=== PATIENT | female | born 1995 | race Caucasian/White ===

== ENCOUNTER 2016-10-15 14:58 | Emergency (ER) | payer OTHER ==
[2016-10-15] MEDS ORDERED: SODIUM CHLORIDE 0.9% 1,000 ML IV STA (16:53)
[2016-10-15] MEDS ORDERED: METOCLOPRAMIDE 5 MG/ML 2 ML VIAL IVP STA (16:53)
[2016-10-15 17:10] LABS: Basophils # (A) 0.1 k/uL (0-0.2); Basophils % (A) 1 %; CH 28.8; CHCM 34.3; Eosinophils # (A) 0.1 k/uL (0-0.7); Eosinophils % (A) 1 %; HCT 41.8 % (34.0-46.0); HDW 2.46; HGB 13.9 gm/dL (11.4-16.0); Luc # (Auto) 0.21; Luc % (Auto) 2; Lymphocytes # (A) 2.1 k/uL (1.0-4.8); Lymphocytes % (A) 21 %; MCH 28.1 pg (25.0-35.0); MCHC 33.3 g/dL (31.0-37.0); MCV 84.3 fL (80.0-100.0); Mean Platelet Volume 7.1; Monocytes # (A) 0.4 k/uL (0-1.0); Monocytes % (A) 4 %; Neutrophils % (A) 71 %; RBC 4.95 m/uL (3.80-5.40); RDW 12.5 % (11.5-15.5); WBC 9.8 k/uL (3.8-10.6); WBC (Perox) 9.82
[2016-10-15 17:13] LABS: Amorphous Sediment,Urine Rare /hpf; Appearance,Urine Cloudy (Clear); Bacteria,Urine Occasional /hpf; Bilirubin,Urine Negative (Negative); Glucose,Urine (UA) Negative (Negative); Ketones,Urine 4+ (Negative); Leukocyte Esterase,Urine Trace (Negative); Mucus,Urine Few /hpf; Nitrite,Urine Negative (Negative); Particle Count 9411; Protein,Urine Trace (Negative); RBC,Urine 2 /hpf (0-5); Specific Gravity,Urine 1.022 (1.001-1.035); Squamous Epithelial Cell,Urine 12 /hpf (0-4); UA Billing (MACRO vs. MICRO) MICRO; Urobilinogen,Urine <2.0 mg/dL (<2.0); WBC,Urine 12 /hpf (0-5)
[2016-10-15 17:24] LABS: ALT 21 U/L (9-52); AST 16 U/L (14-36); Alkaline Phosphatase 56 U/L (38-126); Amylase 47 U/L (30-110); Anion Gap 13 mmol/L; Blood Urea Nitrogen 9 mg/dL (7-17); Calcium 9.7 mg/dL (8.4-10.2); Carbon Dioxide 24 mmol/L (22-30); Chloride 101 mmol/L (98-107); Glucose 83 mg/dL (74-99); Non-African American GFR(MDRD) >60 (>60 ml/min/1.73 sqM); Potassium 3.7 mmol/L (3.5-5.1); Sodium 138 mmol/L (137-145); Total Bilirubin 0.6 mg/dL (0.2-1.3)
--- NOTE | 2016-10-15 17:30 | ED ---
Nausea/Vomiting/Diarrhea HPI - General Chief complaint: Nausea/Vomiting/Diarrhea Stated complaint: 8 wks preg/poss dehydration Time Seen by Provider: 10/15/16 16:42 Source: patient, RN notes reviewed Mode of arrival: ambulatory Limitations: no limitations - History of Present Illness Initial comments: 20-year-old female presents emergency Department with chief complaint of nausea vomiting. Patient states is a weeks . Patient has no see her TRANSPORTATION LEAD this he states he is scheduled appointment. Patient has fever, chills, change in bowel habits. She denies any constipation, diarrhea, dysuria or hematuria. Denies any abdominal pain,, cramping or any vaginal bleeding or vaginal discharge. Patient states she is just concerned about dehydration. She states she has no complaints of . Patient is A0. Patient has NO KNOWN DRUG ALLERGIES. Patient's currently taking vitamin. Patient offers no complaints. - Related Data Previous Rx's Medication Instructions Recorded Metoclopramide [Reglan] 10 mg PO TID PRN #15 tab 10/15/16 Allergies Allergy/AdvReac Type Severity Reaction Status Date / Time No Known Allergies Allergy Verified 10/15/16 17:17 Review of Systems ROS Statement: Those systems with pertinent positive or pertinent negative responses have been documented in the HPI. ROS Other: All systems not noted in ROS Statement are negative. Past Medical History Past Medical History: No Reported History History of Any Multi-Drug Resistant Organisms: None Reported Past Surgical History: No Surgical Hx Reported Past Psychological History: No Psychological Hx Reported Smoking Status: Never smoker Past Alcohol Use History: Rare Past Drug Use History: None Reported General Exam Limitations: no limitations General appearance: alert, in no apparent distress Head exam: Present: atraumatic, normocephalic, normal inspection ENT exam: Present: normal oropharynx Neck exam: Present: normal inspection, full ROM. Absent: tenderness, meningismus, lymphadenopathy Respiratory exam: Present: normal lung sounds bilaterally. Absent: respiratory distress, wheezes, rales, rhonchi, stridor Cardiovascular Exam: Present: regular rate, normal rhythm, normal heart sounds. Absent: systolic murmur, diastolic murmur, rubs, gallop, clicks GI/Abdominal exam: Present: soft, normal bowel sounds. Absent: distended, tenderness, guarding, rebound, rigid Back exam: Absent: CVA tenderness (R), CVA tenderness (L) Neurological exam: Present: alert, oriented X3, CN II-XII intact Skin exam: Present: warm, dry, intact, normal color. Absent: rash Course Vital Signs 10/15/16 10/15/16 16:09 18:04 Temperature 98.1 F 98.4 F Pulse Rate 87 63 Respiratory 18 16 Rate Blood Pressure 135/71 108/59 O2 Sat by Pulse 97 98 Oximetry Medical Decision Making - Medical Decision Making 20-year-old female presented emergency department with chief complaint of nausea vomiting . Patient states she feels much improved after IV fluids. Patient will be discharged with a tablet the right groin. Patient will follow-up with her TRANSPORTATION LEAD. Patient hasn't noted abdominal pain. Patient did have some ketones noted in urine though she was hydrated. Return parameters were discussed - Lab Data Result diagrams: 10/15/16 16:55 10/15/16 16:55 Lab Results 10/15/16 10/15/16 10/15/16 Range/Units 16:55 16:55 16:55 WBC 9.8 (3.8-10.6) k/uL RBC 4.95 (3.80-5.40) m/uL Hgb 13.9 (11.4-16.0) gm/dL Hct 41.8 (34.0-46.0) % MCV 84.3 (80.0-100.0) fL MCH 28.1 (25.0-35.0) pg MCHC 33.3 (31.0-37.0) g/dL RDW 12.5 (11.5-15.5) % Plt Count 284 (150-450) k/uL Neutrophils % 71 % Lymphocytes % 21 % Monocytes % 4 % Eosinophils % 1 % Basophils % 1 % Neutrophils # 7.0 (1.3-7.7) k/uL Lymphocytes # 2.1 (1.0-4.8) k/uL Monocytes # 0.4 (0-1.0) k/uL Eosinophils # 0.1 (0-0.7) k/uL Basophils # 0.1 (0-0.2) k/uL Sodium 138 (137-145) mmol/L Potassium 3.7 (3.5-5.1) mmol/L Chloride 101 (98-107) mmol/L Carbon Dioxide 24 (22-30) mmol/L Anion Gap 13 mmol/L BUN 9 (7-17) mg/dL Creatinine 0.53 (0.52-1.04) mg/dL Est GFR (MDRD) Af Amer >60 (>60 ml/min/1.73 sqM) Est GFR (MDRD) Non-Af >60 (>60 ml/min/1.73 sqM) Glucose 83 (74-99) mg/dL Calcium 9.7 (8.4-10.2) mg/dL Total Bilirubin 0.6 (0.2-1.3) mg/dL AST 16 (14-36) U/L ALT 21 (9-52) U/L Alkaline Phosphatase 56 (38-126) U/L Total Protein 8.0 (6.3-8.2) g/dL Albumin 4.6 (3.5-5.0) g/dL Amylase 47 (30-110) U/L Lipase 50 (23-300) U/L Urine Color Yellow Urine Appearance Cloudy H (Clear) Urine pH 6.0 (5.0-8.0) Ur Specific [place] 1.022 (1.001-1.035) Urine Protein Trace H (Negative) Urine Glucose (UA) Negative (Negative) Urine Ketones 4+ H (Negative) Urine Blood Trace H (Negative) Urine Nitrate Negative (Negative) Urine Bilirubin Negative (Negative) Urine Urobilinogen <2.0 (<2.0) mg/dL Ur Leukocyte Esterase Trace H (Negative) Urine RBC 2 (0-5) /hpf Urine WBC 12 H (0-5) /hpf Ur Squamous Epith Cells 12 H (0-4) /hpf Amorphous Sediment Rare H (None) /hpf Urine Bacteria Occasional H (None) /hpf Urine Mucus Few H (None) /hpf Disposition Clinical Impression: Nausea/vomiting in , Mild dehydration Disposition: HOME SELF-CARE Condition: Stable Instructions: Nausea and Vomiting in (ED) Additional Instructions: Please return to the Emergency Department if symptoms worsen or any other concerns. Prescriptions: Metoclopramide [Reglan] 10 mg PO TID PRN #15 tab PRN Reason: GERD Time of Disposition: 18:23
[2016-10-15] MEDS ORDERED: SODIUM CHLORIDE 0.9% 1,000 ML IV ONE (17:46)
[2016-10-15 18:59] VITALS: PULSE 77
[2016-10-15 19:32] VITALS: BP 129/69; RESP 18; TEMP 97.7
== END 2016-10-15 19:32 | disposition home or self-care (01) ==
LOC: EC 14:58
DX: O21.1 Hyperemesis gravidarum with metabolic disturbance (principal); Z3A.08 8 weeks gestation of pregnancy
CPT/HCPCS: 36415; 80053; 82150; 83690; 85025; 81001; 84702; 99284; 96374; 96361 ×2; J2765

== ENCOUNTER 2017-05-16 18:10 | Inpatient (IN) | payer OTHER ==
[2017-05-16 18:57] LABS: Appearance,Urine Cloudy (Clear); Bacteria,Urine Rare /hpf; Bilirubin,Urine Negative (Negative); Glucose,Urine (UA) Negative (Negative); Ketones,Urine 1+ (Negative); Leukocyte Esterase,Urine Negative (Negative); Mucus,Urine Rare /hpf; Nitrite,Urine Negative (Negative); Particle Count 1868; Protein,Urine Negative (Negative); RBC,Urine 14 /hpf (0-5); Specific Gravity,Urine 1.003 (1.001-1.035); Squamous Epithelial Cell,Urine 7 /hpf (0-4); UA Billing (MACRO vs. MICRO) MICRO; Urobilinogen,Urine <2.0 mg/dL (<2.0); WBC,Urine 3 /hpf (0-5)
[2017-05-16 19:34] LABS: ALT 40 U/L (9-52); AST 20 U/L (14-36); Blood Urea Nitrogen 5 mg/dL (7-17); LDH 409 U/L (313-618); Non-African American GFR(MDRD) >60 (>60 ml/min/1.73 sqM); Uric Acid 4.2 mg/dL (3.7-7.4)
[2017-05-16 19:35] LABS: Basophils % (A) 0 %; CHCM 34.1; Eosinophils # (A) 0.2 k/uL (0-0.7); Eosinophils % (A) 3 %; HCT 36.5 % (34.0-46.0); HDW 2.85; HGB 11.9 gm/dL (11.4-16.0); Luc # (Auto) 0.26; Luc % (Auto) 3; Lymphocytes # (A) 2.1 k/uL (1.0-4.8); Lymphocytes % (A) 26 %; MCHC 32.7 g/dL (31.0-37.0); MCV 88.6 fL (80.0-100.0); Mean Platelet Volume 9.7; Monocytes # (A) 0.4 k/uL (0-1.0); Monocytes % (A) 5 %; Neutrophils # (A) 4.8 k/uL (1.3-7.7); Neutrophils % (A) 62 %; RBC 4.11 m/uL (3.80-5.40); RDW 14.9 % (11.5-15.5); WBC 7.8 k/uL (3.8-10.6); WBC (Perox) 8.16
[2017-05-16] MEDS ORDERED: METHYLERGONOVINE 0.2 MG/ML 1 ML AMP IM PRN (20:01)
[2017-05-16] MEDS ORDERED: TERBUTALINE 1 MG/ML VIAL SQ PRN (20:01)
[2017-05-16] MEDS ORDERED: LIDOCAINE 1% (PF) 10 MG/ML (30 ML SDV) SQ PRN (20:01)
[2017-05-16] MEDS ORDERED: OXYTOCIN 10 UNIT/ML 1 ML VIAL IM PRN (20:01)
[2017-05-16] MEDS ORDERED: CARBOPROST TROMETHAMINE 250 MCG/ML 1 ML AMP IM PRN (20:01)
[2017-05-16] MEDS ORDERED: DINOPROSTONE 10 MG INSERT.ER VAGINAL ONE (20:03)
[2017-05-16] MEDS ORDERED: MAGNESIUM SULFATE-WATER PMX 4 GM in WATER FOR INJECTION 50 50ML.BAG IVPB ONE (20:05)
--- NOTE | 2017-05-16 20:15 | P.HPOB ---
History of Present Illness H&P Date: 05/16/17 Chief Complaint: IUP @ 38 5/7 weeks, PIH This is a 21-year-old 1 para 0 at 38-5/7 weeks with an estimated due date of 05/25/2017 based on last menstrual period. Patient presented to labor and delivery early this evening with complaints of decreased movement. NST was noted to be reactive but blood pressures were noted to be elevated 50s to 170s over 90s to 100s. Patient denies headache or right upper quadrant pain or visual changes. She is feeling movement on that she's on labor and delivery. And she denies contractions. On blood work blood type of A+, rubella immune, RPR nonreactive, hepatitis B surface antigen negative, HIV negative and group beta strep negative on 04/22/2017. Review of Systems Constitutional: Denies chronic headaches, Denies fatigue, Denies lethargy Ears, nose, mouth and throat: Denies headache Cardiovascular: Denies chest pain, Denies edema Respiratory: Denies cough, Denies dyspnea Gastrointestinal: Denies nausea, Denies vomiting Neurological: Reports weakness, Denies visual changes Past Medical History Past Medical History: No Reported History History of Any Multi-Drug Resistant Organisms: None Reported Past Surgical History: No Surgical Hx Reported Smoking Status: Never smoker Medications and Allergies Home Medications Medication Instructions Recorded Confirmed Type Metoclopramide [Reglan] 10 mg PO TID PRN #15 tab 10/15/16 Rx Pnv,Calcium 72/Iron/Folic Acid 1 DAILY 05/16/17 History [ Plus Tablet] Allergies Allergy/AdvReac Type Severity Reaction Status Date / Time No Known Allergies Allergy Verified 10/15/16 17:17 Exam Osteopathic Statement: *. No significant issues noted on an osteopathic structural exam other than those noted in the History and Physical/Consult. - Vital Signs Vital signs: Vital Signs Temp Pulse Resp 05/16/17 18:23 98.0 F 73 16 Intake and Output 05/16/17 05/16/17 05/16/17 06:59 14:59 22:59 Other: Weight 86.183 kg Patient Weight 05/17/17 06:59 Weight 86.183 kg - OBG Physical Exam Abdomen: gravid Cervix: 1-2/50/-3 Uterus: enlarged (eufemia for GA) Results Result Diagrams: 05/16/17 19:06 09/30/17 19:06 Abnormal Lab Results - Last 24 Hours (Table) 05/16/17 05/16/17 Range/Units 18:47 19:06 BUN 5 L (7-17) mg/dL Creatinine 0.50 L (0.52-1.04) mg/dL Urine Appearance Cloudy H (Clear) Urine Ketones 1+ H (Negative) Urine Blood Moderate H (Negative) Urine RBC 14 H (0-5) /hpf Ur Squamous Epith Cells 7 H (0-4) /hpf Urine Bacteria Rare H (None) /hpf Urine Mucus Rare H (None) /hpf Assessment and Plan (1) Term Status: Acute (2) PIH ( induced hypertension) Narrative/Plan: will start Mageniusm gtt, 4 gm bolus then 2 gm maintenance. PIH labs in the am , sims and strict I and O's. plan cervidil induction. continuous EFM/toco. HTN protocol in addition. Status: Acute
[2017-05-16] MEDS: LACTATED RINGERS 1,000 ML IV SCH (20:47)
[2017-05-16 21:05] VITALS: BMI 32.5
[2017-05-16] MEDS: MAGNESIUM SULFATE-WATER PMX 20 GM in WATER FOR INJECTION 1 500ML.BAG IV SCH (21:10)
[2017-05-16] MEDS: OXYTOCIN 20 UNITS/1000 ML NS 1,000 ML IV SCH (21:49)
[2017-05-17 04:20] LABS: ALT 40 U/L (9-52); AST 23 U/L (14-36); Blood Urea Nitrogen 3 mg/dL (7-17); LDH 445 U/L (313-618); Non-African American GFR(MDRD) >60 (>60 ml/min/1.73 sqM); Uric Acid 4.7 mg/dL (3.7-7.4)
[2017-05-17 04:24] LABS: Basophils % (A) 1 %; CH 28.9; CHCM 32.8; Eosinophils # (A) 0.2 k/uL (0-0.7); Eosinophils % (A) 3 %; HDW 2.79; HGB 12.2 gm/dL (11.4-16.0); Luc # (Auto) 0.36; Luc % (Auto) 4; Lymphocytes # (A) 1.8 k/uL (1.0-4.8); Lymphocytes % (A) 21 %; MCH 29.2 pg (25.0-35.0); MCHC 32.9 g/dL (31.0-37.0); MCV 88.6 fL (80.0-100.0); Mean Platelet Volume 8.7; Monocytes # (A) 0.4 k/uL (0-1.0); Monocytes % (A) 5 %; Neutrophils # (A) 5.6 k/uL (1.3-7.7); Neutrophils % (A) 67 %; RBC 4.17 m/uL (3.80-5.40); WBC 8.4 k/uL (3.8-10.6); WBC (Perox) 8.81
[2017-05-17] MEDS: MAGNESIUM SULFATE-WATER PMX 20 GM in WATER FOR INJECTION 1 500ML.BAG IV SCH ×2 (06:54→16:34)
[2017-05-17] MEDS ORDERED: SODIUM CHLORIDE 0.9% 100 ML BAG ONE ×2 (11:26→19:04)
[2017-05-17] MEDS ORDERED: fentaNYL (PF) 50 MCG/ML 5 ML AMP ONE ×2 (11:26→19:04)
[2017-05-17] MEDS ORDERED: BUPIVACAINE (PF) 0.25% 30 ML VIAL ONE ×2 (11:26→19:04)
[2017-05-17] MEDS: LACTATED RINGERS 1,000 ML IV SCH ×2 (11:55→23:33)
[2017-05-17] MEDS ORDERED: BUPIVACAINE (PF) 0.25% 25 ML, fentaNYL (PF) 200 MCG in SODIUM CHLORIDE 0.9% 71 ML EPIDURAL ONE (13:01)
[2017-05-17] MEDS ORDERED: CITRIC ACID-SODIUM CITRATE 15 ML CUP PO ONE (18:42)
[2017-05-17] MEDS ORDERED: ceFAZolin 2 GM in SODIUM CHLORIDE 0.9% 100 ML IVPB ONE (18:45)
[2017-05-17] MEDS ORDERED: LABETALOL 5 MG/ML VIAL MDV ONE (19:04)
[2017-05-17] MEDS ORDERED: SUCCINYLCHOLINE CHLORIDE 100 MG/5 ML SYR IV ONE (19:04)
[2017-05-17] MEDS ORDERED: METHYLERGONOVINE 0.2 MG/ML 1 ML AMP ONE (19:04)
[2017-05-17] MEDS ORDERED: MORPHINE SULFATE (PF) 0.3 MG/0.3 ML SYR ONE (19:04)
[2017-05-17] MEDS ORDERED: PROPOFOL 10 MG/ML 20 ML VIAL IV ONE (19:04)
[2017-05-17] MEDS ORDERED: OXYTOCIN 10 UNIT/ML 1 ML VIAL ONE (19:04)
[2017-05-17] MEDS ORDERED: MISOPROSTOL 200 MCG TAB RECTAL STA (20:00)
[2017-05-17 20:17] LABS: INR 0.9 (<1.2); Partial Thromboplastin Time 23.7 sec (22.0-30.0); Prothrombin Time 9.5 sec (9.0-12.0)
[2017-05-17] MEDS ORDERED: HYDROmorphone PCA 5 MG/25 ML SYRINGE IV PRN (20:32)
[2017-05-17] MEDS ORDERED: diphenhydrAMINE 25 MG CAP PO PRN (20:32)
[2017-05-17] MEDS ORDERED: diphenhydrAMINE 50 MG CAP PO PRN (20:32)
[2017-05-17] MEDS ORDERED: diphenhydrAMINE 50 MG/ML 1 ML VIAL IVP PRN ×2 (20:32)
[2017-05-17] MEDS ORDERED: Acetaminophen-Codeine 300-30mg TAB PO PRN (20:32)
[2017-05-17] MEDS ORDERED: SIMETHICONE 80 MG CHEWABLE PO PRN (20:32)
[2017-05-17] MEDS ORDERED: ZOLPIDEM 5 MG TAB PO PRN (20:32)
[2017-05-17] MEDS ORDERED: NALOXONE 0.4 MG/ML 1 ML VIAL IV PRN (20:32)
[2017-05-17] MEDS ORDERED: ONDANSETRON 4 MG/2 ML VIAL IVP PRN (20:32)
[2017-05-17] MEDS ORDERED: METOCLOPRAMIDE 5 MG/ML 2 ML VIAL IVP PRN (20:32)
--- NOTE | 2017-05-17 20:32 | P.OP ---
Date of Procedure: 05/17/17 Preoperative Diagnosis: IUP at 38 and 4, preeclampsia, arrest of first stage of labor Postoperative Diagnosis: same Procedure(s) Performed: Primary low transverse section Anesthesia: OBDULIA Surgeon: Chloe Boss Film Critic #1: Siva De La Rosa Estimated Blood Loss (ml): 1,000 IV fluids (ml): 1,300 Urine output (ml): 500 Pathology: other (Placenta) Condition: stable Disposition: observation Indications for Procedure: This is a 21-year-old 1 para 0 that presented to labor and delivery with complaints of decreased movement last night. She had a reactive NST at that time blood pressures were noted to be 178/101 and consistently remained elevated. She was admitted magnesium was started and Pitocin augmentation was begun. Her cervix at that time was a tight 2 cm 50% effaced high station. She made very little change this morning being 3 cm 50% effaced but softer and artificial rupture of membranes was done at that time. She progressed very slowly throughout the day eventually keening 5 cm. In addition her blood pressures that were 140s 150s over 90s began creeping up to 160s over low 100s to decision for primary low transverse section was made secondary to arrest of first stage of labor and increasing blood pressures. Operative Findings: Normal uterus tubes and ovaries were appreciated Description of Procedure: Patient was taken to the operating room where epidural anesthesia was found to be inadequate therefore general anesthesia was obtained by the anesthesia department. She had been prepped and draped in the normal sterile fashion in the dorsal supine position prior to this. A Almeida catheter was placed in the room when magnesium was started. A Pfannenstiel skin incision was made with the scalpel and carried through to underlying layer of fascia. The fascia was then incised in the midline and the incision was extended laterally. The superior aspect of the fascial incision was then grasped with Khushbu clamps, elevated and underlying rectus muscle was dissected off sharply. Attention was then turned to the inferior aspect of the fascial incision which was grasped with Khuhsbu clamps, elevated and underlying rectus muscles dissected off sharply. The rectus muscles were and the peritoneum was identified and entered. The bladder blade was then inserted into the abdomen the vesicouterine peritoneum was identified and a bladder flap was crated sharply. A hysterotomy incision was then made with the scalpel and the infant was delivered atraumatically and handed off to waiting RN. The uterus was then cleared of the placenta and all clots and debris. It was exteriorized and hysterotomy incision was closed with 0 Vicryl in a running locked fashion. A second layer was used to obtain hemostasis. Bleeding was noted on the left- hand side of the uterine incision therefore [id number] suture was used to obtain hemostasis. The pelvis was then irrigated copiously, and suction irrigated. The uterus was returned to the abdomen. Some bleeding was still noted on the hysterotomy incision therefore FloSeal was placed across the hysterotomy incision. Hemostasis was then appreciated. The fascial incision was then closed 0 Vicryl in a running fashion from one lateral edge the midline and the other lateral edge the midline. Subcutaneous tissue was then irrigated and hemostasis was appreciated. The skin was then closed with 4-0 Vicryl in a septic fashion. Steri-Strips and sterile dressings were applied as needed.
[2017-05-17] MEDS ORDERED: OXYTOCIN 20 UNITS/1000 ML NS 1,000 ML IV SCH (20:45)
[2017-05-17 20:56] LABS: Basophils % (A) 0 %; CH 28.8; Eosinophils % (A) 0 %; HCT 37.5 % (34.0-46.0); Luc # (Auto) 0.33; Luc % (Auto) 2; Lymphocytes # (A) 1.3 k/uL (1.0-4.8); Lymphocytes % (A) 8 %; MCH 29.1 pg (25.0-35.0); MCHC 32.1 g/dL (31.0-37.0); MCV 90.7 fL (80.0-100.0); Mean Platelet Volume 9.3; Monocytes # (A) 0.6 k/uL (0-1.0); Monocytes % (A) 4 %; Neutrophils # (A) 14.6 k/uL (1.3-7.7); Neutrophils % (A) 87 %; RBC 4.13 m/uL (3.80-5.40); RDW 14.1 % (11.5-15.5); WBC 16.9 k/uL (3.8-10.6); WBC (Perox) 17.51
[2017-05-17] MEDS ORDERED: ACETAMINOPHEN IV (For NPO) 1,000 MG in EMPTY BAG 1 BAG IVPB ONE (21:00)
[2017-05-18] MEDS: MAGNESIUM SULFATE-WATER PMX 20 GM in WATER FOR INJECTION 1 500ML.BAG IV SCH ×3 (02:40→23:44)
[2017-05-18 04:47] LABS: Basophils % (A) 0 %; CH 28.6; CHCM 32.7; Eosinophils % (A) 0 %; HCT 29.8 % (34.0-46.0); Luc # (Auto) 0.36; Luc % (Auto) 3; Lymphocytes # (A) 1.5 k/uL (1.0-4.8); Lymphocytes % (A) 11 %; MCH 29.5 pg (25.0-35.0); MCHC 33.5 g/dL (31.0-37.0); MCV 88.1 fL (80.0-100.0); Mean Platelet Volume 9.6; Monocytes # (A) 0.6 k/uL (0-1.0); Monocytes % (A) 5 %; Neutrophils # (A) 10.9 k/uL (1.3-7.7); Neutrophils % (A) 81 %; RBC 3.38 m/uL (3.80-5.40); RDW 14.2 % (11.5-15.5); WBC 13.4 k/uL (3.8-10.6); WBC (Perox) 13.41
[2017-05-18 05:01] LABS: ALT 34 U/L (9-52); AST 28 U/L (14-36); Blood Urea Nitrogen 2 mg/dL (7-17); LDH 655 U/L (313-618); Non-African American GFR(MDRD) >60 (>60 ml/min/1.73 sqM); Uric Acid 5.7 mg/dL (3.7-7.4)
[2017-05-18] MEDS: LACTATED RINGERS 1,000 ML IV SCH ×4 (05:27→22:41)
[2017-05-18] MEDS: OXYTOCIN 20 UNITS/1000 ML NS 1,000 ML IV SCH ×2 (05:27→22:41)
--- NOTE | 2017-05-18 08:03 | P.PN ---
Subjective Principal diagnosis: Postoperative day #1 Patient denies headache, no right upper quadrant pain, no visual changes. Overall tired, but hungry. Negative flatus Objective - Vital Signs Vital signs: Vital Signs Temp 97.6 F 05/18/17 06:30 Pulse 77 05/18/17 06:30 Resp 16 05/18/17 06:30 BP 135/77 05/18/17 06:30 Pulse Ox 99 05/18/17 02:30 Intake & Output 05/17/17 05/18/17 05/18/17 18:59 06:59 18:59 Intake Total 3885.761 7147 125 Output Total 1150 1000 650 Balance 433.333 775 -525 Intake: IV 50 500 50 Magnesium Sulfate-Water 50 500 50 Pmx 20 gm In Water For Injection 1 500ml.bag @ 2 GM/HR 50 mls/hr IV .Q10H LOWELL Rx#:[id number] Intake, IV Titration 6262.599 2861 75 Amount ACETAMINOPHEN IV (For NPO 100 ) 1,000 mg In Empty Bag 1 bag @ 400 mls/hr IVPB ONCE ONE Rx#:[id number] Lactated Ringers 1,000 ml 375 75 @ 125 mls/hr IV .Q8H LOWELL Rx#:[id number] Lactated Ringers 1,000 ml 1020 @ 20 mls/hr IV .Q24H LOWELL Rx#:[id number] Magnesium Sulfate-Water 483.333 500 Pmx 20 gm In Water For Injection 1 500ml.bag @ 2 GM/HR 50 mls/hr IV .Q10H LOWELL Rx#:[id number] Oxytocin 20 Units/1000 ml 30 Ns 1,000 ml @ 1 MILLIUNIT/MIN 3 mls/hr IV .Q24H LOWELL Rx#:[id number] Oxytocin 20 Units/1000 ml 300 Ns 1,000 ml @ Per Protocol IV .Q0M LOWELL Rx#: [id number] Output: Urine 1150 1000 650 - Constitutional General appearance: Present: average body habitus, cooperative - EENT Eyes: Present: PERRLA ENT: Present: hearing grossly normal - Neck Neck: Present: normal ROM - Respiratory Respiratory: bilateral: CTA - Cardiovascular Rhythm: regular - Gastrointestinal General gastrointestinal: Present: normal bowel sounds - Integumentary Integumentary Comment(s): Incision clean and dry, intact, Steri-Strips applied. Fundus firm, midline, nontender, 18 week size. Integumentary: Present: normal turgor - Neurologic Neurologic: Present: CNII-XII intact - Musculoskeletal Musculoskeletal Comment(s): +1 edema, 2+ reflexes, no clonus. Musculoskeletal: Present: generalized weakness, strength equal bilaterally - Psychiatric Psychiatric: Present: A&O x's 3, appropriate affect, intact judgment & insight - Labs CBC & Chem 7: 05/18/17 04:33 05/18/17 04:33 Labs: Abnormal Lab Results - Last 24 Hours (Table) 05/17/17 05/17/17 05/18/17 Range/Units 19:50 20:47 04:33 WBC 16.9 H (3.8-10.6) k/uL RBC (3.80-5.40) m/uL Hgb (11.4-16.0) gm/dL Hct (34.0-46.0) % Neutrophils # 14.6 H (1.3-7.7) k/uL Fibrinogen 511 H (200-500) mg/dL BUN 2 L (7-17) mg/dL Creatinine 0.50 L (0.52-1.04) mg/dL Lactate Dehydrogenase 655 H (313-618) U/L 05/18/17 Range/Units 04:33 WBC 13.4 H (3.8-10.6) k/uL RBC 3.38 L (3.80-5.40) m/uL Hgb 10.0 L D (11.4-16.0) gm/dL Hct 29.8 L (34.0-46.0) % Neutrophils # 10.9 H (1.3-7.7) k/uL Fibrinogen (200-500) mg/dL BUN (7-17) mg/dL Creatinine (0.52-1.04) mg/dL Lactate Dehydrogenase (313-618) U/L
[2017-05-18] MEDS: SENNOSIDES-DOCUSATE SODIUM 1 EACH TAB PO SCH ×2 (08:47→21:26)
[2017-05-18] MEDS: Acetaminophen-Codeine 300-30mg TAB PO PRN ×2 (08:47→16:43)
[2017-05-18] MEDS: IBUPROFEN 600 MG TAB PO PRN ×2 (12:54→22:33)
[2017-05-19] MEDS: Acetaminophen-Codeine 300-30mg TAB PO PRN ×3 (00:42→22:43)
--- NOTE | 2017-05-19 11:27 | P.PN ---
Subjective Principal diagnosis: Postoperative day number two No headache, visual changes, or right upper quadrant pain. Feeling stronger. Minimal lochia rubra. No complaints Objective - Vital Signs Vital signs: Vital Signs Temp 98.5 F 05/19/17 07:56 Pulse 75 05/19/17 07:56 Resp 16 05/19/17 07:56 BP 143/83 05/19/17 07:56 Pulse Ox 96 05/19/17 07:56 Intake & Output 05/18/17 05/19/17 05/19/17 18:59 06:59 18:59 Intake Total 625 Output Total 2400 Balance -1775 Intake: IV 50 Magnesium Sulfate-Water 50 Pmx 20 gm In Water For Injection 1 500ml.bag @ 2 GM/HR 50 mls/hr IV .Q10H LOWELL Rx#:[id number] Intake, IV Titration 575 Amount Lactated Ringers 1,000 ml 75 @ 125 mls/hr IV .Q8H LOWELL Rx#:[id number] Magnesium Sulfate-Water 500 Pmx 20 gm In Water For Injection 1 500ml.bag @ 2 GM/HR 50 mls/hr IV .Q10H LOWELL Rx#:[id number] Output: Urine 2400 Uretheral (Almeida) 1000 Other: Voiding Method Toilet # Voids 1 1 - Constitutional General appearance: Present: average body habitus, cooperative - EENT Eyes: Present: PERRLA ENT: Present: hearing grossly normal - Neck Neck: Present: normal ROM Thyroid: bilateral: normal size - Respiratory Respiratory: bilateral: CTA - Cardiovascular Rhythm: regular - Gastrointestinal General gastrointestinal: Present: normal bowel sounds - Genitourinary Genitourinary Comment(s): Incision clean and dry, intact, well approximated. Fundus firm, midline, symmetric, 18 week size - Neurologic Neurologic: Present: CNII-XII intact - Musculoskeletal Musculoskeletal: Present: gait normal, strength equal bilaterally - Psychiatric Psychiatric: Present: A&O x's 3, appropriate affect, intact judgment & insight - Additional findings Additional findings: 1+ peripheral edema. 2+ reflexes bilaterally. No clonus. - Labs CBC & Chem 7: 05/18/17 04:33 05/18/17 04:33 Assessment and Plan Plan: May DC IV. May shower. Circumcision now. Likely discharge home tomorrow. Time with Patient: Less than 30
[2017-05-19] MEDS: IBUPROFEN 600 MG TAB PO PRN (13:43)
[2017-05-19] MEDS: SENNOSIDES-DOCUSATE SODIUM 1 EACH TAB PO SCH ×2 (13:50→19:47)
[2017-05-20] MEDS: Acetaminophen-Codeine 300-30mg TAB PO PRN ×2 (04:13→23:48)
--- NOTE | 2017-05-20 08:18 | P.DS ---
Providers Date of admission: 05/16/17 20:00 Expected date of discharge: 05/20/17 Attending physician: Gosia Alves [facility] Course: This is a 21-year-old white female 1 para 0 EDC 05/25/2017 at 38-6/7 weeks' gestation. Patient presented to labor and delivery in early labor. On admission her blood pressure was noted to be 179/95. Artificial amniorrhexis revealed clear fluid. Please see dictated history and physical for details. Magnesium sulfate was started, blood pressure medications were given, blood pressure remained high and therefore the decision was made to proceed with primary low transverse section. Patient gave to a liveborn male with scores of 9 and 9 at one and 5 minutes respectively. Methergine was given along with FloSeal intraoperatively. weighed 7 lbs. 7 oz. or 3380 g. This was done under general analgesia, please see dictated operative note for details. Postoperatively the patient has done reasonably well. Her blood pressures have slowly stabilized, they are 140s over 70s to 80s this morning. She is feeling well. She is voiding, ambulating and passing flatus without difficulty. Vital signs are stable and she is afebrile. The incision is clean and dry, intact, Steri-Strips applied. The fundus is firm, midline, symmetric, 18 week size. Breast-feeding is going well. Circumcision has been performed. The extremities reveal +1 edema, +1 to +2 reflexes, no clonus. Patient denies headache, visual changes, or right upper quadrant pain. She is feeling steady and well for discharge home. Patient will be discharged home later today. She will obtain a sphygmomanometer and take her blood pressures at home twice daily. She will write these down, and bring them to the office with her in 1 week. I have given her prescription for a double electric breast pump to be used as needed. She will continue taking her vitamin daily. She will call me with any fevers shakes or chills, foul smelling or copious lochia, with the passage of large blood clots, with any pain not alleviated by Aleve, or indeed with any concerns. Patient Condition at Discharge: Good Plan - Discharge Summary New Discharge Prescriptions: No Action Pnv,Calcium 72/Iron/Folic Acid [ Plus Tablet] 1 tab DAILY Discharge Medication List Pnv,Calcium 72/Iron/Folic Acid [ Plus Tablet] 1 tab DAILY 05/16/17 [ History] Follow up Appointment(s)/Referral(s): Gosia Alves MD [Primary Care Provider] - 1 Week Discharge Disposition: HOME SELF-CARE
[2017-05-20] MEDS: SENNOSIDES-DOCUSATE SODIUM 1 EACH TAB PO SCH ×2 (09:11→22:37)
[2017-05-20] MEDS: IBUPROFEN 600 MG TAB PO PRN (12:33)
[2017-05-20] MEDS ORDERED: NIFEdipine XL 30 MG TAB.ER.24 PO SCH (12:45)
[2017-05-20] MEDS ORDERED: NIFEdipine XL 30 MG TAB.ER.24 PO STA (17:33)
[2017-05-21] MEDS: IBUPROFEN 600 MG TAB PO PRN ×3 (07:55→19:35)
--- NOTE | 2017-05-21 08:01 | P.DS ---
Providers Date of admission: 05/16/17 20:00 Expected date of discharge: 05/21/17 Attending physician: Gosia Alves Primary care physician: Gosia Alves [facility] Course: This is an addendum to the previously dictated discharge summary yesterday. She lives discharge was canceled secondary to elevated blood pressures. She was given 2 doses of Procardia XL yesterday, 30 mg. Her blood pressures were noted to be in the 150s over 80s to 90s range. She is receiving her second dose of Procardia 60 mg XL at this time. Physical exam appears healthy. The patient denies headache, visual changes, or right upper quadrant pain. She feels stronger and more energetic. Her incision is clean and dry, intact with Steri-Strips applied. Her fundus is firm , nontender, symmetric, 18 week size. Extremities reveal trace to 1+ edema. Reflexes are normal at 1+. is doing well. Morning blood pressure is 140/83. Patient will be watched today on the 60 mg of Procardia, and my plan is for ultimate discharge home later this afternoon. Again we have reviewed contraceptive options, we have reviewed with the patient will call me with any fevers shakes or chills, foul smelling or copious lochia, with the passage of large blood clots, with any pain not alleviated by [id number] meds, with any blood pressure elevations. She will take her blood pressure 1-2 times daily , right come down, and call me if systolic is consistently above 140 or diastolic greater than 90. I believe the patient is safe and in good condition for discharge home today. Patient Condition at Discharge: Good Plan - Discharge Summary New Discharge Prescriptions: No Action Pnv,Calcium 72/Iron/Folic Acid [ Plus Tablet] 1 tab DAILY Discharge Medication List Pnv,Calcium 72/Iron/Folic Acid [ Plus Tablet] 1 tab DAILY 05/16/17 [ History] Follow up Appointment(s)/Referral(s): Gosia Alves MD [Primary Care Provider] - 1 Week Discharge Disposition: HOME SELF-CARE
[2017-05-21] MEDS: SENNOSIDES-DOCUSATE SODIUM 1 EACH TAB PO SCH (09:24)
[2017-05-21 12:32] LABS: Basophils % (A) 1 %; CH 28.5; CHCM 31.9; Eosinophils # (A) 0.6 k/uL (0-0.7); Eosinophils % (A) 8 %; HCT 30.5 % (34.0-46.0); HDW 2.74; HGB 9.8 gm/dL (11.4-16.0); Luc # (Auto) 0.27; Luc % (Auto) 4; Lymphocytes # (A) 1.7 k/uL (1.0-4.8); Lymphocytes % (A) 22 %; MCHC 32.3 g/dL (31.0-37.0); MCV 89.8 fL (80.0-100.0); Mean Platelet Volume 9.1; Monocytes # (A) 0.3 k/uL (0-1.0); Monocytes % (A) 4 %; Neutrophils # (A) 4.8 k/uL (1.3-7.7); Neutrophils % (A) 63 %; RDW 13.8 % (11.5-15.5); WBC 7.6 k/uL (3.8-10.6); WBC (Perox) 7.98
[2017-05-21 12:47] LABS: ALT 39 U/L (9-52); AST 22 U/L (14-36); Blood Urea Nitrogen 10 mg/dL (7-17); Non-African American GFR(MDRD) >60 (>60 ml/min/1.73 sqM); Uric Acid 4.3 mg/dL (3.7-7.4)
[2017-05-21] MEDS ORDERED: LABETALOL 200 MG TAB PO STA (17:00)
[2017-05-21 18:04] VITALS: RESP 16
[2017-05-21] MEDS ORDERED: hydrALAZINE HCL 25 MG TAB PO STA (18:05)
[2017-05-21] MEDS: ACETAMINOPHEN TAB 325 MG TAB PO PRN (18:39)
[2017-05-21] MEDS ORDERED: hydrALAZINE HCL 25 MG TAB PO PRN (19:21)
[2017-05-22] MEDS: SENNOSIDES-DOCUSATE SODIUM 1 EACH TAB PO SCH (00:43)
[2017-05-22] MEDS: ACETAMINOPHEN TAB 325 MG TAB PO PRN (00:45)
[2017-05-22 07:25] VITALS: TEMP 98.8
--- NOTE | 2017-05-22 07:36 | P.DS ---
Providers Date of admission: 05/16/17 20:00 Expected date of discharge: 05/22/17 Attending physician: Gosia Alves Consults: 05/21/17 17:07 Consult Physician Stat Consulting Provider: Dieter Rich Jr Consult Reason/Comments: bp management Do you want consulting provider notified?: Yes Primary care physician: Gosia [facility] Course: This 21-year-old female 1 para 0 EDC 05/25/2017 at 38-6/7 weeks' gestation is postoperative day 5, status post low transverse section for nonreassuring heart tones and severe preeclampsia. Patient was managed with magnesium sulfate, and did well postoperatively for the first 48 hours. Her blood pressure was noted to increase, and therefore she was initially started on Procardia XL 30 mg daily. This is increased to Procardia 60 mg daily. In addition, labetalol 200 mg was added orally. Despite our best efforts, her blood pressure continued to be elevated. Discharge has been counseled 2. Dr. Rich was consulted yesterday, and hydralazine 25 mg by mouth was ordered. Blood pressure responded nicely, 120s over 80s. However through the night, blood pressure elevated once again and an additional dose of 25 mg was given. Blood pressure this morning 149/90, pulse 86. Patient feels very well. She has had a mild headache that has responded nicely to Motrin. Her incision is clean and dry, intact, Steri-Strips applied. Fundus is firm, midline, mobile, nontender. Extremities reveal trace edema. There are only 1+ reflexes. There is no clonus. Her breasts are not engorged. Her infant has been circumcised and is doing well, he has been discharged. This morning I am awaiting Dr. Rich's plan on blood pressure management. From my perspective, she is stable for discharge home and will follow-up with me in the office in 2 weeks. Discharge instructions have been reviewed now many times and patient understands well. She will be sure to call me with any fevers shakes or chills, foul smelling or copious lochia, with the passage of large blood clots, with any pain not alleviated by [id number] ibuprofen products, or indeed with any concerns. Patient Condition at Discharge: Good Plan - Discharge Summary New Discharge Prescriptions: No Action Pnv,Calcium 72/Iron/Folic Acid [ Plus Tablet] 1 tab DAILY Discharge Medication List Pnv,Calcium 72/Iron/Folic Acid [ Plus Tablet] 1 tab DAILY 05/16/17 [ History] Follow up Appointment(s)/Referral(s): Gosia Alves MD [Primary Care Provider] - 2 Weeks Discharge Disposition: HOME SELF-CARE
[2017-05-22 11:10] VITALS: BP 149/82
[2017-05-22] MEDS: IBUPROFEN 600 MG TAB PO PRN (13:40)
[2017-05-22 14:51] VITALS: PULSE 97
--- NOTE | 2017-05-22 17:45 | P.CONS ---
History of Present Illness - Reason for Consult Consult date: 05/22/17 Uncontrolled hypertension Requesting physician: Gosia Alves - Chief Complaint Uncontrolled hypertension - History of Present Illness This is a 21-year-old 1 para 0 at 38-5/7 weeks with estimated due date of 05/25/2017 based on last menstrual period. presented to labor and delivery early 7 with complaints of decreased movement . NST was done and be reactive but blood pressure was noted be elevated 50s to 170s over 90s. Patient denied headache tonight for a right upper quadrant pain denied visual changes . She is feeling movement since she had come up to labor and delivery. And denies contractions. This patient ended up going to section. And during her hospital stay and postoperative course her blood pressure is increased 200/120 I was asked to consult on 05/21/2017 Re: Blood pressure patient was placed on Lopressor 100 mg repeat blood pressure 30 minutes later was approximately 150-160/102 which was an improvement I added hydralazine 25 mg twice daily and the blood pressure came down nicely to 140/80 she was giving a second hydralazine approximately 6 hours later and the blood pressure stayed in that area a presented to see the patient at 5:37 on 2016. Blood pressure has remained down decision was to allow patient to go home on metoprolol 100 mg daily hydralazine 25 mg twice daily with see patient in my office on Thursday and would follow her weekly until we they're weaned her blood pressure meds down or patient tolerated something other than hydralazine and metoprolol. Review of Systems Constitutional: Reports as per HPI Ears, nose, mouth and throat: Reports as per HPI Cardiovascular: Reports as per HPI Respiratory: Reports as per HPI Gastrointestinal: Reports as per HPI Genitourinary: Reports as per HPI Menstruation: Reports as per HPI Musculoskeletal: Reports as per HPI Integumentary: Reports as per HPI Neurological: Reports as per HPI Psychiatric: Reports as per HPI Endocrine: Reports as per HPI Past Medical History Past Medical History: No Reported History History of Any Multi-Drug Resistant Organisms: None Reported Past Surgical History: No Surgical Hx Reported Past Anesthesia/Blood Transfusion Reactions: No Reported Reaction Smoking Status: Never smoker - Past Family History Mother Family Medical History: No Reported History Medications and Allergies Home Medications Medication Instructions Recorded Confirmed Type Pnv,Calcium 72/Iron/Folic Acid 1 tab DAILY 05/16/17 05/16/17 History [ Plus Tablet] Allergies Allergy/AdvReac Type Severity Reaction Status Date / Time No Known Allergies Allergy Verified 10/15/16 17:17 Physical Exam Osteopathic Statement: *. No significant issues noted on an osteopathic structural exam other than those noted in the History and Physical/Consult. Vitals: Vital Signs Temp Pulse Pulse Resp BP 05/22/17 11:09 95 149/82 05/22/17 07:36 97 151/91 05/22/17 07:20 98.8 F 86 16 149/90 05/22/17 03:10 137/89 05/22/17 00:15 98.1 F 73 16 151/97 05/21/17 23:14 150/90 05/21/17 19:10 88 16 137/80 05/21/17 18:03 105 H 16 152/92 Intake and Output 05/22/17 05/22/17 05/22/17 06:59 14:59 22:59 Other: Weight 86.183 kg Patient Weight 05/23/17 06:59 Weight 86.183 kg General: [Patient awake, alert and oriented times 3. Patient in no acute distress.] HEENT: [PERRL. EOMI. No pharyngeal erythema or exudate.] Neck: [No adenopathy.] Cardiac: [Heart regular in rate and rhythm. No S3. No S4. No clicks, rubs. No murmur.] Lungs: [Clear to auscultation bilaterally.] Abdomen: [No mass. No organomegaly. Bowel sounds presnt and normoactive in all 4 quadrants.] Extremes: [No edema no cyanosis no claudication normal pulses] : [] Musculoskeletal: [No joint erythema, mild 1+ edema to bilateral feet or tenderness.] Skin: [No rash.] Neurologic: [No lateralizing deficits. CN II - XII grossly intact.] Lymphatic: [No adenopathy.] Results CBC & Chem 7: 05/21/17 12:19 05/21/17 12:19 Assessment and Plan (1) PIH ( induced hypertension) Status: Acute Plan: -induced hypertension plan is to leave patient on anti- hypertensive including metoprolol succinate 100 mg daily And hydralazine 25 mg twice daily Reevaluate in my office weekly until blood pressure medicine is able to be weaned off if possible Will see patient on Thursday or Thursday next week Thank you Dr. Alves for this most interesting consultation feel free to ask for this type of consult anytime you would like Time with Patient: Greater than 30
== END 2017-05-22 17:07 | disposition home or self-care (01) | DRG 766 ==
LOC: FBPOP 18:10 → 4FBP 20:00
PROVIDERS: ADMIT Obstetrics & Gynecology Obstetrics; ATTEND Obstetrics & Gynecology
PROC: 00HU33Z Insertion of Infusion Device into Spinal Canal, Percutaneous Approach (ICD-10-PCS; 2017-05-17)
PROC: 3E0R3BZ Introduction of Anesthetic Agent into Spinal Canal, Percutaneous Approach (ICD-10-PCS; 2017-05-17)
PROC: 10D00Z1 Extraction of Products of Conception, Low, Open Approach (ICD-10-PCS; principal; 2017-05-17 19:04)
DX: O14.14 Severe pre-eclampsia complicating childbirth (principal); O36.8130 Decreased fetal movements, third trimester, not applicable or unspecified; Z37.0 Single live birth; O62.1 Secondary uterine inertia; Z3A.38 38 weeks gestation of pregnancy; Z79.899 Other long term (current) drug therapy
CPT/HCPCS: 59025; 81001; 82565; 83615; 84450; 84460; 84520; 84550; 85025; 85384; 85610; 85730; 86850; 86900; 86901; 88307; 99215

== ENCOUNTER 2018-09-14 10:15 | Emergency (ER) | payer BC, OTHER ==
[2018-09-14 10:33] VITALS: RESP 18; TEMP 98.4
[2018-09-14] MEDS ORDERED: METOCLOPRAMIDE 5 MG/ML 2 ML VIAL IVP STA (10:54)
[2018-09-14] MEDS ORDERED: SODIUM CHLORIDE 0.9% 1,000 ML IV STA (10:54)
--- NOTE | 2018-09-14 11:13 | ED ---
General Adult HPI - General Chief complaint: Nausea/Vomiting/Diarrhea Stated complaint: 9 weeks ,vomiting Time Seen by Provider: 09/14/18 10:38 Source: patient, RN notes reviewed Mode of arrival: ambulatory Limitations: no limitations - History of Present Illness Initial comments: Patient 22-year-old female G2, P1, presenting to the emergency room today with a chief complaint of increased nausea vomiting over the last 3 days. Patient denies any abdominal pain. States she saw some spotting when she wiped last night. Denies any bleeding this morning. Denies any abdominal pain. States increased nausea vomiting time keeping anything down. Patient denies any other complaints or symptoms. Patient denies any recent fever, chills, shortness of breath, chest pain, back pain, numbness or tingling, dysuria or hematuria, constipation or diarrhea, headaches or visual changes, or any other complaints. - Related Data Previous Rx's Medication Instructions Recorded Metoclopramide HCl [Reglan] 10 mg PO Q6HR PRN #10 tab 09/14/18 Allergies Allergy/AdvReac Type Severity Reaction Status Date / Time No Known Allergies Allergy Verified 09/14/18 11:06 Review of Systems ROS Statement: Those systems with pertinent positive or pertinent negative responses have been documented in the HPI. ROS Other: All systems not noted in ROS Statement are negative. Past Medical History Past Medical History: No Reported History History of Any Multi-Drug Resistant Organisms: None Reported Past Surgical History: Section Past Anesthesia/Blood Transfusion Reactions: No Reported Reaction Past Psychological History: No Psychological Hx Reported Smoking Status: Never smoker Past Alcohol Use History: Occasional Past Drug Use History: None Reported - Past Family History Mother Family Medical History: No Reported History General Exam - General Exam Comments Initial Comments: General: The patient is awake and alert, in no distress, and does not appear acutely ill. Eye: There is normal conjunctiva bilaterally. No signs of icterus. Ears, nose, mouth and throat: There are moist mucous membranes and no oral lesions. Neck: The neck is supple, there is no tenderness or JVD. Cardiovascular: There is a regular rate and rhythm. No murmur, rub or gallop is appreciated. Respiratory: Lungs are clear to auscultation, respirations are non-labored, breath sounds are equal. No wheezes, stridor, rales, or rhonchi. Gastrointestinal: Soft, non-distended, non-tender abdomen without masses or organomegaly noted. There is no rebound or guarding present. No CVA tenderness. Musculoskeletal: Normal ROM, no tenderness. Neurological: A&O x 3. CN II-XII intact, There are no obvious motor or sensory deficits. Coordination appears grossly intact. Speech is normal. Skin: Skin is warm and dry and no rashes or lesions are noted. Psychiatric: Cooperative, appropriate mood & affect, normal judgment. Limitations: no limitations Course Vital Signs 09/14/18 10:30 Temperature 98.4 F Pulse Rate 89 Respiratory 18 Rate Blood Pressure 129/84 O2 Sat by Pulse 98 Oximetry Medical Decision Making - Medical Decision Making Patient reexamined at this time shows no signs of distress. Patient states she' s feeling better. Patient's abdomen is soft nontender. Patient's not had any bleeding here in the emergency room. She does have an appointment with her doctor tomorrow. Patient was given liter bolus. She states she feels well like to be discharged at this time. Will be given prescription for Reglan. She does have an appointment tomorrow with her OB that she's going to follow-up with. - Lab Data Result diagrams: 09/14/18 11:23 09/14/18 11:23 Lab Results 09/14/18 09/14/18 09/14/18 Range/Units 11:23 11:23 12:10 WBC 9.4 (3.8-10.6) k/uL RBC 5.45 H (3.80-5.40) m/uL Hgb 14.8 (11.4-16.0) gm/dL Hct 45.6 (34.0-46.0) % MCV 83.7 (80.0-100.0) fL MCH 27.1 (25.0-35.0) pg MCHC 32.3 (31.0-37.0) g/dL RDW 13.2 (11.5-15.5) % Plt Count 310 (150-450) k/uL Neutrophils % 78 % Lymphocytes % 15 % Monocytes % 4 % Eosinophils % 1 % Basophils % 1 % Neutrophils # 7.3 (1.3-7.7) k/uL Lymphocytes # 1.5 (1.0-4.8) k/uL Monocytes # 0.4 (0-1.0) k/uL Eosinophils # 0.1 (0-0.7) k/uL Basophils # 0.1 (0-0.2) k/uL Sodium 138 (137-145) mmol/L Potassium 4.7 (3.5-5.1) mmol/L Chloride 105 (98-107) mmol/L Carbon Dioxide 17 L (22-30) mmol/L Anion Gap 16 mmol/L BUN 15 (7-17) mg/dL Creatinine 0.56 (0.52-1.04) mg/dL Est GFR (CKD-EPI)AfAm >90 (>60 ml/min/1.73 sqM) Est GFR (CKD-EPI)NonAf >90 (>60 ml/min/1.73 sqM) Glucose 64 L (74-99) mg/dL Calcium 9.8 (8.4-10.2) mg/dL Total Bilirubin 0.9 (0.2-1.3) mg/dL AST 20 (14-36) U/L ALT 17 (9-52) U/L Alkaline Phosphatase 67 (38-126) U/L Total Protein 8.9 H (6.3-8.2) g/dL Albumin 5.2 H (3.5-5.0) g/dL Urine Color Urine Appearance (Clear) Urine pH (5.0-8.0) Ur Specific [place] (1.001-1.035) Urine Protein (Negative) Urine Glucose (UA) (Negative) Urine Ketones (Negative) Urine Blood (Negative) Urine Nitrite (Negative) Urine Bilirubin (Negative) Urine Urobilinogen (<2.0) mg/dL Ur Leukocyte Esterase (Negative) Urine RBC (0-5) /hpf Urine WBC (0-5) /hpf Ur Squamous Epith Cells (0-4) /hpf Urine Bacteria (None) /hpf Hyaline Casts (0-2) /lpf Urine Mucus (None) /hpf Urine HCG, Qual Detected (Not Detectd) 09/14/18 Range/Units 12:10 WBC (3.8-10.6) k/uL RBC (3.80-5.40) m/uL Hgb (11.4-16.0) gm/dL Hct (34.0-46.0) % MCV (80.0-100.0) fL MCH (25.0-35.0) pg MCHC (31.0-37.0) g/dL RDW (11.5-15.5) % Plt Count (150-450) k/uL Neutrophils % % Lymphocytes % % Monocytes % % Eosinophils % % Basophils % % Neutrophils # (1.3-7.7) k/uL Lymphocytes # (1.0-4.8) k/uL Monocytes # (0-1.0) k/uL Eosinophils # (0-0.7) k/uL Basophils # (0-0.2) k/uL Sodium (137-145) mmol/L Potassium (3.5-5.1) mmol/L Chloride (98-107) mmol/L Carbon Dioxide (22-30) mmol/L Anion Gap mmol/L BUN (7-17) mg/dL Creatinine (0.52-1.04) mg/dL Est GFR (CKD-EPI)AfAm (>60 ml/min/1.73 sqM) Est GFR (CKD-EPI)NonAf (>60 ml/min/1.73 sqM) Glucose (74-99) mg/dL Calcium (8.4-10.2) mg/dL Total Bilirubin (0.2-1.3) mg/dL AST (14-36) U/L ALT (9-52) U/L Alkaline Phosphatase (38-126) U/L Total Protein (6.3-8.2) g/dL Albumin (3.5-5.0) g/dL Urine Color Yellow Urine Appearance Clear (Clear) Urine pH 5.5 (5.0-8.0) Ur Specific [place] 1.032 (1.001-1.035) Urine Protein 1+ H (Negative) Urine Glucose (UA) Negative (Negative) Urine Ketones 4+ H (Negative) Urine Blood Moderate H (Negative) Urine Nitrite Negative (Negative) Urine Bilirubin Negative (Negative) Urine Urobilinogen 2.0 (<2.0) mg/dL Ur Leukocyte Esterase Negative (Negative) Urine RBC 3 (0-5) /hpf Urine WBC 1 (0-5) /hpf Ur Squamous Epith Cells 8 H (0-4) /hpf Urine Bacteria Rare H (None) /hpf Hyaline Casts 2 (0-2) /lpf Urine Mucus Few H (None) /hpf Urine HCG, Qual (Not Detectd) Disposition Clinical Impression: Hyperemesis gravidarum Disposition: HOME SELF-CARE Condition: Good Instructions (If sedation given, give patient instructions): Hyperemesis Gravidarum (ED) Additional Instructions: Please use medication as discussed. Please follow-up with [facility] tomorrow. Please return to emergency room if the symptoms increase or worsen or for any other concerns. Prescriptions: Metoclopramide HCl [Reglan] 10 mg PO Q6HR PRN #10 tab PRN Reason: Nausea Is patient prescribed a controlled substance at d/c from ED?: No Referrals: Anahi Li DO [Primary Care Provider] - 1-2 days Time of Disposition: 13:09
[2018-09-14 12:12] LABS: Basophils # (A) 0.1 k/uL (0-0.2); Basophils % (A) 1 %; Eosinophils # (A) 0.1 k/uL (0-0.7); Eosinophils % (A) 1 %; HCT 45.6 % (34.0-46.0); HGB 14.8 gm/dL (11.4-16.0); Lymphocytes # (A) 1.5 k/uL (1.0-4.8); Lymphocytes % (A) 15 %; MCH 27.1 pg (25.0-35.0); MCHC 32.3 g/dL (31.0-37.0); MCV 83.7 fL (80.0-100.0); Mean Platelet Volume 7.3; Monocytes # (A) 0.4 k/uL (0-1.0); Monocytes % (A) 4 %; Neutrophils # (A) 7.3 k/uL (1.3-7.7); Neutrophils % (A) 78 %; Platelet Count 310 k/uL (150-450); RBC 5.45 m/uL (3.80-5.40); RDW 13.2 % (11.5-15.5); WBC 9.4 k/uL (3.8-10.6)
[2018-09-14 12:34] LABS: Appearance,Urine Clear (Clear); Bacteria,Urine Rare /hpf; Bilirubin,Urine Negative (Negative); Blood,Urine Moderate (Negative); Color,Urine Yellow; Glucose,Urine (UA) Negative (Negative); Hyaline Casts,Urine 2 /lpf (0-2); Ketones,Urine 4+ (Negative); Leukocyte Esterase,Urine Negative (Negative); Mucus,Urine Few /hpf; Nitrite,Urine Negative (Negative); PH, Urine 5.5 (5.0-8.0); Protein,Urine 1+ (Negative); RBC,Urine 3 /hpf (0-5); Specific Gravity,Urine 1.032 (1.001-1.035); Squamous Epithelial Cell,Urine 8 /hpf (0-4)
[2018-09-14 12:52] LABS: ALT 17 U/L (9-52); AST 20 U/L (14-36); Albumin 5.2 g/dL (3.5-5.0); Alkaline Phosphatase 67 U/L (38-126); Anion Gap 16 mmol/L; Blood Urea Nitrogen 15 mg/dL (7-17); Calcium 9.8 mg/dL (8.4-10.2); Carbon Dioxide 17 mmol/L (22-30); Chloride 105 mmol/L (98-107); Glucose 64 mg/dL (74-99); Potassium 4.7 mmol/L (3.5-5.1); Sodium 138 mmol/L (137-145); Total Bilirubin 0.9 mg/dL (0.2-1.3); Total Protein 8.9 g/dL (6.3-8.2)
[2018-09-14 13:38] VITALS: BP 119/75; PULSE 68
== END 2018-09-14 13:36 | disposition home or self-care (01) ==
LOC: EC 10:15
DX: O21.0 Mild hyperemesis gravidarum (principal); Z3A.09 9 weeks gestation of pregnancy
CPT/HCPCS: 36415; 80053; 81001; 81025; 85025; 96361; 96374; 99284

== ENCOUNTER 2019-04-14 10:07 | Inpatient (IN) | payer BC, OTHER ==
[2019-04-12 13:51] VITALS: BMI 32.5
[2019-04-14] MEDS ORDERED: LACTATED RINGERS 1,000 ML IV ONE (10:29)
[2019-04-14] MEDS ORDERED: CITRIC ACID-SODIUM CITRATE 15 ML CUP PO ONE (10:29)
[2019-04-14 10:54] LABS: Basophils % (A) 1 %; Eosinophils # (A) 0.3 k/uL (0-0.7); Eosinophils % (A) 4 %; HGB 12.5 gm/dL (11.4-16.0); Lymphocytes % (A) 25 %; MCH 29.4 pg (25.0-35.0); MCHC 33.9 g/dL (31.0-37.0); MCV 86.8 fL (80.0-100.0); Mean Platelet Volume 8.2; Monocytes # (A) 0.4 k/uL (0-1.0); Monocytes % (A) 5 %; Neutrophils # (A) 5.1 k/uL (1.3-7.7); Neutrophils % (A) 63 %; Platelet Count 211 k/uL (150-450); RBC 4.26 m/uL (3.80-5.40); RDW 13.8 % (11.5-15.5); WBC 8.1 k/uL (3.8-10.6)
[2019-04-14] MEDS ORDERED: NALBUPHINE 10 MG/ML (1 ML AMP) ONE (11:48)
[2019-04-14] MEDS ORDERED: OXYTOCIN 10 UNIT/ML 1 ML VIAL ONE (11:48)
[2019-04-14] MEDS ORDERED: ONDANSETRON 4 MG/2 ML VIAL ONE (11:48)
[2019-04-14] MEDS ORDERED: KETOROLAC 30 MG/ML 1 ML VIAL ONE (11:48)
[2019-04-14] MEDS ORDERED: LACTATED RINGERS 1,000 ML BAG IV ONE (11:48)
[2019-04-14] MEDS ORDERED: MORPHINE SULFATE (PF) 0.3 MG/0.3 ML SYR ONE (11:48)
[2019-04-14] MEDS ORDERED: CELLULOSE,OXIDIZED 1 EACH EACH MISCELLANE ONE (12:20)
[2019-04-14] MEDS ORDERED: diphenhydrAMINE 25 MG CAP PO PRN (12:39)
[2019-04-14] MEDS ORDERED: ONDANSETRON 4 MG/2 ML VIAL IVP PRN (12:39)
[2019-04-14] MEDS ORDERED: METOCLOPRAMIDE 5 MG/ML 2 ML VIAL IVP PRN (12:39)
[2019-04-14] MEDS ORDERED: diphenhydrAMINE 50 MG/ML 1 ML VIAL IVP PRN ×2 (12:39)
[2019-04-14] MEDS ORDERED: ZOLPIDEM 5 MG TAB PO PRN (12:39)
[2019-04-14] MEDS ORDERED: NALOXONE 0.4 MG/ML 1 ML VIAL IV PRN (12:39)
[2019-04-14] MEDS ORDERED: ACETAMINOPHEN TAB 325 MG TAB PO PRN (12:39)
[2019-04-14] MEDS ORDERED: ACETAMINOPHEN IV (For NPO) 1,000 MG in EMPTY BAG 1 BAG IVPB ONE (12:39)
[2019-04-14] MEDS ORDERED: diphenhydrAMINE 50 MG CAP PO PRN (12:39)
--- NOTE | 2019-04-14 12:42 | P.HPOB ---
History of Present Illness H&P Date: 04/14/19 Chief Complaint: IUP @ 39 0/7 week h/p c section x 1 desires RCS This is a 23-year-old 001 at 39 0/7 weeks that presents to labor and delivery for scheduled repeat repeat . Patient has a history of C- section 1 and desires repeat. Patient denies concerns this morning she notes good movement denies contractions loss of fluid or vaginal bleeding. Brandi ent has been receiving routine care with myself and has been essentially uncomplicated. Patient's last delivery was complicated by preeclampsia which her blood pressures have been normal this time around. On bloodwork should a blood type of A+, rubella immune, hepatitis B surface antigen negative, RPR nonreactive, GBS is negative. Review of Systems Constitutional: Denies chills, Denies fatigue, Denies fever Ears, nose, mouth and throat: Denies headache Cardiovascular: Reports leg edema Respiratory: Denies dyspnea Gastrointestinal: Denies constipation, Denies diarrhea, Denies nausea, Denies vomiting Genitourinary: Reports Past Medical History Past Medical History: No Reported History Additional Past Medical History / Comment(s): , STATES HX OF PRE- ECLAMPSIA WITH PREVIOUS . History of Any Multi-Drug Resistant Organisms: None Reported Past Surgical History: Section Past Anesthesia/Blood Transfusion Reactions: No Reported Reaction Past Psychological History: No Psychological Hx Reported Smoking Status: Never smoker Past Alcohol Use History: Occasional Past Drug Use History: None Reported - Past Family History Mother Family Medical History: No Reported History Medications and Allergies Home Medications Medication Instructions Recorded Confirmed Type Prenavite Supplement 1 tab PO DAILY 04/12/19 04/14/19 History Allergies Allergy/AdvReac Type Severity Reaction Status Date / Time No Known Allergies Allergy Verified 04/12/19 13:40 Exam Osteopathic Statement: *. No significant issues noted on an osteopathic structural exam other than those noted in the History and Physical/Consult. Vital Signs Temp Pulse Resp BP Pulse Ox 04/14/19 10:28 97.8 F 94 16 116/74 96 Targeted physical exam is performed in this date in general this a well- nourished well-developed female in no acute distress, breathing is noted to be nonlabored and heart has a regular rate and rhythm, abdomen is noted to be gravid and heart tones are noted to be category 1 she is ole very irregularly, cervical exam is deferred at this time. Results Result Diagrams: 04/14/19 10:44 Assessment and Plan (1) H/O: Current Visit: Yes Status: Acute Code(s): Z98.891 - HISTORY OF UTERINE SCAR FROM PREVIOUS SURGERY SNOMED Code(s): 095901109 (2) Term Current Visit: No Status: Acute Code(s): Z34.80 - ENCOUNTER FOR SUPRVSN OF NORMAL , UNSP TRIMESTER SNOMED Code(s): 86697590 Plan: Patient is admitted to labor and delivery for planned repeat section.
[2019-04-14] MEDS ORDERED: OXYTOCIN 20 UNITS/1000 ML NS 1,000 ML IV SCH (12:45)
--- NOTE | 2019-04-14 12:50 | P.OP ---
Date of Procedure: 04/14/19 Preoperative Diagnosis: IUP at 39 0/sevenths weeks, history of 1 desires repeat. Postoperative Diagnosis: Same Procedure(s) Performed: Repeat section Anesthesia: spinal Surgeon: Chloe Boss Sand Technician #1: Trudy Gordillo Estimated Blood Loss (ml): 800 IV fluids (ml): 1,000 Urine output (ml): 200 Pathology: none sent Condition: stable Disposition: PACU Indications for Procedure: History of 1, desires repeat Operative Findings: Uterus noted to be densely adherent to the anterior abdominal wall from the level of the round ligament to mid fundus. I was unable to deliver the uterus through the hysterotomy incision secondary to dense adhesions. Male delivered at 1212, weight of 6 lbs. 12 oz. infant did have a nuchal cord 4 loosely. Infant was delivered via vacuum assist. Description of Procedure: Patient was taken back to the operating suite where spinal anesthesia was obtained without difficulty by the anesthesia department. She was prepped and draped in normal sterile fashion in the dorsal supine position. A Almeida catheter was placed prior to this. A Pfannenstiel skin incision was then made w ith the scalpel and carried through to the underlying layer of fascia. The fascia was then incised in the midline and extended laterally. The anterior aspect of the fascial incision was then grasped peggy clamps, elevated and underlying rectus muscles dissected off sharply. Attention was then turned the inferior aspect of the fascial incision which was grasped peggy clamps, elevated and underlying rectus muscle was dissected off sharply once again. Dense scar tissue was noted in the midline the peritoneum was carefully identified and entered. This was then opened further superiorly and inferiorly with good visualization the bladder. On inspection of the patient's uterus initially dense adhesions were noted from the anterior aspect of the uterus to the abdominal wall. Decision was made to not perform adhesio lysis secondary to possibility of bleeding. A bladder blade was then inserted into the abdomen and the vesicouterine peritoneum was identified and a bladder flap is created using sharp and blunt dissection. The hysterotomy incision was then made the amniotic on except was visualized amniotomy was performed clear fluid was obtained. The placenta delivered via vacuum assist without difficulty. The umbilical cord was then doubly clamped and cut and was handed off to awaiting RN. The placenta was then delivered manually and the uterus was cleared of all clots and debris. The hysterotomy incision was then closed with 0 Vicryl in a running locked fashion from one lateral edge to the other. A second suture was used to obtain hemostasis. The adhesions were visualized small amount of bleeding was noted and made hemostatic with the Bovie. Interceed was placed over the incision. Hemostasis was appreciated. All instruments removed from the patient's abdomen the fascia was then closed with 0 Vicryl in a running locked fashion from one lateral edge to the midline and the other lateral edge the midline. Subcutaneous tissue was then irrigated hemostasis was appreciated. The subcu tissue was closed with 3-0 Vicryl in a running l fashion. The skin was then closed with 4-0 Vicryl in a subcuticular fashion. Steri-Strips and sterile dressings were applied as needed. All counts were correct 2 patient tolerated procedure well, and is resting comfortably.
[2019-04-14] MEDS ORDERED: IBUPROFEN IV 800 MG in SODIUM CHLORIDE 0.9% 250 ML IV ONE (13:30)
[2019-04-14] MEDS: LACTATED RINGERS 1,000 ML IV SCH ×2 (15:27→22:24)
[2019-04-14] MEDS: SENNOSIDES-DOCUSATE SODIUM 1 EACH TAB PO SCH (20:18)
[2019-04-15] MEDS: HYDROcodone/APAP 5-325MG 1 EACH TAB PO PRN ×3 (04:27→23:42)
[2019-04-15 06:43] LABS: Basophils % (A) 0 %; Eosinophils # (A) 0.4 k/uL (0-0.7); Eosinophils % (A) 4 %; HCT 37.4 % (34.0-46.0); HGB 12.4 gm/dL (11.4-16.0); Lymphocytes # (A) 1.6 k/uL (1.0-4.8); Lymphocytes % (A) 15 %; MCH 28.9 pg (25.0-35.0); MCHC 33.1 g/dL (31.0-37.0); MCV 87.5 fL (80.0-100.0); Mean Platelet Volume 8.7; Monocytes # (A) 0.5 k/uL (0-1.0); Monocytes % (A) 5 %; Neutrophils # (A) 8.1 k/uL (1.3-7.7); Neutrophils % (A) 75 %; Platelet Count 207 k/uL (150-450); RBC 4.28 m/uL (3.80-5.40); RDW 14.8 % (11.5-15.5); WBC 10.8 k/uL (3.8-10.6)
--- NOTE | 2019-04-15 07:03 | P.PN ---
Progress Note - Text Anesthesia POD 1. Patient is status post section under spinal anesthesia with intra-thecal preservative free morphine 300 g. Moderate pruritus now resolving, excellent post-op analgesia, and no headache or other complications.
[2019-04-15] MEDS: SENNOSIDES-DOCUSATE SODIUM 1 EACH TAB PO SCH ×2 (08:03→21:27)
[2019-04-15] MEDS: IBUPROFEN 600 MG TAB PO PRN ×3 (08:03→21:27)
[2019-04-15] MEDS: LACTATED RINGERS 1,000 ML IV SCH ×2 (08:10→18:19)
--- NOTE | 2019-04-15 13:58 | P.PNOBGPC ---
Subjective - Subjective Principal diagnosis: POD 1 RCS Interval history: Patient has done well postoperatively. She is ambulating voiding without difficulty. Her pain is well-controlled. She is proceeding without difficulty she denies nausea vomiting is tolerating regular diet. Patient reports: Reports appetite normal, Reports voiding normally, Reports pain well controlled, Reports ambulating normally [place]: doing well Objective - Vital Signs Latest vital signs: Vital Signs Temp Pulse Resp BP Pulse Ox 04/15/19 12:00 98.5 F 70 16 125/68 04/15/19 08:00 98.7 F 71 18 122/69 96 04/15/19 04:00 98.1 F 73 14 124/74 96 04/15/19 00:00 98.1 F 73 14 122/72 95 04/14/19 20:00 98.2 F 97 14 137/87 96 04/14/19 16:00 97.6 F 58 L 18 118/74 04/14/19 14:39 97.6 F 57 L 16 117/77 98 04/14/19 14:09 67 16 115/79 98 Intake and Output 04/14/19 04/15/19 04/15/19 22:59 06:59 14:59 Output Total 700 650 Balance -700 -650 Output: Urine 700 650 Uretheral (Almeida) 350 Other: # Voids 1 - Exam Extremities: Present: normal, edema Abdomen: Present: normal appearance, soft Incision: Present: normal, dry, intact Uterus: Present: normal, firm - Labs Labs: Abnormal Lab Results - Last 24 Hours (Table) 04/15/19 Range/Units 06:26 WBC 10.8 H (3.8-10.6) k/uL Neutrophils # 8.1 H (1.3-7.7) k/uL Assessment and Plan (1) H/O: Current Visit: Yes Status: Acute Code(s): Z98.891 - HISTORY OF UTERINE SCAR FROM PREVIOUS SURGERY SNOMED Code(s): 057899891 (2) Term Current Visit: No Status: Acute Code(s): Z34.80 - ENCOUNTER FOR SUPRVSN OF NORMAL , UNSP TRIMESTER SNOMED Code(s): 93940943 (3) Status post vaginal delivery Current Visit: Yes Status: Acute Code(s): MFQ1340 - SNOMED Code(s): 062719647 Plan: We'll continue routine post operative care
[2019-04-15] MEDS: PRENATAL VIT-IRON-FOLIC ACID 1 EACH CAP PO SCH (15:50)
[2019-04-16] MEDS: IBUPROFEN 600 MG TAB PO PRN (03:36)
[2019-04-16] MEDS: SENNOSIDES-DOCUSATE SODIUM 1 EACH TAB PO SCH (08:00)
[2019-04-16] MEDS: HYDROcodone/APAP 5-325MG 1 EACH TAB PO PRN (08:36)
[2019-04-16 09:25] VITALS: BP 122/75; PULSE 67; RESP 18; TEMP 97.8
--- NOTE | 2019-04-16 09:35 | P.DS ---
Providers Date of admission: 04/14/19 10:07 Expected date of discharge: 04/16/19 Attending physician: Chloe Boss Primary care physician: Stated None - Discharge Diagnosis(es) (1) H/O: Current Visit: Yes Status: Acute (2) Term Current Visit: No Status: Acute (3) Status post vaginal delivery Current Visit: Yes Status: Acute Hospital Course: This is a 23-year-old 2 para 1001 at 39 0/7 weeks that presented to labor and delivery for scheduled repeat section. Patient had a prior and desired repeat. Patient was taken back to the operating suite spinal anesthesia was obtained was performed without difficulty. Patient delivered a viable male at 1212, weight of 6 lbs. 12 oz. via vacuum assist, patient and infant did have a loose nuchal cord 4. Patient was noted to have dense uterine incisions from the anterior aspect of the uterus to the anterior abdominal wall. Patient is aware of these findings. Patient's postoperative course has been uneventful. On this postop day #2 she is ambulating and voiding without difficulty. She is tolerating a regular diet without nausea or vomiting. She does wish discharge home later today. Patient Condition at Discharge: Good Plan - Discharge Summary Discharge Rx Participant: Yes New Discharge Prescriptions: No Action Prenavite Supplement 1 tab PO DAILY Discharge Medication List Prenavite Supplement 1 tab PO DAILY 04/12/19 [History] Follow up Appointment(s)/Referral(s): Chloe Boss DO [Doctor of Osteopathic Medicine] - 2 Weeks Patient Instructions/Handouts: (DC), (GEN) Discharge Disposition: HOME SELF-CARE
[2019-04-16] MEDS: PRENATAL VIT-IRON-FOLIC ACID 1 EACH CAP PO SCH (15:00)
== END 2019-04-16 14:25 | disposition home or self-care (01) | DRG 788 ==
LOC: 4FBP 10:07
PROVIDERS: ADMIT Obstetrics & Gynecology Obstetrics; ATTEND Obstetrics & Gynecology Obstetrics
PROC: 10D00Z1 Extraction of Products of Conception, Low, Open Approach (ICD-10-PCS; principal; 2019-04-14 12:02)
DX: O34.211 Maternal care for low transverse scar from previous cesarean delivery (principal); O69.81X0 Labor and delivery complicated by cord around neck, without compression, not applicable or unspecified; Z37.0 Single live birth; Z3A.39 39 weeks gestation of pregnancy
CPT/HCPCS: 85025; 86850; 86900; 86901

== ENCOUNTER 2019-06-25 20:54 | Inpatient (IN) | payer BC ==
[2019-06-25] MEDS ORDERED: SODIUM CHLORIDE 0.9% 1,000 ML IV STA (21:18)
--- NOTE | 2019-06-25 22:11 | US ---
EXAMINATION TYPE: US abdomen limited DATE OF EXAM: 06/25/2019 COMPARISON: NONE CLINICAL HISTORY: RUQ/epigastric pa in. EXAM MEASUREMENTS: Liver Length: 11.9 cm Gallbladder Wall: 0.6 cm CBD: 0.5 cm Right Kidney: 11.1 x 4.6 x 5.2 cm Pancreas: visualized portions wnl Liver: wnl Gallbladder: thickened wall with small amount of fluid, multiple mobile stones/sludge. Evidence for sonographic Ibanez's sign: No CBD: measures 0.5 cm Right Kidney: No hydronephrosis or masses seen IMPRESSION: There is echogenic bile and gallstones. No dilated ducts.
[2019-06-25 22:17] LABS: Basophils % (A) 0 %; Eosinophils # (A) 0.2 k/uL (0-0.7); Eosinophils % (A) 2 %; HCT 41.6 % (34.0-46.0); HGB 14.2 gm/dL (11.4-16.0); Lymphocytes # (A) 1.2 k/uL (1.0-4.8); Lymphocytes % (A) 13 %; MCH 29.2 pg (25.0-35.0); MCHC 34.2 g/dL (31.0-37.0); MCV 85.4 fL (80.0-100.0); Mean Platelet Volume 7.4; Monocytes # (A) 0.3 k/uL (0-1.0); Monocytes % (A) 3 %; Neutrophils # (A) 7.4 k/uL (1.3-7.7); Neutrophils % (A) 80 %; Platelet Count 256 k/uL (150-450); RBC 4.87 m/uL (3.80-5.40); RDW 12.6 % (11.5-15.5); WBC 9.2 k/uL (3.8-10.6)
[2019-06-25 22:22] LABS: ALT 190 U/L (9-52); AST 287 U/L (14-36); African American GFR (CKD) >90 (>60 ml/min/1.73 sqM); Albumin 4.6 g/dL (3.5-5.0); Alkaline Phosphatase 131 U/L (38-126); Anion Gap 11 mmol/L; Blood Urea Nitrogen 25 mg/dL (7-17); Calcium 9.8 mg/dL (8.4-10.2); Carbon Dioxide 24 mmol/L (22-30); Chloride 106 mmol/L (98-107); Glucose 161 mg/dL (74-99); Potassium 3.9 mmol/L (3.5-5.1); Sodium 141 mmol/L (137-145); Total Bilirubin 0.7 mg/dL (0.2-1.3); Total Protein 7.9 g/dL (6.3-8.2)
--- NOTE | 2019-06-25 22:26 | ED ---
Abdominal Pain HPI - General Chief Complaint: Abdominal Pain Stated Complaint: Abd pain Source: patient Mode of arrival: ambulatory Limitations: no limitations - History of Present Illness Initial Comments: 23-year-old year BREAST FEEDING female presented emergency department for chief complaint of epigastric pain radiating to the back. Patient states that during her she had some right upper quadrant epigastric pain that radiated to the back. She states is pretty consistent however subsided and has returned for the past few days. Patient states she is unable to tolerate the pain who presents to the ER for evaluation to his concern is her gallbladder. Denies fevers vomiting diarrhea. Patient denies any other complaints denies chest pain shortness of breath remaining review of systems negative upon arrival patient appears well signs of acute distress. Resting comfortably. Vital signs stable - Related Data Home Medications Medication Instructions Recorded Confirmed No Known Home Medications 06/25/19 06/25/19 Allergies Allergy/AdvReac Type Severity Reaction Status Date / Time No Known Allergies Allergy Verified 06/25/19 23:26 Review of Systems ROS Statement: Those systems with pertinent positive or pertinent negative responses have been documented in the HPI. ROS Other: All systems not noted in ROS Statement are negative. Past Medical History Past Medical History: No Reported History Additional Past Medical History / Comment(s): , STATES HX OF PRE- ECLAMPSIA WITH PREVIOUS . History of Any Multi-Drug Resistant Organisms: None Reported Past Surgical History: Section Past Anesthesia/Blood Transfusion Reactions: No Reported Reaction Past Psychological History: No Psychological Hx Reported Smoking Status: Never smoker Past Alcohol Use History: Rare Past Drug Use History: None Reported - Past Family History Mother Family Medical History: No Reported History General Exam - General Exam Comments Initial Comments: General: The patient is awake and alert, in no distress Eye: +3 mm pupils are equal, round and reactive to light, extra-ocular movements are intact. No nystagmus. There is normal conjunctiva bilaterally. No signs of icterus. Ears, nose, mouth and throat: There are moist mucous membranes and no oral lesions. Neck: The neck is supple, there is no tenderness or JVD. Cardiovascular: There is a regular rate and rhythm. No murmur, rub or gallop is appreciated. Respiratory: Lungs are clear to auscultation, respirations are non-labored, breath sounds are equal. No wheezes, stridor, rales, or rhonchi. Gastrointestinal: Soft, non-distended, abdomen tender to palpation of the epigastric region, without masses or organomegaly noted. There is no rebound, but guarding present.. No CVA tenderness. Bowel sounds are unremarkable. Musculoskeletal: Normal ROM, no tenderness. Strength 5/5. Sensation intact. Radial pulses equal bilaterally 2+. Neurological: A&O x 3. CN II-XII intact grossly, There are no obvious motor or sensory deficits. Coordination appears grossly intact. Speech is normal. Skin: Skin is warm and dry and no rashes or lesions are noted. Psychiatric: Cooperative, appropriate mood & affect, normal judgment. Limitations: no limitations Course Vital Signs 06/25/19 06/25/19 21:01 23:22 Temperature 98.4 F 98.1 F Pulse Rate 92 91 Respiratory 18 16 Rate Blood Pressure 130/82 135/89 O2 Sat by Pulse 97 98 Oximetry Medical Decision Making - Medical Decision Making 23-year-old female presenting for epigastric pain. Elevated lipase. Gallstones on ultrasound. Concerning for gallstone-induced pancreatitis. Patient ordered nothing by mouth. Given IV fluids. Agreeable with admission. Patient is and currently breast-feeding. Refuses pain medication secondary to breast feedings. I discussed at length the risk of certain IV analgesics/medications that may be given with breast-feeding and that she would need to have complete cessation of breast feeding if medications are contraindicated with breast feeding. She verbalized understanding. Case discussed with Dr. Stoner who is agreeable with care plan and admission. - Lab Data Result diagrams: 06/25/19 21:50 06/25/19 21:50 Lab Results 06/25/19 06/25/19 06/25/19 Range/Units 21:45 21:45 21:50 WBC (3.8-10.6) k/uL RBC (3.80-5.40) m/uL Hgb (11.4-16.0) gm/dL Hct (34.0-46.0) % MCV (80.0-100.0) fL MCH (25.0-35.0) pg MCHC (31.0-37.0) g/dL RDW (11.5-15.5) % Plt Count (150-450) k/uL Neutrophils % % Lymphocytes % % Monocytes % % Eosinophils % % Basophils % % Neutrophils # (1.3-7.7) k/uL Lymphocytes # (1.0-4.8) k/uL Monocytes # (0-1.0) k/uL Eosinophils # (0-0.7) k/uL Basophils # (0-0.2) k/uL Sodium 141 (137-145) mmol/L Potassium 3.9 (3.5-5.1) mmol/L Chloride 106 (98-107) mmol/L Carbon Dioxide 24 (22-30) mmol/L Anion Gap 11 mmol/L BUN 25 H (7-17) mg/dL Creatinine 0.67 (0.52-1.04) mg/dL Est GFR (CKD-EPI)AfAm >90 (>60 ml/min/1.73 sqM) Est GFR (CKD-EPI)NonAf >90 (>60 ml/min/1.73 sqM) Glucose 161 H (74-99) mg/dL Calcium 9.8 (8.4-10.2) mg/dL Total Bilirubin 0.7 (0.2-1.3) mg/dL AST 287 H (14-36) U/L ALT 190 H (9-52) U/L Alkaline Phosphatase 131 H (38-126) U/L Total Protein 7.9 (6.3-8.2) g/dL Albumin 4.6 (3.5-5.0) g/dL Amylase 582 H* (30-110) U/L Lipase 84687 H (23-300) U/L Urine Color Yellow Urine Appearance Cloudy H (Clear) Urine pH 7.0 (5.0-8.0) Ur Specific Tensed 1.032 (1.001-1.035) Urine Protein 1+ H (Negative) Urine Glucose (UA) Negative (Negative) Urine Ketones Trace H (Negative) Urine Blood Negative (Negative) Urine Nitrite Negative (Negative) Urine Bilirubin Negative (Negative) Urine Urobilinogen <2.0 (<2.0) mg/dL Ur Leukocyte Esterase Small H (Negative) Urine RBC 6 H (0-5) /hpf Urine WBC 7 H (0-5) /hpf Ur Squamous Epith Cells 7 H (0-4) /hpf Urine Mucus Few H (None) /hpf Urine HCG, Qual Not Detected (Not Detectd) 06/25/19 Range/Units 21:50 WBC 9.2 (3.8-10.6) k/uL RBC 4.87 (3.80-5.40) m/uL Hgb 14.2 (11.4-16.0) gm/dL Hct 41.6 (34.0-46.0) % MCV 85.4 (80.0-100.0) fL MCH 29.2 (25.0-35.0) pg MCHC 34.2 (31.0-37.0) g/dL RDW 12.6 (11.5-15.5) % Plt Count 256 (150-450) k/uL Neutrophils % 80 % Lymphocytes % 13 % Monocytes % 3 % Eosinophils % 2 % Basophils % 0 % Neutrophils # 7.4 (1.3-7.7) k/uL Lymphocytes # 1.2 (1.0-4.8) k/uL Monocytes # 0.3 (0-1.0) k/uL Eosinophils # 0.2 (0-0.7) k/uL Basophils # 0.0 (0-0.2) k/uL Sodium (137-145) mmol/L Potassium (3.5-5.1) mmol/L Chloride (98-107) mmol/L Carbon Dioxide (22-30) mmol/L Anion Gap mmol/L BUN (7-17) mg/dL Creatinine (0.52-1.04) mg/dL Est GFR (CKD-EPI)AfAm (>60 ml/min/1.73 sqM) Est GFR (CKD-EPI)NonAf (>60 ml/min/1.73 sqM) Glucose (74-99) mg/dL Calcium (8.4-10.2) mg/dL Total Bilirubin (0.2-1.3) mg/dL AST (14-36) U/L ALT (9-52) U/L Alkaline Phosphatase (38-126) U/L Total Protein (6.3-8.2) g/dL Albumin (3.5-5.0) g/dL Amylase (30-110) U/L Lipase (23-300) U/L Urine Color Urine Appearance (Clear) Urine pH (5.0-8.0) Ur Specific Tensed (1.001-1.035) Urine Protein (Negative) Urine Glucose (UA) (Negative) Urine Ketones (Negative) Urine Blood (Negative) Urine Nitrite (Negative) Urine Bilirubin (Negative) Urine Urobilinogen (<2.0) mg/dL Ur Leukocyte Esterase (Negative) Urine RBC (0-5) /hpf Urine WBC (0-5) /hpf Ur Squamous Epith Cells (0-4) /hpf Urine Mucus (None) /hpf Urine HCG, Qual (Not Detectd) Disposition Clinical Impression: Gallstones, Pancreatitis Disposition: ADMITTED IP TO THIS [facility] Condition: Stable Is patient prescribed a controlled substance at d/c from ED?: No Decision to Admit Reason: Admit from EC Decision Date: 06/25/19 Decision Time: 23:09
[2019-06-25 22:36] LABS: Appearance,Urine Cloudy (Clear); Bilirubin,Urine Negative (Negative); Blood,Urine Negative (Negative); Color,Urine Yellow; Glucose,Urine (UA) Negative (Negative); Ketones,Urine Trace (Negative); Leukocyte Esterase,Urine Small (Negative); Mucus,Urine Few /hpf; Nitrite,Urine Negative (Negative); Protein,Urine 1+ (Negative); RBC,Urine 6 /hpf (0-5); Specific Gravity,Urine 1.032 (1.001-1.035); Squamous Epithelial Cell,Urine 7 /hpf (0-4); Urobilinogen,Urine <2.0 mg/dL (<2.0); WBC,Urine 7 /hpf (0-5)
[2019-06-25] MEDS ORDERED: SODIUM CHLORIDE 0.9% 1,000 ML IV ONE (23:01)
[2019-06-25] MEDS ORDERED: MORPHINE SULFATE 4 MG/ML SYRINGE IVP STA (23:08)
[2019-06-25 23:09] LABS: Amylase 582 U/L (30-110)
[2019-06-25] MEDS ORDERED: NALOXONE 0.4 MG/ML 1 ML VIAL IV PRN (23:11)
[2019-06-25] MEDS ORDERED: MORPHINE SULFATE 4 MG/ML SYRINGE IVP PRN (23:58)
[2019-06-26] MEDS: SODIUM CHLORIDE 0.9% 1,000 ML IV SCH ×4 (01:14→20:05)
[2019-06-26 07:51] LABS: ALT 574 U/L (9-52); AST 643 U/L (14-36); African American GFR (CKD) >90 (>60 ml/min/1.73 sqM); Albumin 3.5 g/dL (3.5-5.0); Alkaline Phosphatase 122 U/L (38-126); Amylase 113 U/L (30-110); Anion Gap 4 mmol/L; Blood Urea Nitrogen 19 mg/dL (7-17); Calcium 8.5 mg/dL (8.4-10.2); Carbon Dioxide 25 mmol/L (22-30); Chloride 114 mmol/L (98-107); Glucose 77 mg/dL (74-99); Potassium 4.4 mmol/L (3.5-5.1); Sodium 143 mmol/L (137-145); Total Bilirubin 0.6 mg/dL (0.2-1.3); Total Protein 6.3 g/dL (6.3-8.2)
[2019-06-26] MEDS: PANTOPRAZOLE 40 MG/10 ML VIAL IVP SCH (12:40)
--- NOTE | 2019-06-26 13:18 | P.HPIM ---
History of Present Illness Patient is a pleasant 23-year-old female came in with comments of epigastric abdominal burning sensation severe pain. Patient is found to have cholelithiasis patient appears to cortical gases as well. Patient had an ultrasound of the abdomen which showed echogenic bile with gallstones no dilated bile ducts. Common bile duct is 0.5 cm. Although patient liver enzymes are elevated higher than yesterday he attained patient's the lipase is elevated to 10,004 7 and came down to sounds and patient is hungry patient's abdominal pain is better probably can be resumed on diet regarding the pancreatitis patient appears to have gallstone pancreatitis denied any significant history of alcoholism. Patient appears to have cholelithiasis and choledocholithiasis patient's Ibanez's sign is negative patient is an any fever and leukocytosis doesn't appear to have cholecystitis. Patient also denied any nausea vomiting. Review of Systems REVIEW OF SYSTEMS: CONSTITUTIONAL: No fever, no malaise, no fatigue. HEENT: No recent visual problems or hearing problems. Denied any sore throat. CARDIOVASCULAR: No chest pain, orthopnea, PND, no palpitations, no syncope. PULMONARY: No shortness of breath, no cough, no hemoptysis. GASTROINTESTINAL: No diarrhea, no nausea, no vomiting, NEUROLOGICAL: No headaches, no weakness, no numbness. HEMATOLOGICAL: Denies any bleeding or petechiae. GENITOURINARY: Denies any burning micturition, frequency, or urgency. MUSCULOSKELETAL/RHEUMATOLOGICAL: Denies any joint pain, swelling, or any muscle pain. ENDOCRINE: Denies any polyuria or polydipsia. The rest of the 14-point review of systems is negative. Past Medical History Past Medical History: No Reported History Additional Past Medical History / Comment(s): STATES HX OF PRE-ECLAMPSIA WITH PREVIOUS . Currently Breast Feeding History of Any Multi-Drug Resistant Organisms: None Reported Past Surgical History: Section Past Anesthesia/Blood Transfusion Reactions: No Reported Reaction Past Psychological History: No Psychological Hx Reported Smoking Status: Never smoker Past Alcohol Use History: Rare Past Drug Use History: None Reported - Past Family History Mother Family Medical History: No Reported History Medications and Allergies Home Medications Medication Instructions Recorded Confirmed Type No Known Home Medications 06/25/19 06/25/19 History Allergies Allergy/AdvReac Type Severity Reaction Status Date / Time No Known Allergies Allergy Verified 06/25/19 23:26 Physical Exam Vitals: Vital Signs Temp Pulse Pulse Resp BP BP Pulse Ox 06/26/19 07:00 97.8 F 72 16 118/72 93 L 06/26/19 00:00 97.9 F 87 16 126/74 99 06/25/19 23:22 98.1 F 91 16 135/89 98 06/25/19 21:01 98.4 F 92 18 130/82 97 Intake and Output 06/25/19 06/26/19 06/26/19 22:59 06:59 14:59 Intake Total 1200 Balance 1200 Intake: Amount of Fluid Infused ( 1200 ml) Other: # Voids 2 Weight 72.575 kg PHYSICAL EXAMINATION: GENERAL: The patient is alert and oriented x3, not in any acute distress. Well developed, well nourished. HEENT: Pupils are round and equally reacting to light. EOMI. No scleral icterus. No conjunctival pallor. Normocephalic, atraumatic. No pharyngeal erythema. No thyromegaly. CARDIOVASCULAR: S1 and S2 present. No murmurs, rubs, or gallops. PULMONARY: Chest is clear to auscultation, no wheezing or crackles. ABDOMEN: Soft, nondistended, normoactive bowel sounds. No palpable organomegaly. MUSCULOSKELETAL: No joint swelling or deformity. EXTREMITIES: No cyanosis, clubbing, or pedal edema. NEUROLOGICAL: Gross neurological examination did not reveal any focal deficits. SKIN: No rashes. Results CBC & Chem 7: 06/25/19 21:50 06/26/19 07:13 Labs: Abnormal Lab Results - Last 24 Hours (Table) 06/25/19 06/25/19 06/26/19 Range/Units 21:45 21:50 07:13 Chloride 114 H (98-107) mmol/L BUN 25 H 19 H (7-17) mg/dL Glucose 161 H (74-99) mg/dL AST 287 H 643 H (14-36) U/L ALT 190 H 574 H (9-52) U/L Alkaline Phosphatase 131 H (38-126) U/L Amylase 582 H* 113 H (30-110) U/L Lipase 82218 H 775 H (23-300) U/L Urine Appearance Cloudy H (Clear) Urine Protein 1+ H (Negative) Urine Ketones Trace H (Negative) Ur Leukocyte Esterase Small H (Negative) Urine RBC 6 H (0-5) /hpf Urine WBC 7 H (0-5) /hpf Ur Squamous Epith Cells 7 H (0-4) /hpf Urine Mucus Few H (None) /hpf Thrombosis Risk Factor Assmnt - Choose All That Apply Any of the Below Risk Factors Present?: No Other Risk Factors: No Other congenital or acquired thrombophilia - If yes, enter type in comment: No Thrombosis Risk Factor Assessment Level: Very Low Risk Assessment and Plan Plan: -t gallstone pancreatitis: Improving at this time, patient is presently nothing by mouth probably will start on diet patient's abdominal pain improved patient lipase has come down patient is not nauseous and hungry. If patient will undergo MRCP will start her on diet after MRCP. Discussed with the gastro neurology. Patient is and breast-feeding -Elevated liver enzymes without any evidence of bile duct stone this probably related to pass stone we'll repeat the liver enzymes again tomorrow. -Cholelithiasis without any clinical evidence of cholecystitis: General surgery was consulted for possible cholecystectomy during this hospitalization -DVT prophylaxis early ambulation
--- NOTE | 2019-06-26 15:18 | P.GSCN ---
History of Present Illness Consult date: 06/26/19 History of present illness: Patient comes in with history of initial epigastric abdominal pain. She also had gone to the ER where blood work demonstrated moderately elevated liver enzymes including elevated lipase consistent with gallstone pancreatitis per ultrasound. Today, she reports no abdominal pain. She is 2 weeks . She is currently breast-feeding. She has been nothing by mouth. She has been seen by gastroenterology team. She reports no prior workup for gallstone disease other than having intermittent right upper quadrant abdominal pain yaima cks during her . Gen. surgery's consult for gallstone pancreatitis. ABDOMEN: soft, nontender, nondistended. LABS: Reviewed were markedly elevated ALT and AST and alkaline phosphatase tren ding upwards. Total bilirubin completely normal. STUDIES: Ultrasound of the abdomen reviewed with thickened gallbladder wall over 5 mm including multiple gallstones consistent with cholecystitis ASSESSMENT: 1. Gallstones pancreatitis PLAN: 1. Agree with workup with GI including possibility of MRCP. 2. Discussion of inpatient cholecystectomy also described versus outpatient and she is a 2-month-old at home. Patient opted for inpatient cholecystectomy. Past Medical History Past Medical History: No Reported History Additional Past Medical History / Comment(s): STATES HX OF PRE-ECLAMPSIA WITH PREVIOUS . Currently Breast Feeding History of Any Multi-Drug Resistant Organisms: None Reported Past Surgical History: Section Past Anesthesia/Blood Transfusion Reactions: No Reported Reaction Past Psychological History: No Psychological Hx Reported Smoking Status: Never smoker Past Alcohol Use History: Rare Past Drug Use History: None Reported - Past Family History Mother Family Medical History: No Reported History Medications and Allergies Home Medications Medication Instructions Recorded Confirmed Type No Known Home Medications 06/25/19 06/25/19 History Allergies Allergy/AdvReac Type Severity Reaction Status Date / Time No Known Allergies Allergy Verified 06/25/19 23:26 Surgical - Exam Vital Signs Temp Pulse Resp BP Pulse Ox 98.4 F 92 18 130/82 97 06/25/19 21:01 06/25/19 21:01 06/25/19 21:01 06/25/19 21:01 06/25/19 21:01 Results - Labs 06/25/19 21:50 06/26/19 07:13 Abnormal Lab Results - Last 24 Hours (Table) 06/25/19 06/25/19 06/26/19 Range/Units 21:45 21:50 07:13 Chloride 114 H (98-107) mmol/L BUN 25 H 19 H (7-17) mg/dL Glucose 161 H (74-99) mg/dL AST 287 H 643 H (14-36) U/L ALT 190 H 574 H (9-52) U/L Alkaline Phosphatase 131 H (38-126) U/L Amylase 582 H* 113 H (30-110) U/L Lipase 90460 H 775 H (23-300) U/L Urine Appearance Cloudy H (Clear) Urine Protein 1+ H (Negative) Urine Ketones Trace H (Negative) Ur Leukocyte Esterase Small H (Negative) Urine RBC 6 H (0-5) /hpf Urine WBC 7 H (0-5) /hpf Ur Squamous Epith Cells 7 H (0-4) /hpf Urine Mucus Few H (None) /hpf Diabetes panel 06/25/19 06/26/19 06/26/19 Range/Units 21:50 07:13 07:13 Sodium 141 143 (137-145) mmol/L Potassium 3.9 4.4 (3.5-5.1) mmol/L Chloride 106 114 H (98-107) mmol/L Carbon Dioxide 24 25 (22-30) mmol/L BUN 25 H 19 H (7-17) mg/dL Creatinine 0.67 0.63 (0.52-1.04) mg/dL Glucose 161 H 77 (74-99) mg/dL Calcium 9.8 8.5 (8.4-10.2) mg/dL AST 287 H 643 H (14-36) U/L ALT 190 H 574 H (9-52) U/L Alkaline Phosphatase 131 H 122 (38-126) U/L Total Protein 7.9 6.3 (6.3-8.2) g/dL Albumin 4.6 3.5 (3.5-5.0) g/dL Triglycerides 61 (<150) mg/dL Calcium panel 06/25/19 06/26/19 Range/Units 21:50 07:13 Calcium 9.8 8.5 (8.4-10.2) mg/dL Albumin 4.6 3.5 (3.5-5.0) g/dL Pituitary panel 06/25/19 06/26/19 Range/Units 21:50 07:13 Sodium 141 143 (137-145) mmol/L Potassium 3.9 4.4 (3.5-5.1) mmol/L Chloride 106 114 H (98-107) mmol/L Carbon Dioxide 24 25 (22-30) mmol/L BUN 25 H 19 H (7-17) mg/dL Creatinine 0.67 0.63 (0.52-1.04) mg/dL Glucose 161 H 77 (74-99) mg/dL Calcium 9.8 8.5 (8.4-10.2) mg/dL Adrenal panel 06/25/19 06/26/19 Range/Units 21:50 07:13 Sodium 141 143 (137-145) mmol/L Potassium 3.9 4.4 (3.5-5.1) mmol/L Chloride 106 114 H (98-107) mmol/L Carbon Dioxide 24 25 (22-30) mmol/L BUN 25 H 19 H (7-17) mg/dL Creatinine 0.67 0.63 (0.52-1.04) mg/dL Glucose 161 H 77 (74-99) mg/dL Calcium 9.8 8.5 (8.4-10.2) mg/dL Total Bilirubin 0.7 0.6 (0.2-1.3) mg/dL AST 287 H 643 H (14-36) U/L ALT 190 H 574 H (9-52) U/L Alkaline Phosphatase 131 H 122 (38-126) U/L Total Protein 7.9 6.3 (6.3-8.2) g/dL Albumin 4.6 3.5 (3.5-5.0) g/dL
--- NOTE | 2019-06-26 18:00 | P.CONS ---
History of Present Illness - Reason for Consult Consult date: 06/26/19 Choledocholithiasis Requesting physician: Terence Winchester - Chief Complaint Abdominal pain - History of Present Illness 23-year-old female who presented to the hospital for evaluation of abdominal pain. The patient reports similar episodes of pain during her which had improved . She reports that the pain recurred prior to presentation and was constant, sharp and burning in the epigastric and right upper quadrant region of her abdomen. The pain was severe and she presented to the hospital for further evaluation. She denies any fevers chills or other symptoms. She did report some associated nausea without vomiting. The patient had an ultrasound performed which was significant for gallstones without any evidence of dilated bile ducts. Liver enzymes were found to be elevated with total bilirubin 0.6, alkaline phosphatase 122, AST 643 and ALTs 574 with a WBC 10.2, hemoglobin 14.2, platelet count 256,000 and INR of 0.9, and an amylase of 582 and a lipase of 10,479. Review of Systems On physical examination, patient appears comfortable in no apparent distress. HEAD: Normocephalic, atraumatic. EYES: No scleral icterus. No conjunctival injection. MOUTH: No lesions, tongue midline. NECK: Trachea midline, no gross abnormalities. CHEST: Clear to auscultation with no wheezing or rhonchi appreciated. HEART: Regular rate and rhythm. ABDOMEN: Soft, obese. Bowel sounds are positive. No organomegaly. No guarding or rigidity. EXTREMITIES: No pedal edema. SKIN: No rashes, no jaundice. NEUROLOGIC: Alert and oriented x3. No focal deficits. Past Medical History Past Medical History: No Reported History Additional Past Medical History / Comment(s): STATES HX OF PRE-ECLAMPSIA WITH PREVIOUS . Currently Breast Feeding History of Any Multi-Drug Resistant Organisms: None Reported Past Surgical History: Section Past Anesthesia/Blood Transfusion Reactions: No Reported Reaction Past Psychological History: No Psychological Hx Reported Smoking Status: Never smoker Past Alcohol Use History: Rare Past Drug Use History: None Reported - Past Family History Mother Family Medical History: No Reported History Medications and Allergies Home Medications Medication Instructions Recorded Confirmed Type No Known Home Medications 06/25/19 06/25/19 History Allergies Allergy/AdvReac Type Severity Reaction Status Date / Time No Known Allergies Allergy Verified 06/25/19 23:26 Physical Exam Vitals: Vital Signs Temp Pulse Pulse Resp BP BP Pulse Ox 06/26/19 07:00 97.8 F 72 16 118/72 93 L 06/26/19 00:00 97.9 F 87 16 126/74 99 06/25/19 23:22 98.1 F 91 16 135/89 98 06/25/19 21:01 98.4 F 92 18 130/82 97 Intake and Output 06/25/19 06/26/19 06/26/19 22:59 06:59 14:59 Intake Total 1200 Balance 1200 Intake: Amount of Fluid Infused ( 1200 ml) Other: # Voids 2 Weight 72.575 kg On physical examination, patient appears comfortable in no apparent distress. HEAD: Normocephalic, atraumatic. EYES: No scleral icterus. No conjunctival injection. MOUTH: No lesions, tongue midline. NECK: Trachea midline, no gross abnormalities. CHEST: Clear to auscultation with no wheezing or rhonchi appreciated. HEART: Regular rate and rhythm. ABDOMEN: Soft, obese. Bowel sounds are positive. No organomegaly. No guarding or rigidity. EXTREMITIES: No pedal edema. SKIN: No rashes, no jaundice. NEUROLOGIC: Alert and oriented x3. No focal deficits. Results CBC & Chem 7: 06/25/19 21:50 06/26/19 07:13 Labs: Abnormal Lab Results - Last 24 Hours (Table) 06/25/19 06/25/19 06/26/19 Range/Units 21:45 21:50 07:13 Chloride 114 H (98-107) mmol/L BUN 25 H 19 H (7-17) mg/dL Glucose 161 H (74-99) mg/dL AST 287 H 643 H (14-36) U/L ALT 190 H 574 H (9-52) U/L Alkaline Phosphatase 131 H (38-126) U/L Amylase 582 H* 113 H (30-110) U/L Lipase 56506 H 775 H (23-300) U/L Urine Appearance Cloudy H (Clear) Urine Protein 1+ H (Negative) Urine Ketones Trace H (Negative) Ur Leukocyte Esterase Small H (Negative) Urine RBC 6 H (0-5) /hpf Urine WBC 7 H (0-5) /hpf Ur Squamous Epith Cells 7 H (0-4) /hpf Urine Mucus Few H (None) /hpf US - abdomen: report reviewed (Ultrasound of the abdomen significant for echogenic bile and gallstones with no ductal dilation.) Assessment and Plan (1) Pancreatitis Narrative/Plan: 23-year-old female presenting with reports of abdominal pain found to have e levation of lipase at 10,479 and amylase of 582 with evidence of gallstones and echogenicity in the gallbladder without evidence of biliary dilation or a cholestatic pattern of liver enzymes. Suspicion is for gallstone pancreatitis. Unclear if the patient has a retained stone in the biliary tree or that this is secondary to a gallstone which was passed through the bile duct. MRCP is pending at this time. Pain is improved and the patient would like to start a liquid diet. Current Visit: Yes Status: Acute Code(s): K85.90 - ACUTE PANCREATITIS WITHOUT NECROSIS OR INFECTION, UNSP SNOMED Code(s): 54273379 (2) Abdominal pain Current Visit: Yes Status: Acute Code(s): R10.9 - UNSPECIFIED ABDOMINAL PAIN SNOMED Code(s): 22486096 (3) Gallstones Current Visit: Yes Status: Acute Code(s): K80.20 - CALCULUS OF GALLBLADDER W/O CHOLECYSTITIS W/O OBSTRUCTION SNOMED Code(s): 068677654 Plan: Supportive care Okay for clear liquid diet Triglycerides, NASRIN and IgG4 ordered Ultrasound abdomen reviewed MRCP ordered No plans for ERCP at this time, will await findings from MRCP Appreciate recommendations from surgical service, with plan for cholecystectomy prior to discharge per their note Thank you for allowing us to participate in the care of this patient we will continue to follow
[2019-06-27] MEDS: SODIUM CHLORIDE 0.9% 1,000 ML IV SCH ×2 (05:36→16:37)
[2019-06-27] MEDS: PANTOPRAZOLE 40 MG/10 ML VIAL IVP SCH (07:28)
[2019-06-27 08:39] LABS: ALT 382 U/L (9-52); AST 161 U/L (14-36); African American GFR (CKD) >90 (>60 ml/min/1.73 sqM); Albumin 3.4 g/dL (3.5-5.0); Alkaline Phosphatase 115 U/L (38-126); Anion Gap 6 mmol/L; Blood Urea Nitrogen 7 mg/dL (7-17); Calcium 8.8 mg/dL (8.4-10.2); Carbon Dioxide 25 mmol/L (22-30); Chloride 111 mmol/L (98-107); Glucose 73 mg/dL (74-99); Potassium 4.3 mmol/L (3.5-5.1); Sodium 142 mmol/L (137-145); Total Bilirubin 0.5 mg/dL (0.2-1.3); Total Protein 6.2 g/dL (6.3-8.2)
--- NOTE | 2019-06-27 10:56 | P.PN ---
Subjective Progress Note Date: 06/27/19 This is a 23-year-old female with gallstone pancreatitis.NPO, awaiting MRCP today. Denies abdominal pain. Tolerated popsicle at dinner last night with no nausea, vomiting or diarrhea. Denies chest pain, palpitations or shortness of breath. Lipase trending down to 775. T bili 0.5, LFTs trending down, AST 161, ALT 382 and alk phos 1:15 Maintained on IV fluid hydration. Afebrile. Objective - Vital Signs Vital signs: Vital Signs Temp 97.8 F 06/27/19 07:18 Pulse 66 06/27/19 07:18 Resp 16 06/27/19 07:18 BP 113/71 06/27/19 07:18 Pulse Ox 98 06/27/19 07:18 Intake & Output 06/26/19 06/27/19 06/27/19 18:59 06:59 18:59 Intake Total 1200 Balance 1200 Intake: IV 1200 Sodium Chloride 0.9% 1, 1200 000 ml @ 100 mls/hr IV . Q10H LOW[facility] Rx#:[id number] Other: Voiding Method Toilet # Voids 2 1 - Exam GENERAL:Sitting up in bed, alert and oriented x3, no acute distress. HEENT: Pupils are round and equally reacting to light. EOMI. No scleral icterus. No conjunctival pallor. Normocephalic, atraumatic. No pharyngeal erythema. No thyromegaly. CARDIOVASCULAR: S1 and S2 present. No murmurs, rubs, or gallops. PULMONARY: Chest is clear to auscultation, no wheezing or crackles. ABDOMEN: Soft, nondistended, nontender, normoactive bowel sounds. No palpable organomegaly. MUSCULOSKELETAL: No joint swelling or deformity. EXTREMITIES: No cyanosis, clubbing, or pedal edema. NEUROLOGICAL: Gross neurological examination did not reveal any focal deficits. SKIN: No rashes. - Labs CBC & Chem 7: 06/25/19 21:50 06/27/19 07:22 Labs: Abnormal Lab Results - Last 24 Hours (Table) 06/27/19 Range/Units 07:22 Chloride 111 H (98-107) mmol/L Glucose 73 L (74-99) mg/dL AST 161 H (14-36) U/L ALT 382 H (9-52) U/L Total Protein 6.2 L (6.3-8.2) g/dL Albumin 3.4 L (3.5-5.0) g/dL Assessment and Plan Assessment: Gallstone pancreatitis Elevated LFTs improving, suspected related to passing stone Cholecystitis Plan: Continue on current medication regime ,monitoring and suspect treatment. Awaiting MRCP today,NPO. Potential cholecystectomy as per surgery. Maintain IV fluid hydration. Close monitoring of LFTs, lipase with repeat labs ordered for a.m. The impression and plan of care has been dictated as directed. : I performed a history and examination of this patient, discussed the same with the dictator. I agree with the dictator's note ,documented as a scribe. Any additional findings or plans will be noted.
--- NOTE | 2019-06-27 11:38 | P.PN ---
<Denice Moran - Last Filed: 06/27/19 11:34> Subjective Progress Note Date: 06/27/19 CHIEF COMPLAINT: Abdominal pain HISTORY OF PRESENT ILLNESS: Patient examines weren't at bedside. She denies abdominal pain. Denies nausea or vomiting. She is currently NPO. Bilirubin 0.5. AST 161. ALT 382. Alkaline phosphatase 115. PHYSICAL EXAM: VITAL SIGNS: Reviewed GENERAL: Well-developed in no acute distress. HEENT: No sclera icterus. Extraocular movements grossly intact. Moist buccal mucosa. Head is atraumatic, normocephalic. Hears conversational speech. No nasal drainage. NECK: Supple without lymphadenopathy. CHEST: Non-labored respirations and equal bilateral excursions. CARDIOVASCULAR: Regular rate with regular rhythm. Palpable 2+ radial pulses. ABDOMEN: Soft. Nondistended. Nontender. MUSCULOSKELETAL: No clubbing, cyanosis or edema. NEUROLOGIC: No focal or lateralizing signs. Cranial nerves II through XII grossly intact. PSYCH: Appropriate affect. Alert and oriented to person, place and time. SKIN: Well perfused. Good skin turgor. ASSESSMENT: 1. Gallstone pancreatitis PLAN: NPO. MRCP scheduled for today. Await results. GI on consult and following Inpatient cholecystectomy. Timing to be determined after MRCP results. Nurse practitioner note has been reviewed by physician. Signing provider agrees with the documented findings, assessment, and plan of care. Objective - Vital Signs Vital signs: Vital Signs Temp 97.8 F 06/27/19 07:18 Pulse 66 06/27/19 07:18 Resp 16 06/27/19 07:18 BP 113/71 06/27/19 07:18 Pulse Ox 98 06/27/19 07:18 Intake & Output 06/26/19 06/27/19 06/27/19 18:59 06:59 18:59 Intake Total 1200 Balance 1200 Intake: IV 1200 Sodium Chloride 0.9% 1, 1200 000 ml @ 100 mls/hr IV . Q10H [facility]OW[facility] Rx#:[id number] Other: Voiding Method Toilet # Voids 2 1 - Labs CBC & Chem 7: 06/25/19 21:50 06/27/19 07:22 Labs: Abnormal Lab Results - Last 24 Hours (Table) 06/27/19 Range/Units 07:22 Chloride 111 H (98-107) mmol/L Glucose 73 L (74-99) mg/dL AST 161 H (14-36) U/L ALT 382 H (9-52) U/L Total Protein 6.2 L (6.3-8.2) g/dL Albumin 3.4 L (3.5-5.0) g/dL <KeronGosia N - Last Filed: 06/29/19 19:42> Subjective Surgery on hold pending MRCP results and improvement of pancreatic and liver enzymes Objective - Vital Signs Vital signs: Vital Signs Temp 98.3 F 06/29/19 18:52 Pulse 65 06/29/19 18:52 Resp 18 06/29/19 18:52 BP 133/92 06/29/19 18:52 Pulse Ox 97 06/29/19 18:52 Intake & Output 06/29/19 06/29/19 06/30/19 06:59 18:59 06:59 Intake Total 1500 Output Total 20 Balance 1480 Weight 72.575 kg Intake: IV 1500 Output: Estimated Blood Loss 20 Other: Voiding Method Toilet Toilet # Voids 2 2 - Labs CBC & Chem 7: 06/29/19 08:49 06/29/19 08:49 Labs: Abnormal Lab Results - Last 24 Hours (Table) 06/29/19 Range/Units 08:49 Chloride 110 H (98-107) mmol/L BUN 5 L (7-17) mg/dL AST 41 H (14-36) U/L ALT 187 H (9-52) U/L Total Protein 6.1 L (6.3-8.2) g/dL Albumin 3.4 L (3.5-5.0) g/dL
--- NOTE | 2019-06-27 12:09 | MR ---
MRCP HISTORY: Epigastric pain, right upper quadrant pain Multiplanar multisequence imaging obtained through the biliary system. 3-dimensional reconstructions performed on an alternate workstation. Correlation ultrasound abdomen 06/25/2019 Multiple dependent foci, filling defects within the gallbladder compatible with stones extending into the neck. There are no dilated ducts present. No evident liver mass. No evident filling defect pres ent within the hepatic duct or common bile duct. Suspect there is pericholecystic fluid, gallbladder wall thickening. Gallbladder is distended. Pancreas is within normal limits. Spleen is normal. Adrenal glands and kidneys are normal. There is n o ascites. Aorta shows normal caliber. Lung bases are normal. IMPRESSION: Correlate for cholecystitis.
[2019-06-27] MEDS: AMPICILLIN-SULBACTAM 3 GM in SODIUM CHLORIDE 0.9% 100 ML IVPB SCH (20:34)
[2019-06-28] MEDS: AMPICILLIN-SULBACTAM 3 GM in SODIUM CHLORIDE 0.9% 100 ML IVPB SCH ×5 (01:33→23:42)
[2019-06-28] MEDS: SODIUM CHLORIDE 0.9% 1,000 ML IV SCH ×2 (01:36→13:20)
[2019-06-28 08:06] LABS: ALT 255 U/L (9-52); AST 64 U/L (14-36); African American GFR (CKD) >90 (>60 ml/min/1.73 sqM); Albumin 3.4 g/dL (3.5-5.0); Alkaline Phosphatase 101 U/L (38-126); Anion Gap 7 mmol/L; Blood Urea Nitrogen 7 mg/dL (7-17); Calcium 8.4 mg/dL (8.4-10.2); Carbon Dioxide 25 mmol/L (22-30); Chloride 110 mmol/L (98-107); Glucose 67 mg/dL (74-99); Potassium 3.6 mmol/L (3.5-5.1); Sodium 142 mmol/L (137-145); Total Bilirubin 0.5 mg/dL (0.2-1.3); Total Protein 6.1 g/dL (6.3-8.2)
[2019-06-28 08:20] LABS: Basophils # (A) 0.1 k/uL (0-0.2); Basophils % (A) 2 %; Eosinophils # (A) 0.4 k/uL (0-0.7); Eosinophils % (A) 8 %; HCT 39.5 % (34.0-46.0); Lymphocytes % (A) 39 %; MCH 28.2 pg (25.0-35.0); MCHC 32.8 g/dL (31.0-37.0); Mean Platelet Volume 7.5; Monocytes # (A) 0.3 k/uL (0-1.0); Monocytes % (A) 7 %; Neutrophils % (A) 40 %; Platelet Count 237 k/uL (150-450); RDW 12.9 % (11.5-15.5); WBC 5.1 k/uL (3.8-10.6)
[2019-06-28] MEDS: PANTOPRAZOLE 40 MG/10 ML VIAL IVP SCH (08:43)
--- NOTE | 2019-06-28 10:38 | P.PN ---
Subjective Progress Note Date: 06/27/19 Principal diagnosis: Gallstone pancreatitis Patient was seen lying in bed reporting abdominal pain is improved. Tolerating diet. Objective - Vital Signs Vital signs: Vital Signs Temp 97.3 F L 06/27/19 21:00 Pulse 76 06/27/19 21:00 Resp 18 06/27/19 21:00 BP 125/82 06/27/19 21:00 Pulse Ox 98 06/27/19 21:00 Intake & Output 06/27/19 06/27/19 06/28/19 06:59 18:59 06:59 Intake Total 450 Balance 450 Intake: Oral 450 Other: Voiding Method Toilet # Voids 1 2 1 - Exam On physical examination, patient appears comfortable in no apparent distress. HEAD: Normocephalic, atraumatic. EYES: No scleral icterus. No conjunctival injection. MOUTH: No lesions, tongue midline. NECK: Trachea midline, no gross abnormalities. CHEST: Clear to auscultation with no wheezing or rhonchi appreciated. HEART: Regular rate and rhythm. ABDOMEN: Soft, mildly tender. Bowel sounds are positive. No organomegaly. No guarding or rigidity. EXTREMITIES: No pedal edema. SKIN: No rashes, no jaundice. NEUROLOGIC: Alert and oriented x3. No focal deficits. - Labs CBC & Chem 7: 06/28/19 07:12 06/28/19 07:12 Labs: Abnormal Lab Results - Last 24 Hours (Table) 06/27/19 Range/Units 07:22 Chloride 111 H (98-107) mmol/L Glucose 73 L (74-99) mg/dL AST 161 H (14-36) U/L ALT 382 H (9-52) U/L Total Protein 6.2 L (6.3-8.2) g/dL Albumin 3.4 L (3.5-5.0) g/dL Assessment and Plan (1) Pancreatitis Narrative/Plan: 23-year-old female presenting with reports of abdominal pain found to have elevation of lipase at 10,479 and amylase of 582 with evidence of gallstones and echogenicity in the gallbladder without evidence of biliary dilation or a cholestatic pattern of liver enzymes. Suspicion is for gallstone pancreatitis. Unclear if the patient has a retained stone in the biliary tree or that this is secondary to a gallstone which was passed through the bile duct. MRCP negative for choledocholithiasis. Current Visit: Yes Status: Acute Code(s): K85.90 - ACUTE PANCREATITIS WITHOUT NECROSIS OR INFECTION, UNSP SNOMED Code(s): 28042796 (2) Abdominal pain Current Visit: Yes Status: Acute Code(s): R10.9 - UNSPECIFIED ABDOMINAL PAIN SNOMED Code(s): 75865899 (3) Gallstones Current Visit: Yes Status: Acute Code(s): K80.20 - CALCULUS OF GALLBLADDER W/O CHOLECYSTITIS W/O OBSTRUCTION SNOMED Code(s): 040776586 Plan: Supportive care Okay for diet per surgical recommendations Timing of cholecystectomy per surgical service No plans for ERCP at this time, MRCP negative for choledocholithiasis Thank you for allowing us to participate in the care of this patient, the GI service will stand by, please call us back with any questions or concerns
--- NOTE | 2019-06-28 11:55 | P.PN ---
Subjective Progress Note Date: 06/28/19 CHIEF COMPLAINT: Abdominal pain HISTORY OF PRESENT ILLNESS: Patient examined this morning at bedside. She denies abdominal pain. Denies nausea or vomiting. She is tolerating clear liquid diet. Bilirubin 0.5. AST 64. ALT 255. Lipase 63. PHYSICAL EXAM: VITAL SIGNS: Reviewed GENERAL: Well-developed in no acute distress. HEENT: No sclera icterus. Extraocular movements grossly intact. Moist buccal mucosa. Head is atraumatic, normocephalic. Hears conversational speech. No nasal drainage. NECK: Supple without lymphadenopathy. CHEST: Non-labored respirations and equal bilateral excursions. CARDIOVASCULAR: Regular rate with regular rhythm. Palpable 2+ radial pulses. ABDOMEN: Soft. Nondistended. Nontender. MUSCULOSKELETAL: No clubbing, cyanosis or edema. NEUROLOGIC: No focal or lateralizing signs. Cranial nerves II through XII grossly intact. PSYCH: Appropriate affect. Alert and oriented to person, place and time. SKIN: Well perfused. Good skin turgor. ASSESSMENT: 1. Gallstone pancreatitis PLAN: Continue clear liquid diet. Nothing by mouth at midnight. Repeat LFTs tomorrow morning Patient tentatively scheduled for robotic cholecystectomy tomorrow with Dr. Palomares Nurse practitioner note has been reviewed by physician. Signing provider agrees with the documented findings, assessment, and plan of care. Objective - Vital Signs Vital signs: Vital Signs Temp 98.4 F 06/28/19 05:00 Pulse 59 L 06/28/19 05:00 Resp 18 06/28/19 05:00 BP 103/66 06/28/19 05:00 Pulse Ox 99 06/28/19 05:00 Intake & Output 06/27/19 06/28/19 06/28/19 18:59 06:59 18:59 Intake Total 1350 Balance 1350 Intake: IV 800 Sodium Chloride 0.9% 1, 800 000 ml @ 100 mls/hr IV . Q10H [facility] Rx#:[id number] Intake, IV Titration 100 Amount Ampicillin-Sulbactam 3 gm 100 In Sodium Chloride 0.9% 100 ml @ 200 mls/hr IVPB Q6HR [facility] Rx#:[id number] Oral 450 Other: Voiding Method Toilet Toilet # Voids 2 1 - Labs CBC & Chem 7: 06/28/19 07:12 06/28/19 07:12 Labs: Abnormal Lab Results - Last 24 Hours (Table) 06/28/19 Range/Units 07:12 Chloride 110 H (98-107) mmol/L Glucose 67 L (74-99) mg/dL AST 64 H (14-36) U/L ALT 255 H (9-52) U/L Total Protein 6.1 L (6.3-8.2) g/dL Albumin 3.4 L (3.5-5.0) g/dL
--- NOTE | 2019-06-28 17:40 | P.PN ---
Subjective Progress Note Date: 06/28/19 This is a 23-year-old female with gallstone pancreatitis.NPO, awaiting MRCP today. Denies abdominal pain. Tolerated popsicle at dinner last night with no nausea, vomiting or diarrhea. Denies chest pain, palpitations or shortness of breath. Lipase trending down to 775. T bili 0.5, LFTs trending down, AST 161, ALT 382 and alk phos 1:15 Maintained on IV fluid hydration. Afebrile. 06/28/2019 underwent MRCP yesterday reporting possible cholecystitis, multiple dependent foci, filling defects within the gallbladder compatible with stones extending into the neck, no dilated ducts, suspected. Cholecystic fluid with gallbladder wall thickening, gallbladder distended. Evaluated by surgery and patient is scheduled for cholecystectomy tomorrow. Denies abdominal pain. Denies lightheadedness dizziness or focal deficits. Denies chest pain, palpitations or shortness of breath. Ordering clear liquid diet with no nausea vomiting or diarrhea. T bili 0.5, LFTs continue trending down, lipase 63. Afebrile, normal WBC. Objective - Vital Signs Vital signs: Vital Signs Temp 98.6 F 06/28/19 15:00 Pulse 73 06/28/19 15:00 Resp 16 06/28/19 15:00 BP 120/74 06/28/19 15:00 Pulse Ox 96 06/28/19 15:00 Intake & Output 06/27/19 06/28/19 06/28/19 18:59 06:59 18:59 Intake Total 1350 Balance 1350 Intake: IV 800 Sodium Chloride 0.9% 1, 800 000 ml @ 100 mls/hr IV . Q10H [facility] Rx#:[id number] Intake, IV Titration 100 Amount Ampicillin-Sulbactam 3 gm 100 In Sodium Chloride 0.9% 100 ml @ 200 mls/hr IVPB Q6HR [facility] Rx#:[id number] Oral 450 Other: Voiding Method Toilet Toilet # Voids 2 1 3 - Exam GENERAL:Sitting up in bed, alert and oriented x3, no acute distress. HEENT: Pupils are round and equally reacting to light. EOMI. No scleral icterus. No conjunctival pallor. Normocephalic, atraumatic. No pharyngeal erythema. No thyromegaly. CARDIOVASCULAR: S1 and S2 present. No murmurs, rubs, or gallops. PULMONARY: Chest is clear to auscultation, no wheezing or crackles. ABDOMEN: Soft, nondistended, nontender, normoactive bowel sounds. No palpable organomegaly. MUSCULOSKELETAL: No joint swelling or deformity. EXTREMITIES: No cyanosis, clubbing, or pedal edema. NEUROLOGICAL: Gross neurological examination did not reveal any focal deficits. SKIN: No rashes. - Labs CBC & Chem 7: 06/28/19 07:12 06/28/19 07:12 Labs: Abnormal Lab Results - Last 24 Hours (Table) 06/28/19 Range/Units 07:12 Chloride 110 H (98-107) mmol/L Glucose 67 L (74-99) mg/dL AST 64 H (14-36) U/L ALT 255 H (9-52) U/L Total Protein 6.1 L (6.3-8.2) g/dL Albumin 3.4 L (3.5-5.0) g/dL Assessment and Plan Assessment: Gallstone pancreatitis Elevated LFTs improving, suspected related to passing stone Cholecystitis Plan: Continue on current medication regime ,monitoring and suspect treatment. NPO at midnight, cholecystectomy tomorrow. Maintain IV fluid hydration. Close monitoring of LFTs with repeat labs ordered for a.m. The impression and plan of care has been dictated as directed. : I performed a history and examination of this patient, discussed the same with the dictator. I agree with the dictator's note ,documented as a scribe. Any additional findings or plans will be noted.
[2019-06-29] MEDS: SODIUM CHLORIDE 0.9% 1,000 ML IV SCH ×3 (02:21→11:02)
[2019-06-29] MEDS: AMPICILLIN-SULBACTAM 3 GM in SODIUM CHLORIDE 0.9% 100 ML IVPB SCH ×3 (06:19→17:30)
[2019-06-29] MEDS: PANTOPRAZOLE 40 MG/10 ML VIAL IVP SCH (07:17)
[2019-06-29 09:51] LABS: Basophils # (A) 0.1 k/uL (0-0.2); Basophils % (A) 1 %; Eosinophils # (A) 0.5 k/uL (0-0.7); Eosinophils % (A) 9 %; HGB 12.7 gm/dL (11.4-16.0); Lymphocytes # (A) 2.4 k/uL (1.0-4.8); Lymphocytes % (A) 45 %; MCH 28.6 pg (25.0-35.0); MCHC 33.3 g/dL (31.0-37.0); Mean Platelet Volume 7.3; Monocytes # (A) 0.3 k/uL (0-1.0); Monocytes % (A) 6 %; Neutrophils # (A) 1.9 k/uL (1.3-7.7); Neutrophils % (A) 36 %; Platelet Count 235 k/uL (150-450); RBC 4.42 m/uL (3.80-5.40); WBC 5.4 k/uL (3.8-10.6)
[2019-06-29 10:31] LABS: ALT 187 U/L (9-52); AST 41 U/L (14-36); African American GFR (CKD) >90 (>60 ml/min/1.73 sqM); Albumin 3.4 g/dL (3.5-5.0); Alkaline Phosphatase 81 U/L (38-126); Anion Gap 7 mmol/L; Blood Urea Nitrogen 5 mg/dL (7-17); Calcium 8.7 mg/dL (8.4-10.2); Carbon Dioxide 25 mmol/L (22-30); Chloride 110 mmol/L (98-107); Glucose 74 mg/dL (74-99); Potassium 3.9 mmol/L (3.5-5.1); Sodium 142 mmol/L (137-145); Total Bilirubin 0.5 mg/dL (0.2-1.3); Total Protein 6.1 g/dL (6.3-8.2)
[2019-06-29] MEDS ORDERED: IV FLUID CONTINUATION 100 ML IV ONE (13:00)
[2019-06-29 13:12] VITALS: BMI 27.4
[2019-06-29] MEDS ORDERED: ONDANSETRON 4 MG/2 ML VIAL IVP ONE (14:04)
[2019-06-29] MEDS ORDERED: DEXAMETHASONE SOD PHOS (MDV) 100 MG/10 ML VIAL IVP ONE (14:05)
[2019-06-29] MEDS ORDERED: LACTATED RINGERS 1,000 ML IV ONE ×2 (14:10→15:36)
[2019-06-29] MEDS ORDERED: INDOCYANINE GREEN 25 MG VIAL IV ONE (14:33)
[2019-06-29] MEDS ORDERED: fentaNYL (PF) 50 MCG/ML 2 ML AMP ONE (14:33)
[2019-06-29] MEDS ORDERED: LIDOCAINE 1% INJ 10MG/ML (20 ML MDV) ONE (14:33)
[2019-06-29] MEDS ORDERED: ROCURONIUM BROMIDE 10 MG/ML 10 ML VIAL IV ONE (14:33)
[2019-06-29] MEDS ORDERED: SUCCINYLCHOLINE CHLORIDE 100 MG/5 ML SYR IV ONE (14:33)
[2019-06-29] MEDS ORDERED: MIDAZOLAM 2 MG/2 ML VIAL ONE (14:33)
[2019-06-29] MEDS ORDERED: NEOSTIGMINE 1 MG/ML 10 ML VIAL ONE (14:33)
[2019-06-29] MEDS ORDERED: PROPOFOL 10 MG/ML 20 ML VIAL IV ONE (14:33)
[2019-06-29] MEDS ORDERED: WATER FOR INJECTION, STERILE 10 ML VIAL IV ONE (14:33)
[2019-06-29] MEDS ORDERED: GLYCOPYRROLATE 0.2 MG/ML 2 ML VIAL ONE (14:33)
[2019-06-29] MEDS ORDERED: HEPARIN SODIUM,PORCINE 5,000 UNIT/ML 1 ML VIAL SQ ONE (14:35)
[2019-06-29] MEDS ORDERED: LIDOCAINE 2%-EPI 1:100,000 20 ML VIAL SQ ONE ×2 (14:39)
--- NOTE | 2019-06-29 15:15 | P.PN ---
Subjective Progress Note Date: 06/29/19 This is a 23-year-old female with gallstone pancreatitis.NPO, awaiting MRCP today. Denies abdominal pain. Tolerated popsicle at dinner last night with no nausea, vomiting or diarrhea. Denies chest pain, palpitations or shortness of breath. Lipase trending down to 775. T bili 0.5, LFTs trending down, AST 161, ALT 382 and alk phos 1:15 Maintained on IV fluid hydration. Afebrile. 06/28/2019 underwent MRCP yesterday reporting possible cholecystitis, multiple dependent foci, filling defects within the gallbladder compatible with stones extending into the neck, no dilated ducts, suspected. Cholecystic fluid with gallbladder wall thickening, gallbladder distended. Evaluated by surgery and patient is scheduled for cholecystectomy tomorrow. Denies abdominal pain. Denies lightheadedness dizziness or focal deficits. Denies chest pain, palpitations or shortness of breath. Ordering clear liquid diet with no nausea vomiting or diarrhea. T bili 0.5, LFTs continue trending down, lipase 63. Afebrile, normal WBC. 06/29/2019 scheduled for cholecystectomy today. Denies nausea vomiting or diarrhea. Denies abdominal pain. Denies lightheadedness, dizziness or focal deficits. Vital signs stable. Afebrile, normal WBC. LFTs continue trending down. Objective - Vital Signs Vital signs: Vital Signs Temp 98.7 F 06/29/19 13:00 Pulse 64 06/29/19 13:00 Resp 18 06/29/19 13:00 BP 137/83 06/29/19 13:00 Pulse Ox 100 06/29/19 13:00 Intake & Output 06/28/19 06/29/19 06/29/19 18:59 06:59 18:59 Intake Total 200 Balance 200 Weight 72.575 kg Intake: IV 200 Other: Voiding Method Toilet Toilet Toilet # Voids 3 2 2 - Exam GENERAL:Sitting up in bed, alert and oriented x3, no acute distress. HEENT: Pupils are round and equally reacting to light. EOMI. No scleral icterus. No conjunctival pallor. Normocephalic, atraumatic. CARDIOVASCULAR: S1 and S2 present. No murmurs, rubs, or gallops. PULMONARY: Chest is clear to auscultation, no wheezing or crackles. ABDOMEN: Soft, nondistended, nontender, normoactive bowel sounds. No palpable organomegaly. MUSCULOSKELETAL: No joint swelling or deformity. NEUROLOGICAL: Gross neurological examination did not reveal any focal deficits. SKIN: No rashes. - Labs CBC & Chem 7: 06/29/19 08:49 06/29/19 08:49 Labs: Abnormal Lab Results - Last 24 Hours (Table) 06/29/19 Range/Units 08:49 Chloride 110 H (98-107) mmol/L BUN 5 L (7-17) mg/dL AST 41 H (14-36) U/L ALT 187 H (9-52) U/L Total Protein 6.1 L (6.3-8.2) g/dL Albumin 3.4 L (3.5-5.0) g/dL Assessment and Plan Assessment: Gallstone pancreatitis Elevated LFTs improving, suspected related to passing stone Cholecystitis Plan: Continue on current medication regime ,monitoring and suspect treatment. NPO,cholecystectomy pending. Maintain IV fluid hydration. Close monitoring of LFTs with repeat labs ordered for a.m. discharge planning in progress for tomorrow pending surgeries clearance. The impression and plan of care has been dictated as directed. : I performed a history and examination of this patient, discussed the same with the dictator. I agree with the dictator's note ,documented as a scribe. Any additional findings or plans will be noted.
--- NOTE | 2019-06-29 15:43 | P.OP ---
Date of Procedure: 06/29/19 Description of Procedure: SURGEON: ARTHUR JETT MD PREOPERATIVE DIAGNOSES: 1. Acute gallstone pancreatitis 2. Elevated transaminases 3. , 2 months 4. Breast feeding status POSTOPERATIVE DIAGNOSES: 1. Acute gallstone pancreatitis 2. Elevated transaminases 3. , 2 months 4. Breast feeding status OPERATION: Robotic-assisted da Lois Xi laparoscopic cholecystectomy, multiport with FIREFLY ESTIMATED BLOOD LOSS: 20 mL. SPECIMENS REMOVED: Gallbladder. COMPLICATIONS: None. OPERATIVE FINDINGS: 1. Chronic cholecystitis 2. Console time 10 minutes INDICATIONS: The patient is a 23-year-old female who presents with cholelcystitis. Surgical intervention with a laparoscopic cholecystectomy was described at length including injury to the biliary tree, bleeding, infection, need for further surgery. Informed consent was obtained. Robotic assisted laparoscopic approach was described. Benefits and risks of the procedure including but not limited to bleeding, infection, injury to the biliary tree was described. Informed consent was obtained. DESCRIPTION OF PROCEDURE: Patient was brought to the operating room, placed in supine position. After general induction, the abdomen had been prepped and draped in standard sterile fashion. The robotic da Lois XI system was primed. After a timeout protocol was performed, the patient had been prepped and draped in standard sterile fashion. The patient was injected with indocyanine green. A 5 mm 0 degrees laparoscopic trocar entry was performed along the left upper quadrant. The abdomen insufflated to 15 mmHg pressure which was tolerated well. Diagnostic laparoscopy demonstrated no injury to bowel viscera or mesentery. The liver surface was unremarkable. Next, two 8 mm robotic ports were placed along the right upper abdomen. The camera 8-mm port was maintained along the epigastrium. Another 8 mm port was placed along the left upper abdominal wall after exchanging the 5 mm port. Please note that the ports were placed at least 10 to 15 cm away from the target anatomy of the gallbladder. The robot was docked along the left lateral abdomen. The patient was repositioned in reverse Trendelenburg position. Using a grasper for arm 3, a grasper for arm 4, including hook cautery for arm 1, the robotic system was docked and primed as described. Instruments were interchanged by the rehabilitation assistant including hook cautery, Bovie cautery and clip appliers. I had sat at the console. The gallbladder fundus was retracted over the dome of the liver. Initial attention was brought to the infundibulum which was gently retracted in the inferior lateral approach. Using a grasper, the cystic duct including the cystic artery was carefully skeletonized. FIREFLY was used to identify the cystic artery and cystic structures. A critical view of safety was obtained. Large PLASTIC clips were used throughout the entire case. Using a clip military nurse 2 clips were placed proximally, and 1 clip was placed between the infundibulum and cystic duct and divided using cautery. Next, the cystic artery was similarly clipped and cauterized. Electro-Bovie cautery was used to remove the gallbladder from the hepatic fossa. Hemostasis was checked and found to be adequate. The robot was undocked. I re-scrubbed into the case. Using a 10 mm Endo Catch bag via the left upper quadrant incision, the specimen was removed from the abdominal cavity. All pneumoperitoneum instruments were evacuated from the abdominal cavity. The incisions were reapproximated using 4-0 Monocryl in an interrupted subcuticular fashion. Fascial defects were less than 8 mm in size. Please note along the trocar sites, local anesthetic was placed as a field block prior to insertion of all instruments. Liquid glue was applied to the skin. At the end of the procedure needle, sponge, and instrument count had been verified correct by the surgical scrub tech. The patient was transferred to postanesthesia care unit in stable condition. Intraoperative films were shared with the patient's family who were very pleased with the level of care.
[2019-06-29] MEDS: fentaNYL (PF) 50 MCG/ML 2 ML AMP IV ONE ×2 (16:06→16:19)
[2019-06-29] MEDS: HYDROmorphone 1 MG/ML 1 ML SYRINGE IVP ONE ×2 (16:40→16:55)
[2019-06-29] MEDS: MORPHINE SULFATE 4 MG/ML SYRINGE IVP PRN (21:21)
[2019-06-30] MEDS: AMPICILLIN-SULBACTAM 3 GM in SODIUM CHLORIDE 0.9% 100 ML IVPB SCH ×3 (00:12→11:25)
[2019-06-30] MEDS: SODIUM CHLORIDE 0.9% 1,000 ML IV SCH (06:27)
[2019-06-30 08:25] LABS: ALT 143 U/L (9-52); AST 30 U/L (14-36); African American GFR (CKD) >90 (>60 ml/min/1.73 sqM); Albumin 3.6 g/dL (3.5-5.0); Alkaline Phosphatase 80 U/L (38-126); Anion Gap 8 mmol/L; Blood Urea Nitrogen 4 mg/dL (7-17); Carbon Dioxide 28 mmol/L (22-30); Chloride 105 mmol/L (98-107); Glucose 73 mg/dL (74-99); Potassium 3.7 mmol/L (3.5-5.1); Sodium 141 mmol/L (137-145); Total Bilirubin 0.4 mg/dL (0.2-1.3); Total Protein 6.2 g/dL (6.3-8.2)
[2019-06-30] MEDS: PANTOPRAZOLE 40 MG/10 ML VIAL IVP SCH (09:16)
[2019-06-30] MEDS: MORPHINE SULFATE 4 MG/ML SYRINGE IVP PRN (11:26)
--- NOTE | 2019-06-30 11:47 | P.PN ---
<Denice Moran - Last Filed: 06/30/19 11:45> Subjective Progress Note Date: 06/30/19 CHIEF COMPLAINT: Abdominal pain HISTORY OF PRESENT ILLNESS: Patient is status post robotic cholecystectomy. Postoperative day #1 Patient examined this morning at bedside. Abdominal pain is tolerable. Denies nausea or vomiting. She is tolerating diet. Bilirubin 0.4. AST 30. ALT 143. PHYSICAL EXAM: VITAL SIGNS: Reviewed GENERAL: Well-developed in no acute distress. HEENT: No sclera icterus. Extraocular movements grossly intact. Moist buccal mucosa. Head is atraumatic, normocephalic. Hears conversational speech. No nasal drainage. NECK: Supple without lymphadenopathy. CHEST: Non-labored respirations and equal bilateral excursions. CARDIOVASCULAR: Regular rate with regular rhythm. Palpable 2+ radial pulses. ABDOMEN: Soft. Nondistended. Appropriate surgical tenderness. Surgical incision sites clean dry and intact without drainage. MUSCULOSKELETAL: No clubbing, cyanosis or edema. NEUROLOGIC: No focal or lateralizing signs. Cranial nerves II through XII grossly intact. PSYCH: Appropriate affect. Alert and oriented to person, place and time. SKIN: Well perfused. Good skin turgor. ASSESSMENT: 1. Gallstone pancreatitis PLAN: Continue diet as tolerated Continue Motrin and/or Tylenol for pain at discharge Patient is stable for discharge home today from a surgical standpoint. She is to follow up with Dr. Cabrales outpatient. Nurse practitioner note has been reviewed by physician. Signing provider agrees with the documented findings, assessment, and plan of care. Objective - Vital Signs Vital signs: Vital Signs Temp 98.5 F 06/30/19 05:55 Pulse 63 06/30/19 05:55 Resp 18 06/30/19 08:00 BP 138/88 06/30/19 05:55 Pulse Ox 96 06/30/19 05:55 Intake & Output 06/29/19 06/30/19 06/30/19 18:59 06:59 18:59 Intake Total 1500 Output Total 20 Balance 1480 Weight 72.575 kg Intake: IV 1500 Output: Estimated Blood Loss 20 Other: Voiding Method Toilet Toilet Toilet # Voids 2 3 1 - Labs CBC & Chem 7: 06/29/19 08:49 06/30/19 07:51 Labs: Abnormal Lab Results - Last 24 Hours (Table) 06/30/19 Range/Units 07:51 BUN 4 L (7-17) mg/dL Glucose 73 L (74-99) mg/dL ALT 143 H (9-52) U/L Total Protein 6.2 L (6.3-8.2) g/dL <Gosia Cabrales N - Last Filed: 06/30/19 18:53> Subjective As above. Patient is breast-feeding. May resume breast-feeding today. Patient cleared for discharge. Follow-up as outpatient in 1 week. Objective - Vital Signs Vital signs: Vital Signs Temp 98.6 F 06/30/19 12:31 Pulse 69 06/30/19 12:31 Resp 20 06/30/19 12:31 BP 136/88 06/30/19 12:31 Pulse Ox 97 06/30/19 12:31 Intake & Output 06/29/19 06/30/19 06/30/19 18:59 06:59 18:59 Intake Total 1500 Output Total 20 Balance 1480 Weight 72.575 kg Intake: IV 1500 Output: Estimated Blood Loss 20 Other: Voiding Method Toilet Toilet Toilet # Voids 2 3 2 - Labs CBC & Chem 7: 06/29/19 08:49 06/30/19 07:51 Labs: Abnormal Lab Results - Last 24 Hours (Table) 06/30/19 Range/Units 07:51 BUN 4 L (7-17) mg/dL Glucose 73 L (74-99) mg/dL ALT 143 H (9-52) U/L Total Protein 6.2 L (6.3-8.2) g/dL
[2019-06-30 13:40] VITALS: BP 136/88; PULSE 69; RESP 20; TEMP 98.6
[2019-07-01] MEDS ORDERED: PANTOPRAZOLE 40 MG TABLET PO SCH (07:30)
== END 2019-06-30 14:05 | disposition home or self-care (01) | DRG 418 ==
LOC: EC 20:54 → 4MS4W 23:14
PROVIDERS: ADMIT Family Medicine; ATTEND Family Medicine
PROC: 0FT44ZZ Resection of Gallbladder, Percutaneous Endoscopic Approach (ICD-10-PCS; principal; 2019-06-29 14:00)
PROC: 8E0W4CZ Robotic Assisted Procedure of Trunk Region, Percutaneous Endoscopic Approach (ICD-10-PCS; principal; 2019-06-29 14:00)
DX: K85.10 Biliary acute pancreatitis without necrosis or infection (principal); K80.64 Calculus of gallbladder and bile duct with chronic cholecystitis without obstruction
CPT/HCPCS: 36415; 74181; 76705; 80053; 81001; 81025; 82150; 83690; 84478; 85025; 88304; 96360; 96361; 99285

== ENCOUNTER 2019-09-22 15:48 | Emergency (ER) | payer BC ==
[2019-09-22 15:55] VITALS: RESP 18
[2019-09-22] MEDS ORDERED: PANTOPRAZOLE 40 MG/10 ML VIAL IVP STA (16:14)
[2019-09-22] MEDS ORDERED: ONDANSETRON 4 MG/2 ML VIAL IVP STA (16:14)
[2019-09-22] MEDS ORDERED: SODIUM CHLORIDE 0.9% 1,000 ML IV STA ×2 (16:14)
[2019-09-22] MEDS ORDERED: KETOROLAC 30 MG/ML 1 ML VIAL IVP STA (16:14)
--- NOTE | 2019-09-22 16:17 | ED ---
Abdominal Pain HPI - General Chief Complaint: Abdominal Pain Stated Complaint: Abd Pain, NVD Time Seen by Provider: 09/22/19 16:04 Source: patient, RN notes reviewed, old records reviewed Mode of arrival: ambulatory Limitations: no limitations - History of Present Illness Initial Comments: 20-year-old female presents emergency department today for evaluation for concern for epigastric abdominal pain, nausea vomiting. She reports pain radiates towards her back. She is concerned and felt like similar to her previous pain nausea vomiting GI pancreatitis. Patient also was evaluated for dental pain in the right lower jaw. She has a broken tooth for some time concerned with worsening pain could be acutely infected. Patient states that she's had no fevers or chills. Denies any changes in bowel movements. - Related Data Previous Rx's Medication Instructions Recorded Acetaminophen Tab [Tylenol Tab] 650 mg PO Q4H PRN #30 tablet 06/30/19 Ibuprofen [Motrin] 600 mg PO Q8HR PRN #30 tab 06/30/19 Pantoprazole [Protonix] 40 mg PO AC-BRKFST #0 tablet. 06/30/19 Amoxicillin 500 mg PO TID #30 capsule 09/22/19 Famotidine [Pepcid] 20 mg PO HS #12 tablet 09/22/19 Ondansetron Odt [Zofran Odt] 4 mg PO Q8HR PRN #12 tab 09/22/19 Allergies Allergy/AdvReac Type Severity Reaction Status Date / Time No Known Allergies Allergy Verified 09/22/19 15:51 Review of Systems ROS Statement: Those systems with pertinent positive or pertinent negative responses have been documented in the HPI. ROS Other: All systems not noted in ROS Statement are negative. Past Medical History Past Medical History: No Reported History Additional Past Medical History / Comment(s): STATES HX OF PRE-ECLAMPSIA WITH PREVIOUS . Currently Breast Feeding, pancreatitis History of Any Multi-Drug Resistant Organisms: None Reported Past Surgical History: Section, Cholecystectomy Past Anesthesia/Blood Transfusion Reactions: No Reported Reaction Past Psychological History: No Psychological Hx Reported Smoking Status: Never smoker Past Alcohol Use History: Rare Past Drug Use History: None Reported - Past Family History Mother Family Medical History: No Reported History General Exam - General Exam Comments Initial Comments: 23-year-old female. No distress. Limitations: no limitations General appearance: alert, in no apparent distress Head exam: Present: atraumatic, normocephalic, normal inspection Eye exam: Present: normal appearance, PERRL, EOMI. Absent: scleral icterus, conjunctival injection, periorbital swelling ENT exam: Present: normal exam, mucous membranes moist, other (Patient is broken tooth #30.) Neck exam: Present: normal inspection. Absent: tenderness, meningismus, lymphadenopathy Respiratory exam: Present: normal lung sounds bilaterally. Absent: respiratory distress, wheezes, rales, rhonchi, stridor Cardiovascular Exam: Present: regular rate, normal rhythm, normal heart sounds. Absent: systolic murmur, diastolic murmur, rubs, gallop, clicks GI/Abdominal exam: Present: soft, normal bowel sounds. Absent: distended, tenderness, guarding, rebound, rigid Extremities exam: Present: normal inspection, full ROM, normal capillary refill. Absent: tenderness, pedal edema, joint swelling, calf tenderness Back exam: Present: normal inspection Neurological exam: Present: alert, oriented X3, CN II-XII intact Psychiatric exam: Present: normal affect, normal mood Skin exam: Present: warm, dry, intact, normal color. Absent: rash Course Vital Signs 09/22/19 09/22/19 15:52 17:55 Temperature 97.5 F L 98.5 F Pulse Rate 110 H 84 Respiratory 18 18 Rate Blood Pressure 128/93 115/75 O2 Sat by Pulse 97 98 Oximetry Medical Decision Making - Medical Decision Making 23-year-old female with 1 day of nausea vomiting epigastric abdominal pain. She also complains of some tooth #30 broken tooth pain. No sign of abscess at this time. Patient's labwork was reviewed and auricle. No sign of pancreatitis. Patient reports over the renal after Toradol and Zofran. Discussed Patient follow-up with PCP. O Scotty days or return parameters were discussed. Discharging the Patient with amoxicillin for dental pain. - Lab Data Result diagrams: 09/22/19 16:15 09/22/19 16:15 Lab Results 09/22/19 09/22/19 09/22/19 Range/Units 16:15 16:15 16:30 WBC 12.3 H (3.8-10.6) k/uL RBC 5.52 H (3.80-5.40) m/uL Hgb 15.9 (11.4-16.0) gm/dL Hct 47.6 H (34.0-46.0) % MCV 86.2 (80.0-100.0) fL MCH 28.8 (25.0-35.0) pg MCHC 33.5 (31.0-37.0) g/dL RDW 12.3 (11.5-15.5) % Plt Count 309 (150-450) k/uL Neutrophils % 78 % Lymphocytes % 14 % Monocytes % 3 % Eosinophils % 1 % Basophils % 1 % Neutrophils # 9.6 H (1.3-7.7) k/uL Lymphocytes # 1.8 (1.0-4.8) k/uL Monocytes # 0.4 (0-1.0) k/uL Eosinophils # 0.2 (0-0.7) k/uL Basophils # 0.1 (0-0.2) k/uL Sodium 142 (137-145) mmol/L Potassium 4.5 (3.5-5.1) mmol/L Chloride 103 (98-107) mmol/L Carbon Dioxide 28 (22-30) mmol/L Anion Gap 11 mmol/L BUN 23 H (7-17) mg/dL Creatinine 0.63 (0.52-1.04) mg/dL Est GFR (CKD-EPI)AfAm >90 (>60 ml/min/1.73 sqM) Est GFR (CKD-EPI)NonAf >90 (>60 ml/min/1.73 sqM) Glucose 107 H (74-99) mg/dL Calcium 9.9 (8.4-10.2) mg/dL Total Bilirubin 0.5 (0.2-1.3) mg/dL AST 26 (14-36) U/L ALT 19 (4-34) U/L Alkaline Phosphatase 100 (38-126) U/L Total Protein 8.6 H (6.3-8.2) g/dL Albumin 4.9 (3.5-5.0) g/dL Amylase 57 (30-110) U/L Lipase 70 (23-300) U/L Urine Color Urine Appearance (Clear) Urine pH (5.0-8.0) Ur Specific [place] (1.001-1.035) Urine Protein (Negative) Urine Glucose (UA) (Negative) Urine Ketones (Negative) Urine Blood (Negative) Urine Nitrite (Negative) Urine Bilirubin (Negative) Urine Urobilinogen (<2.0) mg/dL Ur Leukocyte Esterase (Negative) Urine RBC (0-5) /hpf Urine WBC (0-5) /hpf Ur Squamous Epith Cells (0-4) /hpf Hyaline Casts (0-2) /lpf Urine Mucus (None) /hpf Urine HCG, Qual Not Detected (Not Detectd) 09/22/19 Range/Units 16:30 WBC (3.8-10.6) k/uL RBC (3.80-5.40) m/uL Hgb (11.4-16.0) gm/dL Hct (34.0-46.0) % MCV (80.0-100.0) fL MCH (25.0-35.0) pg MCHC (31.0-37.0) g/dL RDW (11.5-15.5) % Plt Count (150-450) k/uL Neutrophils % % Lymphocytes % % Monocytes % % Eosinophils % % Basophils % % Neutrophils # (1.3-7.7) k/uL Lymphocytes # (1.0-4.8) k/uL Monocytes # (0-1.0) k/uL Eosinophils # (0-0.7) k/uL Basophils # (0-0.2) k/uL Sodium (137-145) mmol/L Potassium (3.5-5.1) mmol/L Chloride (98-107) mmol/L Carbon Dioxide (22-30) mmol/L Anion Gap mmol/L BUN (7-17) mg/dL Creatinine (0.52-1.04) mg/dL Est GFR (CKD-EPI)AfAm (>60 ml/min/1.73 sqM) Est GFR (CKD-EPI)NonAf (>60 ml/min/1.73 sqM) Glucose (74-99) mg/dL Calcium (8.4-10.2) mg/dL Total Bilirubin (0.2-1.3) mg/dL AST (14-36) U/L ALT (4-34) U/L Alkaline Phosphatase (38-126) U/L Total Protein (6.3-8.2) g/dL Albumin (3.5-5.0) g/dL Amylase (30-110) U/L Lipase (23-300) U/L Urine Color Yellow Urine Appearance Clear (Clear) Urine pH 5.5 (5.0-8.0) Ur Specific [place] 1.034 (1.001-1.035) Urine Protein 1+ H (Negative) Urine Glucose (UA) Negative (Negative) Urine Ketones Trace H (Negative) Urine Blood Negative (Negative) Urine Nitrite Negative (Negative) Urine Bilirubin Negative (Negative) Urine Urobilinogen 2.0 (<2.0) mg/dL Ur Leukocyte Esterase Trace H (Negative) Urine RBC 3 (0-5) /hpf Urine WBC 2 (0-5) /hpf Ur Squamous Epith Cells 5 H (0-4) /hpf Hyaline Casts 2 (0-2) /lpf Urine Mucus Many H (None) /hpf Urine HCG, Qual (Not Detectd) 09/22/19 19:14 EKG shows sinus tachycardia, otherwise normal EKG. Ventricular rate of 105 beats minute. Was 136 ms. QS duration is 84 ms. QT QTc is 350/462 ms. Disposition Clinical Impression: Pain, dental, Epigastric abdominal pain, Nausea & vomiting Disposition: HOME SELF-CARE Condition: Good Instructions (If sedation given, give patient instructions): Gastroenteritis (ED), Toothache (ED) Additional Instructions: Please use medication as discussed. Please follow up with family doctor if symptoms have not improved over the next two days. Please return to the emergency room if your symptoms increase or worsen or for any other concerns. Prescriptions: Amoxicillin 500 mg PO TID #30 capsule Famotidine [Pepcid] 20 mg PO HS #12 tablet Ondansetron Odt [Zofran Odt] 4 mg PO Q8HR PRN #12 tab PRN Reason: Nausea Is patient prescribed a controlled substance at d/c from ED?: No Referrals: Anahi Li DO [Primary Care Provider] - 1-2 days Time of Disposition: 18:22
[2019-09-22 16:36] LABS: Basophils # (A) 0.1 k/uL (0-0.2); Basophils % (A) 1 %; Eosinophils # (A) 0.2 k/uL (0-0.7); Eosinophils % (A) 1 %; HCT 47.6 % (34.0-46.0); HGB 15.9 gm/dL (11.4-16.0); Lymphocytes # (A) 1.8 k/uL (1.0-4.8); Lymphocytes % (A) 14 %; MCH 28.8 pg (25.0-35.0); MCHC 33.5 g/dL (31.0-37.0); MCV 86.2 fL (80.0-100.0); Mean Platelet Volume 8.7; Monocytes # (A) 0.4 k/uL (0-1.0); Monocytes % (A) 3 %; Neutrophils # (A) 9.6 k/uL (1.3-7.7); Neutrophils % (A) 78 %; Platelet Count 309 k/uL (150-450); RBC 5.52 m/uL (3.80-5.40); RDW 12.3 % (11.5-15.5); WBC 12.3 k/uL (3.8-10.6)
[2019-09-22 16:46] LABS: ALT 19 U/L (4-34); AST 26 U/L (14-36); African American GFR (CKD) >90 (>60 ml/min/1.73 sqM); Albumin 4.9 g/dL (3.5-5.0); Alkaline Phosphatase 100 U/L (38-126); Amylase 57 U/L (30-110); Anion Gap 11 mmol/L; Blood Urea Nitrogen 23 mg/dL (7-17); Calcium 9.9 mg/dL (8.4-10.2); Carbon Dioxide 28 mmol/L (22-30); Chloride 103 mmol/L (98-107); Glucose 107 mg/dL (74-99); Non-African American GFR(CKD) >90 (>60 ml/min/1.73 sqM); Potassium 4.5 mmol/L (3.5-5.1); Sodium 142 mmol/L (137-145); Total Bilirubin 0.5 mg/dL (0.2-1.3); Total Protein 8.6 g/dL (6.3-8.2)
[2019-09-22 17:21] LABS: Appearance,Urine Clear (Clear); Bilirubin,Urine Negative (Negative); Blood,Urine Negative (Negative); Color,Urine Yellow; Glucose,Urine (UA) Negative (Negative); Hyaline Casts,Urine 2 /lpf (0-2); Ketones,Urine Trace (Negative); Leukocyte Esterase,Urine Trace (Negative); Mucus,Urine Many /hpf; Nitrite,Urine Negative (Negative); PH, Urine 5.5 (5.0-8.0); Protein,Urine 1+ (Negative); RBC,Urine 3 /hpf (0-5); Specific Gravity,Urine 1.034 (1.001-1.035); Squamous Epithelial Cell,Urine 5 /hpf (0-4); WBC,Urine 2 /hpf (0-5)
[2019-09-22 18:25] VITALS: BP 115/75; PULSE 84; TEMP 98.5
--- NOTE | 2019-09-22 18:33 | XR ---
EXAMINATION TYPE: XR KUB 2 views DATE OF EXAM: 09/22/2019 5:28 PM CLINICAL HISTORY: Pain TECHNIQUE: 2 upright views COMPARISON: None. FINDINGS: The visualized lung bases and pleural spaces are negative. There is nonspecific dextrorotatory curvature of the upper number spine. There are no acute skeletal findings. Scattered gas is seen in non-distended small bowel loops. Gas and fecal material is seen in non-distended colon. There is no visceromegaly, pneumoperitoneum, or abnormal calcification appreciated. IMPRESSION: No acute radiographic process.
== END 2019-09-22 18:35 | disposition home or self-care (01) ==
LOC: EC 15:48
DX: S02.5XXA Fracture of tooth (traumatic), initial encounter for closed fracture (principal); R10.13 Epigastric pain; R11.2 Nausea with vomiting, unspecified; R19.7 Diarrhea, unspecified; Z90.49 Acquired absence of other specified parts of digestive tract
CPT/HCPCS: 36415; 93005; 80053; 82150; 83690; 85025; 81001; 81025; 74018; 99284; 96374; 96375 ×2; 96361 ×2; J2405; J1885; C9113

== ENCOUNTER 2020-07-04 14:17 | Emergency (ER) | payer BC ==
[2020-07-04 14:22] VITALS: BP 127/69; PULSE 68; RESP 18; TEMP 97
[2020-07-04] MEDS ORDERED: IBUPROFEN 600 MG TAB PO STA (14:46)
--- NOTE | 2020-07-04 15:05 | ED ---
General Adult HPI - General Chief complaint: Extremity Injury, Lower Stated complaint: Fall/leg injury Time Seen by Provider: 07/04/20 14:29 Source: patient, RN notes reviewed Mode of arrival: wheelchair Limitations: no limitations - History of Present Illness Initial comments: 24-year-old female presents to the emergency room for right lower extremity pain. Patient states that she was standing on the edge of her car door when she slipped and her pool hit the edge. This happened just prior to arrival Patient states it is painful to walk on. Denies pain elsewhere. Patient did not hit her head. No loss of consciousness. Fall was mechanical. Patient denies any chance of whatsoever. Patient has no other complaints at this time including shortness of breath, chest pain, abdominal pain, nausea or vomiting, headache, or visual changes. - Related Data Previous Rx's Medication Instructions Recorded Acetaminophen Tab [Tylenol Tab] 650 mg PO Q4H PRN #30 tablet 06/30/19 Ibuprofen [Motrin] 600 mg PO Q8HR PRN #30 tab 06/30/19 Pantoprazole [Protonix] 40 mg PO AC-BRKFST #0 tablet. 06/30/19 Amoxicillin 500 mg PO TID #30 capsule 09/22/19 Famotidine [Pepcid] 20 mg PO HS #12 tablet 09/22/19 Ondansetron Odt [Zofran Odt] 4 mg PO Q8HR PRN #12 tab 09/22/19 Allergies Allergy/AdvReac Type Severity Reaction Status Date / Time No Known Allergies Allergy Verified 07/04/20 14:22 Review of Systems ROS Statement: Those systems with pertinent positive or pertinent negative responses have been documented in the HPI. ROS Other: All systems not noted in ROS Statement are negative. Past Medical History Past Medical History: No Reported History Additional Past Medical History / Comment(s): STATES HX OF PRE-ECLAMPSIA WITH PREVIOUS . Currently Breast Feeding, pancreatitis History of Any Multi-Drug Resistant Organisms: None Reported Past Surgical History: Section, Cholecystectomy Past Anesthesia/Blood Transfusion Reactions: No Reported Reaction Past Psychological History: No Psychological Hx Reported Smoking Status: Never smoker Past Alcohol Use History: Rare Past Drug Use History: None Reported - Past Family History Mother Family Medical History: No Reported History General Exam Limitations: no limitations General appearance: alert, in no apparent distress Head exam: Present: atraumatic, normocephalic, normal inspection Eye exam: Present: normal appearance, PERRL, EOMI. Absent: scleral icterus, conjunctival injection, periorbital swelling ENT exam: Present: normal exam Neck exam: Present: normal inspection, full ROM. Absent: tenderness, meningismus, lymphadenopathy Respiratory exam: Present: normal lung sounds bilaterally. Absent: respiratory distress, wheezes, rales, rhonchi, stridor Cardiovascular Exam: Present: regular rate, normal rhythm, normal heart sounds. Absent: systolic murmur, diastolic murmur, rubs, gallop, clicks GI/Abdominal exam: Present: soft, normal bowel sounds. Absent: distended, tenderness, guarding, rebound, rigid Extremities exam: Present: full ROM (Full range motion of the right lower extremity including the ankle and knee and hip.), tenderness (Tenderness over contusion to the mid anterior pool of the right lower extremity. no tenderness in the foot ankle or knee), normal capillary refill (Capillary refill less than 2 seconds, radial pulse 2+.), other (sensation intact RLE). Absent: calf tenderness (No swelling redness of the right lower extremity.) Neurological exam: Present: alert Course Vital Signs 07/04/20 14:19 Temperature 97 F L Pulse Rate 68 Respiratory 18 Rate Blood Pressure 127/69 O2 Sat by Pulse 97 Oximetry Medical Decision Making - Medical Decision Making X-ray of the right tib-fib shows no acute fracture or dislocation. Patient has contusion from fall. Patient will take Motrin and Tylenol for pain and ice the area. She will follow-up with her doctor. She will return here for any worsening symptoms. Disposition Clinical Impression: Contusion Disposition: HOME SELF-CARE Condition: Good Instructions (If sedation given, give patient instructions): Hematoma (ED) Additional Instructions: Please rest ice and elevate the area. Take Motrin and Tylenol for pain. Follow-up with her doctor in one to 2 days. Return to the emergency room for any worsening symptoms. Is patient prescribed a controlled substance at d/c from ED?: No Referrals: Anahi Li DO [Primary Care Provider] - 1-2 days Time of Disposition: 15:17
--- NOTE | 2020-07-04 15:14 | XR ---
EXAMINATION TYPE: XR tibia fibula RT DATE OF EXAM: 07/04/2020 CLINICAL HISTORY: pain TECHNIQUE: AP and lateral images of the right tibia and fibula are obtained. COMPARISON: None. FINDINGS: There is no acute fracture/dislocation evident. The joint spaces appear within normal davis its. The overlying soft tissue appears unremarkable. IMPRESSION: There is no acute fracture or dislocation seen. ICD 10 NO FRACTURE, INITIAL EVALUATION
== END 2020-07-04 15:40 | disposition home or self-care (01) ==
LOC: EC 14:17
DX: S80.11XA Contusion of right lower leg, initial encounter (principal); W22.8XXA Striking against or struck by other objects, initial encounter; Y92.89 Other specified places as the place of occurrence of the external cause
CPT/HCPCS: 99283

== ENCOUNTER 2020-09-10 12:15 | Emergency (ER) | payer BC ==
[2020-09-10 12:50] VITALS: TEMP 98.6
[2020-09-10] MEDS ORDERED: ONDANSETRON 4 MG/2 ML VIAL IVP STA (13:10)
[2020-09-10] MEDS ORDERED: SODIUM CHLORIDE 0.9% 1,000 ML IV STA (13:10)
[2020-09-10 13:56] LABS: Basophils # (A) 0.1 k/uL (0-0.2); Basophils % (A) 1 %; Eosinophils # (A) 0.2 k/uL (0-0.7); Eosinophils % (A) 3 %; HCT 42.8 % (34.0-46.0); HGB 14.8 gm/dL (11.4-16.0); Lymphocytes # (A) 1.6 k/uL (1.0-4.8); Lymphocytes % (A) 17 %; MCH 28.4 pg (25.0-35.0); MCHC 34.5 g/dL (31.0-37.0); MCV 82.2 fL (80.0-100.0); Mean Platelet Volume 8.5; Monocytes # (A) 0.4 k/uL (0-1.0); Monocytes % (A) 5 %; Neutrophils # (A) 6.7 k/uL (1.3-7.7); Neutrophils % (A) 74 %; Platelet Count 270 k/uL (150-450); RDW 12.7 % (11.5-15.5)
[2020-09-10 14:07] LABS: ALT 12 U/L (4-34); AST 18 U/L (14-36); African American GFR (CKD) >90 (>60 ml/min/1.73 sqM); Albumin 4.7 g/dL (3.5-5.0); Alkaline Phosphatase 69 U/L (38-126); Anion Gap 13 mmol/L; Blood Urea Nitrogen 16 mg/dL (7-17); Calcium 9.7 mg/dL (8.4-10.2); Carbon Dioxide 24 mmol/L (22-30); Chloride 101 mmol/L (98-107); Glucose 74 mg/dL (74-99); Non-African American GFR(CKD) >90 (>60 ml/min/1.73 sqM); Potassium 3.9 mmol/L (3.5-5.1); Sodium 138 mmol/L (137-145); Total Bilirubin 0.8 mg/dL (0.2-1.3)
--- NOTE | 2020-09-10 14:27 | ED ---
Nausea/Vomiting/Diarrhea HPI - General Chief complaint: Nausea/Vomiting/Diarrhea Stated complaint: 8wks preg, N/V/D Time Seen by Provider: 09/10/20 13:05 Source: patient Mode of arrival: ambulatory Limitations: no limitations - History of Present Illness Initial comments: Patient is a 24-year-old female presenting to the emergency Department with complaints of nausea and vomiting for the past 3 days. Patient is currently 8 weeks , she has had nausea throughout this . . ENVIRONMENTAL ENGINEERING ASSISTANT is Dr. Boss. She denies any abdominal pain, no vaginal bleeding. She states she's been trying to sip on some water but feels like she is getting really dehydrated. She denies any dysuria. She denies any fever or chills. She has no further complaints at this time. Upon arrival to the ER, her vitals are stable. - Related Data Previous Rx's Medication Instructions Recorded Acetaminophen Tab [Tylenol Tab] 650 mg PO Q4H PRN #30 tablet 06/30/19 Ibuprofen [Motrin] 600 mg PO Q8HR PRN #30 tab 06/30/19 Pantoprazole [Protonix] 40 mg PO AC-BRKFST #0 tablet. 06/30/19 Amoxicillin 500 mg PO TID #30 capsule 09/22/19 Famotidine [Pepcid] 20 mg PO HS #12 tablet 09/22/19 Ondansetron Odt [Zofran Odt] 4 mg PO Q8HR PRN #12 tab 09/22/19 Cephalexin [Keflex] 500 mg PO BID 3 Days #6 cap 09/10/20 Allergies Allergy/AdvReac Type Severity Reaction Status Date / Time No Known Allergies Allergy Verified 09/10/20 12:50 Review of Systems ROS Statement: Those systems with pertinent positive or pertinent negative responses have been documented in the HPI. ROS Other: All systems not noted in ROS Statement are negative. Past Medical History Past Medical History: No Reported History Additional Past Medical History / Comment(s): STATES HX OF PRE-ECLAMPSIA WITH PREVIOUS . Currently Breast Feeding, pancreatitis History of Any Multi-Drug Resistant Organisms: None Reported Past Surgical History: Section, Cholecystectomy Past Anesthesia/Blood Transfusion Reactions: No Reported Reaction Past Psychological History: No Psychological Hx Reported Smoking Status: Never smoker Past Alcohol Use History: Rare Past Drug Use History: None Reported - Past Family History Mother Family Medical History: No Reported History General Exam - General Exam Comments Initial Comments: GENERAL: Patient is well-developed and well-nourished. Patient is nontoxic and in no acute distress. HEAD: Atraumatic, normocephalic. EYES: Pupils equal round and reactive to light, extraocular movements intact, sclera anicteric, conjunctiva are normal. Eyelids were unremarkable. ENT: TMs normal, nares patent, oropharynx clear without exudates. Moist mucous membranes. NECK: Normal range of motion, supple without lymphadenopathy or JVD. LUNGS: Unlabored respirations. Breath sounds clear to auscultation bilaterally and equal. No wheezes rales or rhonchi. HEART: Regular rate and rhythm without murmurs, rubs or gallops. ABDOMEN: Soft, nontender, normoactive bowel sounds. No guarding, no rebound. No masses appreciated. : Deferred MUSCULOSKELETAL: Normal extremities with adequate strength and normal range of motion, no pitting or edema. No clubbing or cyanosis. NEUROLOGICAL: Patient is alert and oriented x 3. Motor and sensory are also intact. Cranial nerves II through XII grossly intact. Symmetrical smile. Normal speech, normal gait. PSYCH: Normal mood, normal affect. SKIN: Warm, Dry, normal turgor, no rashes or lesions noted. Limitations: no limitations Course Vital Signs 09/10/20 12:47 Temperature 98.6 F Pulse Rate 102 H Respiratory 18 Rate Blood Pressure 121/75 O2 Sat by Pulse 99 Oximetry Medical Decision Making - Medical Decision Making Patient is a 24-year-old female, currently 8 weeks , presenting for nausea and vomiting 3 days. Her vitals are stable upon arrival, she denies any abdominal pain. Her exam is unremarkable. Patient was given some fluids and Zofran. She does report improvement in her symptoms. Her labs are unremarka ble. Patient's urine did show 4+ ketones, occasional bacteria. Patient denies any UTI type symptoms, I will start her on Keflex for asymptomatic bacturuia. Patient is stable for discharge. I will give patient a Zofran to go home with for any additional nausea. To follow-up with her ENVIRONMENTAL ENGINEERING ASSISTANT. She is in agreement with this plan of care. Return parameters were discussed with the patient she verbalized understanding. - Lab Data Result diagrams: 09/10/20 13:10 09/10/20 13:10 Lab Results 09/10/20 09/10/20 09/10/20 Range/Units 13:10 13:10 13:10 WBC 9.0 (3.8-10.6) k/uL RBC 5.20 (3.80-5.40) m/uL Hgb 14.8 (11.4-16.0) gm/dL Hct 42.8 (34.0-46.0) % MCV 82.2 (80.0-100.0) fL MCH 28.4 (25.0-35.0) pg MCHC 34.5 (31.0-37.0) g/dL RDW 12.7 (11.5-15.5) % Plt Count 270 (150-450) k/uL MPV 8.5 Neutrophils % 74 % Lymphocytes % 17 % Monocytes % 5 % Eosinophils % 3 % Basophils % 1 % Neutrophils # 6.7 (1.3-7.7) k/uL Lymphocytes # 1.6 (1.0-4.8) k/uL Monocytes # 0.4 (0-1.0) k/uL Eosinophils # 0.2 (0-0.7) k/uL Basophils # 0.1 (0-0.2) k/uL Sodium 138 (137-145) mmol/L Potassium 3.9 (3.5-5.1) mmol/L Chloride 101 (98-107) mmol/L Carbon Dioxide 24 (22-30) mmol/L Anion Gap 13 mmol/L BUN 16 (7-17) mg/dL Creatinine 0.60 (0.52-1.04) mg/dL Est GFR (CKD-EPI)AfAm >90 (>60 ml/min/1.73 sqM) Est GFR (CKD-EPI)NonAf >90 (>60 ml/min/1.73 sqM) Glucose 74 (74-99) mg/dL Calcium 9.7 (8.4-10.2) mg/dL Total Bilirubin 0.8 (0.2-1.3) mg/dL AST 18 (14-36) U/L ALT 12 (4-34) U/L Alkaline Phosphatase 69 (38-126) U/L Total Protein 8.0 (6.3-8.2) g/dL Albumin 4.7 (3.5-5.0) g/dL Urine Color Yellow Urine Appearance Cloudy H (Clear) Urine pH 6.0 (5.0-8.0) Ur Specific [place] 1.034 (1.001-1.035) Urine Protein 1+ H (Negative) Urine Glucose (UA) Negative (Negative) Urine Ketones 4+ H (Negative) Urine Blood Small H (Negative) Urine Nitrite Negative (Negative) Urine Bilirubin 1+ H (Negative) Urine Urobilinogen 2.0 (<2.0) mg/dL Ur Leukocyte Esterase Negative (Negative) Urine RBC 2 (0-5) /hpf Urine WBC 3 (0-5) /hpf Ur Squamous Epith Cells 18 H (0-4) /hpf Urine Bacteria Occasional H (None) /hpf Urine Mucus Many H (None) /hpf Disposition Clinical Impression: Dehydration, Vomiting during Disposition: HOME SELF-CARE Condition: Stable Instructions (If sedation given, give patient instructions): Nausea and Vomiting in (ED) Additional Instructions: Please return to the Emergency Department if symptoms worsen or any other concerns. Take antibiotic as prescribed. Continue to increase fluid intake. May take Zofran for additional nausea. Follow up with your ENVIRONMENTAL ENGINEERING ASSISTANT. Prescriptions: Cephalexin [Keflex] 500 mg PO BID 3 Days #6 cap Is patient prescribed a controlled substance at d/c from ED?: No Referrals: Anahi Li DO [Primary Care Provider] - 1-2 days
[2020-09-10 14:39] LABS: Appearance,Urine Cloudy (Clear); Bacteria,Urine Occasional /hpf; Bilirubin,Urine 1+ (Negative); Blood,Urine Small (Negative); Color,Urine Yellow; Glucose,Urine (UA) Negative (Negative); Ketones,Urine 4+ (Negative); Leukocyte Esterase,Urine Negative (Negative); Mucus,Urine Many /hpf; Nitrite,Urine Negative (Negative); Protein,Urine 1+ (Negative); RBC,Urine 2 /hpf (0-5); Specific Gravity,Urine 1.034 (1.001-1.035); Squamous Epithelial Cell,Urine 18 /hpf (0-4); WBC,Urine 3 /hpf (0-5)
[2020-09-10] MEDS ORDERED: ONDANSETRON 4 MG ODT STARTER PACK 2 TAB BTL PO STA (15:06)
[2020-09-10 15:17] VITALS: BP 111/64; PULSE 69; RESP 16
[2020-09-10 15:23] LABS: HCG,Quantitative Serum 90517.9 mIU/mL
== END 2020-09-10 15:17 | disposition home or self-care (01) ==
LOC: EC 12:15
DX: O21.9 Vomiting of pregnancy, unspecified (principal); O99.281 Endocrine, nutritional and metabolic diseases complicating pregnancy, first trimester; E86.0 Dehydration; Z3A.08 8 weeks gestation of pregnancy
CPT/HCPCS: 36415; 80053; 85025; 81001; 84702; 99283; 96374; 96361 ×2; J2405; S0119

== ENCOUNTER 2020-12-14 17:25 | Inpatient (IN) | payer BC ==
[2020-12-14 18:19] LABS: Appearance,Urine Clear (Clear); Bacteria,Urine Rare /hpf; Bilirubin,Urine Negative (Negative); Blood,Urine Moderate (Negative); Color,Urine Yellow; Glucose,Urine (UA) Negative (Negative); Ketones,Urine Negative (Negative); Leukocyte Esterase,Urine Trace (Negative); Mucus,Urine Moderate /hpf; Nitrite,Urine Negative (Negative); PH, Urine 6.5 (5.0-8.0); Protein,Urine Trace (Negative); RBC,Urine 34 /hpf (0-5); Specific Gravity,Urine 1.027 (1.001-1.035); Squamous Epithelial Cell,Urine 3 /hpf (0-4); Urobilinogen,Urine <2.0 mg/dL (<2.0); WBC,Urine 3 /hpf (0-5)
--- NOTE | 2020-12-14 18:43 | US ---
EXAMINATION TYPE: US OB >= 14 wk fetus DATE OF EXAM: 12/14/2020 COMPARISON: None CLINICAL HISTORY: viabilityBleeding and cramping x 2 days TECHNIQUE: Transabdominal (TA) GESTATIONAL AGE / DATING Physician Established: (21 weeks/2 days) EDC: 04/24/2021 Dates by LMP: Unknown Dates by First Scan: No previous here Dates by Current Scan: (19 weeks/2 days) EDC: 05/08/2021 Beta HCG (if available): SURVEY IUP: Single PLACENTA: Posterior PREVIA: No Previa KATIE: 13.0 cm Normal CERVICAL LENGTH (transabdominal: norm > 3.0cm): 2.1 cm BIOMETRY PRESENTATION: Breech LIE: Longitudinal BPD: 4.1 cm 18 weeks / 4 days HC: 16.3 cm 19 weeks / 1 days AC: 14.0 cm 19 weeks / 3 days FL: 3.1 cm 19 weeks / 4 days ESTIMATED WEIGHT IN GRAMS: 290 grams ESTIMATED WEIGHT IN LBS/OZ: 0 lbs. 10 oz. WEIGHT PERCENTAGE BASED ON ESTABLISHED DATES: <2% HC/AC: 1.16 Normal FL/AC: 22% Normal HEART RATE: No heart tones IMPRESSION: There is intrauterine demise at approximately 19 weeks gestation. Cervix is closed and measures 2 cm.
[2020-12-14] MEDS ORDERED: ACETAMINOPHEN TAB 325 MG TAB PO PRN (19:02)
[2020-12-14] MEDS ORDERED: ONDANSETRON 4 MG/2 ML VIAL IVP PRN (19:02)
[2020-12-14] MEDS ORDERED: METOCLOPRAMIDE 5 MG/ML 2 ML VIAL IVP PRN (19:02)
[2020-12-14] MEDS ORDERED: BUTORPHANOL 1 MG/ML 1 ML VIAL IV PRN (19:02)
--- NOTE | 2020-12-14 19:13 | P.HPOB ---
History of Present Illness H&P Date: 12/14/20 Chief Complaint: 20+ weeks, intrauterine demise The patient is a 25-year-old 3 para 2001 who initially presented to labor and delivery with complaints of vaginal spotting after contacting me through the contractor buyer system. On labor and delivery, she was found with no heart tones both by toco and by bedside ultrasound confirming the diagnosis of intrauterine demise. Her to this point had been uncomplicated though she was found to be coated positive having first had symptoms approximately 9-10 days ago as did her and both have since tested positive. Symptoms have significantly improved since that time. She has a history of 2 previous sections and preeclampsia with at least one of her pregnancies in the past. She did undergo normal ultrasound on 12/04/2020 at which time the fetus had normal growth at 19-6/7 weeks and a normal anatomic survey. No laboratory workup has been performed for chromosomal issues. The patient reports that she has not had a significant amount of movement during the to this point and is uncertain as to the last time she felt the fetus move. Obstetrical history: 3 para 2001 with 2 previous term sections without complications that she did have preeclampsia with at least 1. Current statistics are listed in history present illness. EDC of 04/24/2021 was established by last menstrual period and confirmed by second trimester ultrasound. Laboratory workup demonstrates a blood type of A+ with a negative antibody screen. Rubella status is immune. Remainder of the laboratory workup was within normal limits. Gynecologic history: Unremarkable with no history of any infections to include STDs Review of Systems Review of systems is confined to history of present illness. Past Medical History Past Medical History: No Reported History Additional Past Medical History / Comment(s): STATES HX OF PRE-ECLAMPSIA WITH PREVIOUS . Currently Breast Feeding, pancreatitis History of Any Multi-Drug Resistant Organisms: None Reported Past Surgical History: Section, Cholecystectomy Past Anesthesia/Blood Transfusion Reactions: No Reported Reaction Smoking Status: Never smoker - Past Family History Mother Family Medical History: No Reported History Medications and Allergies Home Medications Medication Instructions Recorded Confirmed Type Pnv No.95/Ferrous Fum/Folic AC 1 tab PO ONCE 12/14/20 12/14/20 History [ Multivitamin Tablet] Allergies Allergy/AdvReac Type Severity Reaction Status Date / Time No Known Allergies Allergy Verified 12/14/20 17:51 Exam Intake and Output 12/14/20 12/14/20 12/14/20 06:59 14:59 22:59 Other: Weight 77.111 kg In general, this is a well-developed, well-nourished white female in emotional distress. Her heart has a regular rhythm and rate without murmur. Her lungs are clear to auscultation bilaterally in all chavez. Her abdomen is gravid with an appropriate fundal height around the umbilicus, is nontender, and without any masses aside from the uterine fundus. Her extremities are without any cyanosis, clubbing, or edema and are nontender to palpation bilaterally. Digital cervical examination is pending, will be performed with placement of Cytotec. Results Abnormal Lab Results - Last 24 Hours (Table) 12/14/20 Range/Units 18:03 Urine Protein Trace H (Negative) Urine Blood Moderate H (Negative) Ur Leukocyte Esterase Trace H (Negative) Urine RBC 34 H (0-5) /hpf Urine Bacteria Rare H (None) /hpf Urine Mucus Moderate H (None) /hpf Assessment and Plan (1) History of COVID-19 Current Visit: Yes Status: Acute Code(s): Z86.16 - Personal history of COVID-19 SNOMED Code(s): 287795060032340852 (2) 20 weeks gestation of Current Visit: Yes Status: Acute Code(s): Z3A.20 - 20 WEEKS GESTATION OF SNOMED Code(s): 20901788 (3) demise Current Visit: Yes Status: Acute Code(s): GGQ7400 - SNOMED Code(s): 940499201 Plan: The patient has been placed in appropriate isolation room and will undergo induction of labor with Cytotec 400 g every 4 hours vaginally per protocol. IV fluids will be administered per protocol as well. She is a good candidate for either IV or epidural analgesia to include a CURING SUPERVISOR if it becomes necessary. I have discussed with her that the cause of the loss may be found at the time of delivery but may not just as easily. We will have careful examination of the fetus and placenta as well as cord after delivery. She will sign a consent for D&C should the need for D&C arise regarding retained placenta. She will otherwise continue to have close surveillance and expectant management will be practiced per the induction protocol.
[2020-12-14] MEDS: LACTATED RINGERS 1,000 ML IV SCH ×2 (19:35→22:54)
[2020-12-14] MEDS: miSOPROStoL 200 MCG TAB VAGINAL SCH (19:36)
[2020-12-14 19:52] LABS: Basophils # (A) 0.1 k/uL (0-0.2); Basophils % (A) 1 %; Eosinophils # (A) 0.3 k/uL (0-0.7); Eosinophils % (A) 4 %; HCT 42.8 % (34.0-46.0); HGB 14.5 gm/dL (11.4-16.0); Lymphocytes # (A) 1.9 k/uL (1.0-4.8); Lymphocytes % (A) 22 %; MCH 29.6 pg (25.0-35.0); MCHC 33.9 g/dL (31.0-37.0); MCV 87.3 fL (80.0-100.0); Mean Platelet Volume 8.2; Monocytes # (A) 0.3 k/uL (0-1.0); Monocytes % (A) 4 %; Neutrophils # (A) 5.8 k/uL (1.3-7.7); Neutrophils % (A) 67 %; Platelet Count 274 k/uL (150-450); RDW 12.8 % (11.5-15.5); WBC 8.6 k/uL (3.8-10.6)
[2020-12-14] MEDS ORDERED: ROPIVACAINE 5MG/ML 20ML VIAL ONE (22:30)
[2020-12-14] MEDS ORDERED: SODIUM CHLORIDE 0.9% 100 ML BAG ONE (22:30)
[2020-12-14] MEDS ORDERED: fentaNYL (PF) 50 MCG/ML 5 ML AMP ONE (22:30)
[2020-12-15] MEDS: miSOPROStoL 200 MCG TAB VAGINAL SCH ×2 (00:01→05:24)
[2020-12-15] MEDS: OXYTOCIN 30 UNITS/500 ML NS 30 UNIT in SALINE 1 500ML.BAG IV SCH ×2 (01:03→03:02)
[2020-12-15] MEDS ORDERED: ACETAMINOPHEN TAB 325 MG TAB PO PRN (01:27)
[2020-12-15] MEDS ORDERED: diphenhydrAMINE 50 MG/ML 1 ML VIAL IVP PRN ×2 (01:27)
[2020-12-15] MEDS ORDERED: diphenhydrAMINE 50 MG CAP PO PRN (01:27)
[2020-12-15] MEDS ORDERED: diphenhydrAMINE 25 MG CAP PO PRN (01:27)
[2020-12-15] MEDS ORDERED: ZOLPIDEM 5 MG TAB PO PRN (01:27)
[2020-12-15] MEDS ORDERED: SIMETHICONE 80 MG CHEWABLE PO PRN (01:27)
[2020-12-15] MEDS ORDERED: BENZOCAINE/MENTHOL SPRAY 1 GM/SPRAY AEROSOL TOPICAL PRN (01:27)
[2020-12-15] MEDS ORDERED: HYDROCORTISONE 2.5% RECTAL CREAM 30 GM TUBE RECTAL PRN (01:27)
[2020-12-15] MEDS ORDERED: OXYTOCIN 30 UNITS/500 ML NS 30 UNIT in SALINE 1 500ML.BAG IV SCH (01:30)
--- NOTE | 2020-12-15 01:34 | P.PROBDLV ---
Vaginal Delivery Note - . Vaginal Delivery Note: The patient is a 25-year-old 3 para 2001 admitted at 20+ weeks by good dating parameters. She is admitted with a documented intrauterine demise by bedside ultrasound. She is uncertain as to whether she last felt the fetus move. She did have a positive coven test approximately 9 days ago having had symptoms 9-10 days ago. Her is also positive for coven. There symptoms have dissipated since that time. She had a normal ultrasound 10 days ago at which time she measured at 19-6/7 weeks with normal anatomy and no other significant findings. She presented to the hospital with some brownish vaginal spotting and symptoms possibly consistent with urinary tract infection and was found with the diagnoses as noted above. As a result, she was admitted for induction of labor with Cytotec 400 g intravaginally every 4 hours until delivery. She does carry a history of previous 2 sections. On initial examination, her lower uterine segment was bulging to some extent though there was no cervical dilation. The cervix was otherwise soft and approximately 50% effaced. She made some progress after the first dose to approximately 3 cm and, thereafter, progressed very quickly to a spontaneous vaginal delivery of a nonviable roughly 20 week fetus in the breech presentation. The cord was clamped and cut and I presented shortly thereafter. The placenta was delivered spontaneously, intact, and grossly normal though did appear somewhat calcified for an early placenta. This may have been a result of demise for approximately 1 week's time having examined the fetus. The fetus was noted to have fairly poor nasal development and fairly significantly low set ears as well as a gaping mouth. There was some moderate skin sloughing suggesting that the loss was at least approximately 1 week ago. I suspect syndrome make issues or chromosomal abnormality. There was no evidence of cord accident or any placental issues that were evident. There were no lacerations of the perineum, vagina, or cervix. Estimated blood loss for the entire case was approximately 150 mL. There were no complications. All sponge, instrument, needle counts were correct. The patient is resting comfortably in recovery and holding her infant with her significant other in attendance and grieving appropriately. I have discussed all of the potential findings noted above with the patient and her . They are considering options for chromosomal analysis at this time but, thus far, have opted not to proceed in that direction.
[2020-12-15] MEDS: IBUPROFEN 600 MG TAB PO SCH ×2 (03:29→03:48)
[2020-12-15 04:06] VITALS: TEMP 97.2
[2020-12-15] MEDS: LACTATED RINGERS 1,000 ML IV SCH (04:10)
[2020-12-15] MEDS ORDERED: SENNOSIDES-DOCUSATE SODIUM 1 EACH TAB PO SCH (08:00)
[2020-12-15 08:30] VITALS: BP 124/83; PULSE 63; RESP 15
--- NOTE | 2020-12-15 11:27 | P.DS ---
Providers Date of admission: 12/14/20 18:55 Expected date of discharge: 12/15/20 Attending physician: Chloe Boss Primary care physician: Torito Meyers - Discharge Diagnosis(es) (1) History of COVID-19 Status: Acute (2) 20 weeks gestation of Status: Acute (3) demise Status: Acute (4) Normal spontaneous vaginal delivery Status: Acute Hospital Course: The patient is a 25-year-old 3 para 2002 presented to labor and delivery with complaints of vaginal spotting at which time she was found with a 20 week demise in breech presentation. She carries a history of 2 previous sections but had otherwise had an uncomplicated to this point aside from being found with Covid approximately 9 days ago. She had undergone normal anatomic survey approximate 10 days ago in the office with normal growth and normal anatomic survey. On labor and delivery, she was counseled regarding the issues and agreed to undergo induction of labor. She had Cytotec 400 g placed in the vagina and progressed quickly. Shortly after the second dose of Cytotec was placed, she had spontaneous vaginal delivery of a nonviable roughly 20 week fetus. The placenta was delivered shortly thereafter in an intact fashion. Examination of the placenta and cord demonstrated no significant findings although the placenta appeared to be very mature. Examination of the fetus demonstrated what appeared to be somewhat syndrome and findings with low- set ears, a gaping mouth, and poorly developed nasal bones were features. There was moderate skin sloughing indicating that the fetus had likely been lost approximately a week ago. Her course was unremarkable with vital signs or any stable and her temperature was afebrile throughout. She was deemed stable for discharge approximately 8 hours after delivery and was discharged home to follow-up in the office in 2 weeks for a recheck. Discharge instructions included calling for any significantly increased bleeding or foul- smelling lochia, significantly increased fever abdominal pain, perineal complaints, breast concerns, emotional concerns, or anything else that concerned her. She understood her instructions and agrees to follow up as noted above. Discharge medications included only [id number] analgesic pain medications. Maternal blood type is A+ and rubella status is immune. Procedures: #1. Cytotec induction #2. Normal spontaneous vaginal delivery Patient Condition at Discharge: Stable Plan - Discharge Summary New Discharge Prescriptions: No Action Pnv No.95/Ferrous Fum/Folic AC [ Multivitamin Tablet] 1 tab PO ONCE Sertraline HCl [Zoloft] 50 mg PO DAILY Discharge Medication List Pnv No.95/Ferrous Fum/Folic AC [ Multivitamin Tablet] 1 tab PO ONCE 12/14/20 [History] Sertraline HCl [Zoloft] 50 mg PO DAILY 12/14/20 [History] Patient Instructions/Handouts: Vaginal Delivery (DC) Discharge Disposition: HOME SELF-CARE
== END 2020-12-15 10:11 | disposition home or self-care (01) | DRG 807 ==
LOC: FBPOP 17:25 → 4FBP 18:55
PROVIDERS: ADMIT Obstetrics & Gynecology; ATTEND Obstetrics & Gynecology Obstetrics
PROC: 10E0XZZ Delivery of Products of Conception, External Approach (ICD-10-PCS; principal; 2020-12-15)
PROC: 3E0P7VZ Introduction of Hormone into Female Reproductive, Via Natural or Artificial Opening (ICD-10-PCS; 2020-12-15)
DX: O02.1 Missed abortion (principal); Z37.1 Single stillbirth; Z3A.20 20 weeks gestation of pregnancy; O34.219 Maternal care for unspecified type scar from previous cesarean delivery; Z86.16 Personal history of COVID-19
CPT/HCPCS: 76805; 81001; 85025; 86850; 86900; 86901; 88305; 99213

== ENCOUNTER 2023-01-19 16:54 | Outpatient (CLI) | payer BC ==
[2023-01-19] MEDS ORDERED: ACETAMINOPHEN IV (For NPO) 1,000 MG in EMPTY BAG 1 BAG IVPB STA (17:33)
[2023-01-19] MEDS ORDERED: LACTATED RINGERS 1,000 ML IV SCH (17:45)
[2023-01-19 17:51] LABS: Appearance,Urine Cloudy (Clear); Bilirubin,Urine 1+ (Negative); Blood,Urine Negative (Negative); Calcium Oxalate Crystals,Urine Many /hpf; Color,Urine Dark Yellow; Glucose,Urine (UA) Negative (Negative); Ketones,Urine Trace (Negative); Leukocyte Esterase,Urine Trace (Negative); Mucus,Urine Many /hpf; Nitrite,Urine Negative (Negative); PH, Urine 6.5 (5.0-8.0); Protein,Urine 1+ (Negative); RBC,Urine 2 /hpf (0-5); Specific Gravity,Urine 1.031 (1.001-1.035); Squamous Epithelial Cell,Urine 19 /hpf (0-4)
[2023-01-19 18:02] LABS: Basophils % (A) 0 %; Eosinophils # (A) 0.3 k/uL (0-0.7); Eosinophils % (A) 4 %; HGB 11.8 gm/dL (11.4-16.0); Lymphocytes # (A) 1.7 k/uL (1.0-4.8); Lymphocytes % (A) 21 %; MCH 27.7 pg (25.0-35.0); MCHC 33.9 g/dL (31.0-37.0); MCV 81.7 fL (80.0-100.0); Mean Platelet Volume 10.1; Monocytes # (A) 0.5 k/uL (0-1.0); Monocytes % (A) 6 %; Neutrophils # (A) 5.5 k/uL (1.3-7.7); Neutrophils % (A) 66 %; Platelet Count 241 k/uL (150-450); RBC 4.28 m/uL (3.80-5.40); RDW 13.9 % (11.5-15.5); WBC 8.4 k/uL (3.8-10.6)
[2023-01-19 18:12] LABS: Uric Acid 4.1 mg/dL (3.7-7.4)
[2023-01-19 18:52] VITALS: BP 131/91; PULSE 134; RESP 18; TEMP 96.6
--- NOTE | 2023-01-26 09:07 | P.MSEPDOC ---
Presenting Problems - Arrival Data Date of Arrival on Unit: 01/19/23 Time of Arrival on Unit: 16:54 Mode of Transport: Ambulatory - Complaint OB-Reason for Admission/Chief Complaint: Headache Comment: pt presents to triage for dizziness and headache, also c/o SOB, hx of preeclampsia Medical History - Information : 4 Para: 3 Term: 2 : 0 Abortions: Spontaneous or Elective: 1 Number of Living Children: 2 - Gestational Age Gestational Age by RICHELLE (wks/days): 38 Weeks and 2 Days - History Complications: Prior Review of Systems - Review of Systems Constitutional: No problems Breast: No problems ENT: No problems Cardiovascular: No problems Respiratory: No problems Gastrointestinal: No problems Genitourinary: No problems Musculoskeletal: No problems Neurological: No problems Skin: No problems Vital Signs - Temperature Temperature: 96.6 F Temperature Source: Temporal Artery Scan - Pulse Right Brachial Pulse Rate: 134 Pulse Assessment Method: Automatic Cuff - Respirations Respiratory Rate: 18 Oxygen Delivery Method: Room Air O2 Sat by Pulse Oximetry: 96 - Blood Pressure Right Arm Blood Pressure: 131/91 Blood Pressure Mean: 104 Blood Pressure Source: Automatic Cuff Medical Screen Scoring - Uterine Contractions Intensity: Mild Resting: Soft to palpation - Assessment - Baby A Baseline FHR: 145 Heart Rate - NICHD Category: Category I (Normal) NST: Reactive Physician Notification - Physician Notified Physician Notified Date: 01/19/23 Physician Notified Time: 17:30 Physician: Gosia Alves New Order Received: Yes - Notification Comment Comment: PIH labs sent, 1 liter of LR given, and offirmive, pulse down to normal, and bp's 115-118/70's on discharge, pt has appt with Dr. Boss on Maternal Triage Index - Maternal Triage Index Presenting for scheduled procedure w/no complaint: No - Stat/Priority 1 Stat Priority 1: No - Urgent/Priority 2 Urgent Priority 2: Yes Provider Notified: Gosia Alves Provider Notified Time: 17:30 Criteria Met for Priority 2: pt presents to triage for dizziness and headache, also c/o SOB, hx of preeclampsia Disposition - Disposition OB Disposition: Triage, Discharge to home, Written follow up instructions reviewed Discharge Date: 01/19/23 Discharge Time: 16:35 I agree with the RN Medical Screening Exam: Yes Case reviewed; plan agreed upon as documented in EMR&OBIX.: Yes Diagnosis: RELATED CONDITIONS, UNSPECIFIED, THIRD TRIMESTER
== END 2023-01-19 18:35 | disposition home or self-care (01) ==
LOC: FBPOP 16:54
PROVIDERS: ATTEND Obstetrics & Gynecology
DX: O26.893 Other specified pregnancy related conditions, third trimester (principal); R51.9 Headache, unspecified; Z3A.38 38 weeks gestation of pregnancy; O34.219 Maternal care for unspecified type scar from previous cesarean delivery
CPT/HCPCS: 59025; 99215; 96365; 96366; 84450; 84460; 84550; 85025; 81001; J0131

== ENCOUNTER 2023-01-23 16:12 | Outpatient (CLI) | payer BC ==
[2023-01-23 17:08] VITALS: BP 132/84; PULSE 100; RESP 18; TEMP 98.1
--- NOTE | 2023-01-25 15:30 | P.MSEPDOC ---
Presenting Problems - Arrival Data Date of Arrival on Unit: 01/23/23 Time of Arrival on Unit: 16:12 Mode of Transport: Ambulatory - Complaint OB-Reason for Admission/Chief Complaint: Decreased Movement Medical History - Information : 4 Para: 2 Term: 1 : 1 Abortions: Spontaneous or Elective: 1 Number of Living Children: 2 - Gestational Age Gestational Age by RICHELLE (wks/days): 38 Weeks and 6 Days - History Comment: decreased movement today. BPP in the office yesterday, 03/24 per pt Review of Systems - Review of Systems Constitutional: No problems Breast: No problems ENT: No problems Cardiovascular: No problems Respiratory: No problems Gastrointestinal: No problems Genitourinary: No problems Musculoskeletal: No problems Neurological: No problems Skin: No problems Vital Signs - Temperature Temperature: 98.1 F Temperature Source: Temporal Artery Scan - Pulse Right Sitting Brachial Pulse Rate: 100 Pulse Assessment Method: Automatic Cuff - Respirations Respiratory Rate: 18 Oxygen Delivery Method: Room Air O2 Sat by Pulse Oximetry: 97 - Blood Pressure Right Arm Sitting Blood Pressure: 132/84 Blood Pressure Mean: 100 Blood Pressure Source: Automatic Cuff Physician Notification - Physician Notified Physician Notified Date: 01/23/23 Physician Notified Time: 16:45 Physician: Trudy Gordillo Order Received: Yes - Notification Comment Comment: Dc home. NST reactive, pt reports + movement in triage, movement audible. Maternal vitals reviewed. Pt to follow up with Dr Boss as scheduled. Maternal Triage Index - Maternal Triage Index Presenting for scheduled procedure w/no complaint: No - Stat/Priority 1 Stat Priority 1: No - Urgent/Priority 2 Urgent Priority 2: No - Prompt/Priority 3 Prompt Priority 3: No - Non-Urgent/Priority 4 Non-Urgent Priority 4: Yes Criteria Met for Priority 4: + movement today, less movement than usual. Disposition - Disposition OB Disposition: Discharge to home Discharge Date: 01/23/23 Discharge Time: 17:08 I agree with the RN Medical Screening Exam: Yes Case reviewed; plan agreed upon as documented in EMR&OBIX.: Yes Diagnosis: Decreased movement
== END 2023-01-23 17:09 | disposition home or self-care (01) ==
LOC: FBPOP 16:12
PROVIDERS: ATTEND Obstetrics & Gynecology
DX: O36.8131 Decreased fetal movements, third trimester, fetus 1 (principal); Z3A.38 38 weeks gestation of pregnancy
CPT/HCPCS: 59025; 99213

== ENCOUNTER 2023-01-27 10:08 | Inpatient (IN) | payer BC ==
[2023-01-27] MEDS ORDERED: METHYLERGONOVINE 0.2 MG/ML 1 ML AMP IM PRN (10:21)
[2023-01-27] MEDS ORDERED: TRANEXAMIC ACID IN NACL,ISO-OS 1,000 MG in EMPTY BAG 1 BAG IV PRN (10:21)
[2023-01-27] MEDS ORDERED: OXYTOCIN 10 UNIT/ML 1 ML VIAL IM PRN (10:21)
[2023-01-27] MEDS ORDERED: LACTATED RINGERS 1,000 ML IV ONE (10:21)
[2023-01-27] MEDS ORDERED: miSOPROStoL 200 MCG TAB PO PRN (10:21)
[2023-01-27] MEDS ORDERED: CARBOPROST TROMETHAMINE 250 MCG/ML 1 ML AMP IM PRN (10:21)
[2023-01-27] MEDS ORDERED: OXYTOCIN 30 UNITS/500 ML NS 30 UNIT in SALINE 1 500ML.BAG IV SCH (10:30)
[2023-01-27] MEDS ORDERED: CITRIC ACID-SODIUM CITRATE 15 ML CUP PO ONE (10:40)
[2023-01-27 11:42] LABS: Basophils % (A) 0 %; Eosinophils # (A) 0.4 k/uL (0-0.7); Eosinophils % (A) 4 %; HCT 35.6 % (34.0-46.0); HGB 11.5 gm/dL (11.4-16.0); Lymphocytes # (A) 2.5 k/uL (1.0-4.8); Lymphocytes % (A) 25 %; MCH 26.4 pg (25.0-35.0); MCHC 32.3 g/dL (31.0-37.0); MCV 81.7 fL (80.0-100.0); Mean Platelet Volume 10.5; Monocytes # (A) 0.5 k/uL (0-1.0); Monocytes % (A) 5 %; Neutrophils # (A) 6.1 k/uL (1.3-7.7); Neutrophils % (A) 62 %; Platelet Count 234 k/uL (150-450); RBC 4.36 m/uL (3.80-5.40); RDW 14.4 % (11.5-15.5); WBC 9.9 k/uL (3.8-10.6)
[2023-01-27] MEDS: LACTATED RINGERS 1,000 ML IV SCH ×2 (11:47→14:05)
[2023-01-27] MEDS ORDERED: PHENYLEPHRINE-0.9% NACL SYG 1,000 MCG/10 ML SYRINGE ONE (12:00)
[2023-01-27] MEDS ORDERED: ONDANSETRON 4 MG/2 ML VIAL ONE (12:00)
[2023-01-27] MEDS ORDERED: MORPHINE SULFATE (PF) 0.3 MG/0.3 ML SYR ONE (12:00)
[2023-01-27] MEDS ORDERED: OXYTOCIN 30 UNITS/500 ML NS BAG IV ONE (12:00)
[2023-01-27] MEDS ORDERED: KETOROLAC 15 MG/ML 1 ML VIAL ONE (12:00)
[2023-01-27] MEDS ORDERED: DEXAMETHASONE SOD PHOSPHATE 4 MG/ML 1 ML VIAL ONE (12:00)
[2023-01-27] MEDS ORDERED: CELLULOSE,OXIDIZED 1 EACH EACH MISCELLANE ONE (12:30)
--- NOTE | 2023-01-27 13:08 | P.HPOB ---
History of Present Illness H&P Date: 01/27/23 Chief Complaint: IUP at 39 3/7 weeks, history of desires RCS This is a 27-year-old 4 para 09/17/2002 that presents to labor and delivery at 39-3/7 weeks for repeat section. She has been receiving routine care with myself which has been essentially uncomplicated. Patient does have a history of a 16 week loss with her first , second complicated by severe preeclampsia Patient notes good movement, denies contractions, vaginal bleeding. Patient desires repeat section as she was counseled for trial of labor after . On blood work, blood type of A+, rubella status immune, B surface anti gen negative, HIV negative, RPR is nonreactive, group beta strep cultures were negative. Review of Systems Constitutional: Denies chills, Denies fatigue, Denies fever Ears, nose, mouth and throat: Denies headache Cardiovascular: Reports leg edema Respiratory: Denies dyspnea Gastrointestinal: Denies constipation, Denies diarrhea, Denies nausea, Denies vomiting Genitourinary: Reports Past Medical History Past Medical History: No Reported History Additional Past Medical History / Comment(s): STATES HX OF PRE-ECLAMPSIA WITH PREVIOUS . History of Any Multi-Drug Resistant Organisms: None Reported Past Surgical History: Section, Cholecystectomy Past Anesthesia/Blood Transfusion Reactions: No Reported Reaction Past Psychological History: Depression Additional Psychological History / Comment(s): Pt states she started taking zoloft last week for depression. Smoking Status: Never smoker Past Alcohol Use History: None Reported Past Drug Use History: None Reported - Past Family History Mother Family Medical History: No Reported History Medications and Allergies Home Medications Medication Instructions Recorded Confirmed Type Pnv No.95/Ferrous Fum/Folic AC 1 tab PO ONCE 12/14/20 01/27/23 History [ Multivitamin Tablet] Sertraline HCl [Zoloft] 100 mg PO DAILY 12/14/20 01/27/23 History Allergies Allergy/AdvReac Type Severity Reaction Status Date / Time No Known Allergies Allergy Verified 01/27/23 10:20 Exam Osteopathic Statement: *. No significant issues noted on an osteopathic structural exam other than those noted in the History and Physical/Consult. Vital Signs Temp Pulse Resp BP Pulse Ox 01/27/23 10:44 96.9 F L 89 16 138/91 97 Intake and Output 01/26/23 01/27/23 01/27/23 22:59 06:59 14:59 Other: Weight 98.43 kg Targeted physical exam is performed on this date and public information relations manager a well-nourished well-developed female in no acute distress, breathing is noted to be nonlabored, heart has a regular rate and rhythm, abdomen is gravid and appropriate for gestational age, trace to 1+ lower extremity edema is appreciated, heart tones are reactive, category 1, no contractions are appreciated. Cervical exam is deferred Results Result Diagrams: 01/27/23 10:30 Assessment and Plan (1) H/O: Current Visit: No Status: Acute Code(s): Z98.891 - HISTORY OF UTERINE SCAR FROM PREVIOUS SURGERY SNOMED Code(s): 120306431 (2) Term Current Visit: No Status: Acute Code(s): Z34.80 - ENCOUNTER FOR SUPRVSN OF NORMAL , UNSP TRIMESTER SNOMED Code(s): 25911659 Plan: 27-year-old 89 at 39-3/7 weeks that presents to labor and delivery for repeat section. Patient is counseled on trial of labor after and she declines. Patient is counseled on the risks of including but not limited to infection, bleeding, damage to bladder, bowel, ureteric injury patient states understanding and wishes to proceed. Patient was taken back to the operating suite for repeat section.
[2023-01-27] MEDS ORDERED: SIMETHICONE 80 MG CHEWABLE PO PRN (13:17)
[2023-01-27] MEDS ORDERED: METOCLOPRAMIDE 5 MG/ML 2 ML VIAL IVP PRN (13:17)
[2023-01-27] MEDS ORDERED: ZOLPIDEM 5 MG TAB PO PRN (13:17)
[2023-01-27] MEDS ORDERED: NALOXONE 0.4 MG/ML 1 ML VIAL IV PRN (13:17)
[2023-01-27] MEDS ORDERED: diphenhydrAMINE 50 MG/ML 1 ML VIAL IVP PRN ×2 (13:17)
[2023-01-27] MEDS ORDERED: diphenhydrAMINE 25 MG CAP PO PRN (13:17)
[2023-01-27] MEDS ORDERED: ONDANSETRON 4 MG/2 ML VIAL IVP PRN (13:17)
[2023-01-27] MEDS ORDERED: diphenhydrAMINE 50 MG CAP PO PRN (13:17)
--- NOTE | 2023-01-27 13:17 | P.OP ---
Date of Procedure: 01/27/23 Preoperative Diagnosis: IUP at 39-3/7 weeks, history of 1, desires repeat Postoperative Diagnosis: Same Procedure(s) Performed: Repeat section Anesthesia: spinal Surgeon: Chloe Boss Manager Metrology #1: Torito Meyers Estimated Blood Loss (ml): 495 IV fluids (ml): 600 Urine output (ml): 50 Pathology: none sent Condition: stable Disposition: observation Indications for Procedure: History of 1, desires repeat Operative Findings: Normal ovaries were appreciated bilaterally, anterior uterine wall is noted to be densely adherent to the anterior abdominal wall Viable male infant delivered at 1226, weight of 8 lbs. 0 oz., Apgars of 9 and 9 at one and 5 minutes respectively Description of Procedure: Patient was taken back to the operating suite where spinal anesthesia was found be adequate by the anesthesia department. She was then prepped and draped in the normal sterile fashion in the dorsal supine position. A Almeida catheter sterile technique. A Pfannenstiel skin incision was made with scalpel and carried through to the underlying layer fascia. Significant subcutaneous scarring was appreciated. The fascial incision was then extended laterally. The superior aspect of the fascial incision was then grasped peggy clamps, elevated and the underlying rectus muscles dissected off sharply. The inferior aspect of the fascial incision was then grasped peggy clamps, elevated and underlying rectus muscles dissected off sharply. The rectus muscles were then in the midline the peritoneum was identified and significant anterior uterine wall scarring is appreciated. The peritoneum was entered and the uterine wall adhesions were taken down sharply. The bladder blade was then inserted into the pelvis. The bladder was noted to be far from the operating field therefore a hysterotomy incision was made with the scalpel. Clear fluid was obtained and the infant was encountered in the vertex presentation. Infant was delivered in the usual fashion the umbilical cords doubly clamped and cut and the was handed to awaiting RN. Spontaneous cry was noted at . The placenta was then delivered manually and the uterus exteriorized and cleared of all clots and debris. Uterine incision was closed 0 Vicryl in a running locked fashion. A second inverting suture was performed. The anterior uterine wall defect from adhesio lysis was then closed in a running locked fashion. Hemostasis was noted on the hysterotomy incision and the anterior wall closure. The uterus was then returned to the abdomen. The gutters were cleared of all clots and debris. The hysterotomy incision and the anterior wall adhesions were noted to be hemostatic. Interceed was placed over the anterior wall defect. The peritoneum was then loosely reapproximated. The rectus muscles were inspected and found to be hemostatic. The fascia was closed with 0 Vicryl in a running fashion from one lateral edge the midline and the other lateral edge the midline. The 60s tissue was irrigated and any points of bleeding were made hemostatic with the Bovie. The subcu tissues closed with 3-0 Vicryl in a running fashion. The skin was then closed with 4-0 Vicryl in a septic fashion. Steri-Strips and sterile dressing was applied. Uterus is noted to be firm and below the umbilicus at this time. All counts were noted be correct 2 at the end of the procedure. Patient and infant tolerated procedure well.
[2023-01-27] MEDS: PRENATAL VIT-IRON-FOLIC ACID 1 EACH TABLET PO SCH (14:05)
[2023-01-27] MEDS: ACETAMINOPHEN IV (For NPO) 1,000 MG in EMPTY BAG 1 BAG IVPB SCH (16:30)
[2023-01-27] MEDS: IBUPROFEN IV 800 MG in SODIUM CHLORIDE 0.9% 250 ML IV SCH (21:02)
[2023-01-28] MEDS: ACETAMINOPHEN TAB 500 MG TAB PO SCH ×5 (00:04→18:49)
[2023-01-28] MEDS: LACTATED RINGERS 1,000 ML IV SCH ×3 (00:04→07:23)
[2023-01-28] MEDS: SENNOSIDES-DOCUSATE SODIUM 1 EACH TAB PO SCH ×3 (00:04→22:03)
[2023-01-28] MEDS: ACETAMINOPHEN IV (For NPO) 1,000 MG in EMPTY BAG 1 BAG IVPB SCH (00:06)
[2023-01-28] MEDS: IBUPROFEN 600 MG TAB PO SCH ×6 (00:14→22:03)
[2023-01-28 06:27] LABS: Basophils % (A) 0 %; Eosinophils # (A) 0.2 k/uL (0-0.7); Eosinophils % (A) 2 %; HCT 32.2 % (34.0-46.0); HGB 10.7 gm/dL (11.4-16.0); Lymphocytes # (A) 2.2 k/uL (1.0-4.8); Lymphocytes % (A) 22 %; MCH 27.6 pg (25.0-35.0); MCHC 33.4 g/dL (31.0-37.0); MCV 82.6 fL (80.0-100.0); Monocytes # (A) 0.5 k/uL (0-1.0); Monocytes % (A) 5 %; Neutrophils # (A) 6.8 k/uL (1.3-7.7); Neutrophils % (A) 69 %; Platelet Count 205 k/uL (150-450); RDW 14.3 % (11.5-15.5); WBC 9.9 k/uL (3.8-10.6)
[2023-01-28] MEDS: IBUPROFEN IV 800 MG in SODIUM CHLORIDE 0.9% 250 ML IV SCH ×4 (07:22→21:11)
[2023-01-28] MEDS: PRENATAL VIT-IRON-FOLIC ACID 1 EACH TABLET PO SCH (09:00)
[2023-01-28] MEDS: SERTRALINE 50 MG TAB PO SCH (09:22)
--- NOTE | 2023-01-28 11:23 | P.PN ---
Progress Note - Text 01/29/24 621am 27-year-old female status post with spinal Duramorph. Patient seen and evaluated for postop pain control, patient has a VAS of 0 to no complains of nausea vomiting or pruritus
--- NOTE | 2023-01-28 12:06 | P.PNOBGPC ---
Subjective - Subjective Principal diagnosis: Postop day 1, repeat section Interval history: Patient is doing well this morning. 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 She is tolerating a regular diet without nausea or vomiting. She states her pain is well-controlled. She is breast-feeding without difficulty. Her lochia is moderate. Patient reports: Reports appetite normal, Reports voiding normally, Reports pain well controlled, Reports ambulating normally Mobile: doing well, nursing well Objective - Vital Signs Latest vital signs: Vital Signs Temp Pulse Resp BP Pulse Ox 01/28/23 08:00 98.4 F 80 20 132/73 95 01/28/23 03:35 98.1 F 77 16 118/80 97 01/28/23 00:00 97.9 F 66 16 124/81 96 01/27/23 20:00 98.7 F 80 16 125/80 96 01/27/23 15:00 97.8 F 67 16 127/84 96 01/27/23 14:30 62 16 137/82 97 01/27/23 14:00 65 16 136/75 95 01/27/23 13:45 73 16 129/75 96 01/27/23 13:30 71 16 118/69 95 01/27/23 13:15 78 16 106/75 96 01/27/23 13:00 97.0 F L 74 16 127/56 95 Intake and Output 01/27/23 01/28/23 01/28/23 22:59 06:59 14:59 Intake Total 360 Output Total 1885 100 500 Balance -1885 -100 -140 Intake: Oral 360 Output: Urine 1650 100 500 Uretheral ([place]) 450 Output, Quantitative 235 Blood Loss Other: Voiding Method Indwelling Catheter # Voids 1 - Exam Extremities: Present: normal, edema Abdomen: Present: normal appearance, soft Incision: Present: normal, dry, intact Uterus: Present: normal, firm - Labs Labs: Abnormal Lab Results - Last 24 Hours (Table) 01/28/23 Range/Units 05:36 Hgb 10.7 L (11.4-16.0) gm/dL Hct 32.2 L (34.0-46.0) % Assessment and Plan (1) H/O: Current Visit: No Status: Acute Code(s): Z98.891 - HISTORY OF UTERINE SCAR FROM PREVIOUS SURGERY SNOMED Code(s): 529065165 (2) Term Current Visit: No Status: Acute Code(s): Z34.80 - ENCOUNTER FOR SUPRVSN OF NORMAL , UNSP TRIMESTER SNOMED Code(s): 49518466 (3) S/P section Current Visit: Yes Status: Acute Code(s): Z98.891 - HISTORY OF UTERINE SCAR FROM PREVIOUS SURGERY SNOMED Code(s): 191186444 Plan: Patient is doing well postoperatively. She is ambulating and voiding without difficulty. She is tolerating regular diet without nausea or vomiting. Plan to continue routine postoperative care and anticipate discharge home tomorrow.
[2023-01-29] MEDS: ACETAMINOPHEN TAB 500 MG TAB PO SCH ×3 (00:07→09:36)
[2023-01-29] MEDS: IBUPROFEN 600 MG TAB PO SCH (04:12)
--- NOTE | 2023-01-29 08:19 | P.DS ---
Providers Date of admission: 01/27/23 10:08 Expected date of discharge: 01/29/23 Attending physician: Chloe Boss Primary care physician: Axel Li MD - Discharge Diagnosis(es) (1) H/O: Current Visit: No Status: Acute (2) Term Current Visit: No Status: Acute (3) S/P section Current Visit: Yes Status: Acute Hospital Course: This is a 27-year-old 3 para 09/17/2002 presented to labor and delivery on 01/27 for scheduled repeat section. Patient had a prior history of secondary to severe preeclampsia and desires repeat. Patient was receiving routine care without complication. For full details on this patient please see the dictated history and physical. Patient was taken back to the operating suite and repeat was performed without difficulty, for full details on the please see the report. Viable male delivered at 1226, weight of 8 lbs. 0 oz. Patient has been well postoperatively. Postoperative day #2 she is ambulating and voiding without difficulty. She is tolerating a regular diet without nausea or vomiting. Her lochia is minimal to moderate. She is breast-feeding without difficulty. She would like discharge home today. Patient Condition at Discharge: Good Plan - Discharge Summary New Discharge Prescriptions: No Action Pnv No.95/Ferrous Fum/Folic AC [ Multivitamin Tablet] 1 tab PO ONCE Sertraline HCl [Zoloft] 100 mg PO DAILY Discharge Medication List Pnv No.95/Ferrous Fum/Folic AC [ Multivitamin Tablet] 1 tab PO ONCE 12/14/20 [History] Sertraline HCl [Zoloft] 100 mg PO DAILY 12/14/20 [History] Follow up Appointment(s)/Referral(s): Chloe Boss DO [Doctor of Osteopathic Medicine] - 2 Weeks Patient Instructions/Handouts: (DC), (GEN) Activity/Diet/Wound Care/Special Instructions: No tub baths or intercourse until 6 weeks . Patient is counseled on [id number] ibuprofen and Tylenol as needed for pain at home. Routine precautions are reviewed. Patient is to call the office and schedule a routine postoperative appointment in 2 weeks.
[2023-01-29] MEDS: SENNOSIDES-DOCUSATE SODIUM 1 EACH TAB PO SCH (09:36)
[2023-01-29] MEDS: PRENATAL VIT-IRON-FOLIC ACID 1 EACH TABLET PO SCH (10:17)
[2023-01-29] MEDS: SERTRALINE 50 MG TAB PO SCH (10:17)
[2023-01-29 10:30] VITALS: BP 143/89; PULSE 92; RESP 16; TEMP 98.8
== END 2023-01-29 10:50 | disposition home or self-care (01) | DRG 788 ==
LOC: 4FBP 10:08
PROVIDERS: ADMIT Obstetrics & Gynecology Obstetrics; ATTEND Obstetrics & Gynecology Obstetrics
PROC: 10D00Z1 Extraction of Products of Conception, Low, Open Approach (ICD-10-PCS; principal; 2023-01-27 12:00)
DX: O34.211 Maternal care for low transverse scar from previous cesarean delivery (principal); O99.344 Other mental disorders complicating childbirth; F32.A Depression, unspecified; Z79.899 Other long term (current) drug therapy; Z87.59 Personal history of other complications of pregnancy, childbirth and the puerperium; Z28.310 Unvaccinated for COVID-19; Z3A.39 39 weeks gestation of pregnancy; Z37.0 Single live birth
CPT/HCPCS: 85025; 86850; 86900; 86901

== ENCOUNTER → 2023-08-20 | Outpatient (CLI) | payer BC, OTHER ==
--- NOTE | 2023-08-20 11:59 | CT ---
EXAMINATION TYPE: CT abdomen w con DATE OF EXAM: 08/20/2023 COMPARISON: MRCP June 27, 2019 HISTORY: Unspecified abdominal pain CT DLP: 1350 mGycm Automated exposure control for dose reduction was used. TECHNIQUE: Helical acquisition of images was performed from the lung bases through the top of iliac crest to include entire abdomen. CONTRAST: Performed with Oral Contrast and with IV Contrast, patient injected with 100 mL of Isovue 300. FINDINGS: LUNG BASES: No significant abnormality is appreciated. LIVER/GB: Gallbladder is now surgically absent. No new biliary dilatation. PANCREAS: No significant abnormality is seen. SPLEEN: No significant abnormality is seen. ADRENALS: No significant abnormality is seen. KIDNEYS: No significant abnormality is seen. BOWEL: Oral contrast does not reach level of the terminal ileum. No abnormal small or large bowel di latation. LYMPH NODES: No significant abnormality is seen. OSSEOUS STRUCTURES: No significant abnormality is seen. FREE AIR: No free air is visualized. OTHER: Small fat-containing umbilical hernia. IMPRESSION: No new or acute finding identified to account for patient's symptoms of unspecified abdom inal pain.
== END | disposition home or self-care (01) ==
LOC: RADCTMAIN 10:12
PROVIDERS: ATTEND Family Medicine
DX: R10.10 Upper abdominal pain, unspecified (principal); Z87.19 Personal history of other diseases of the digestive system
CPT/HCPCS: 74160; Q9967

== ENCOUNTER 2025-02-18 13:10 | Emergency (ER) | payer OTHER ==
[2025-02-18 13:23] VITALS: TEMP 98.2
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
[2025-02-18] MEDS: ONDANSETRON ODT 4 MG TAB PO STA ×2 (13:55→14:03)
[2025-02-18] MEDS: ACETAMINOPHEN TAB 500 MG TAB PO STA (13:57)
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
[2025-02-18] MEDS: ONDANSETRON 4 MG ODT STARTER PACK 2 TAB BTL PO STA (15:03)
[2025-02-18 15:26] VITALS: BP 127/82; PULSE 72; RESP 17
== END 2025-02-18 15:01 | disposition home or self-care (01) ==
LOC: EC 13:10
DX: R51.9 Headache, unspecified (principal); V49.40XA Driver injured in collision with unspecified motor vehicles in traffic accident, initial encounter; Y92.410 Unspecified street and highway as the place of occurrence of the external cause
CPT/HCPCS: 72125; 70450; 99284; S0119